=== PATIENT | female | born 1945 | race Caucasian/White ===

== ENCOUNTER 2024-03-13 17:18 | Outpatient (CLI) | payer MEDICARE, OTHER, SELFPAY ==
[2024-03-13 17:57] LABS: Appearance Urine Clear (Clear); Bacteria Urine None Seen /hpf; Bilirubin Urine Negative (Negative); Blood Urine Negative (Negative); Color Urine Yellow (Yellow); Glucose Urine UA Negative (Negative); Ketones Urine Negative (Negative); Leukocyte Esterase Ur Negative LEU/UL (Negative); Nitrate Urine Negative (Negative); Non Pathogenic Casts 0-2; Protein Urine Trace mg/dL (Negative); RBC Urine 0-2 /hpf (0-2); Specific Grav Ur 1.021 (1.001-1.035); Squamous Epithelial Cell Urine None Seen /hpf (Few); Urobilinogen Urine 0.2 mg/dL (<2.0); WBC Urine 0-5 /hpf (0-3); pH Urine 5.5 (5.0-9.0)
[2024-03-13 17:58] LABS: Add Urine Microscopic? YES
== END 2024-03-13 17:19 | disposition home or self-care (01) ==
LOC: ANHLAB 17:29
PROVIDERS: PCP Internal Medicine; Visit Provider Internal Medicine
DX: N18.30 Chronic kidney disease, stage 3 unspecified (principal); R30.0 Dysuria
CPT/HCPCS: 81001; 87086

== ENCOUNTER 2024-10-22 01:30 | Day surgery (SDC) | payer MEDICARE, OTHER, SELFPAY ==
[2024-10-16 12:23] VITALS: BMI 20.3
--- NOTE | 2024-10-16 12:46 | PC.NURSE ---
Spoke with PATIENT regarding medication WARFARIN. PATIENT verbalizes understanding that the last dose is to be taken on 10/17/2024 and the Endoscopist will instruct them when to restart after the procedure.
--- OUTSIDE RECORDS SUMMARY | 2024-10-22 01:33 | XMS_ITS | Encounter Summary ---
Author Organization [facility] Address [address] [place] [address] Care Team Providers Care Director [employer] Name Role Phone Lasha Mcallister MD Primary Care Provider [phone] Nathan Tyler MD Unavailable [phone] Encounter Details Date Type Department Care Team (Late st Contact Info) Description 03/02/2023 MyChart Message Enc [facility] [address] [place] [address] [facility], [facility] Provider Air Quality Message Social History Tobacco Use Types Packs/Day Years Used Date Smoking Tobacco: Former Cigarettes 0.5 5 1 967 - 1972 Smokeless Tobacco: Never Alcohol Use Standard Drinks/Week Comments Not Currently 0 (1 standard drink = 0.6 oz pur e alcohol) socially Humiliation, Afraid, Rape, and Kick questionnair e Answer Date Recorded Within the last year, have y ou been afraid of your partner or ex-partner? No 12/18/2022 Within the last year, have y ou been humiliated or emotionally abused in other ways by your partner or ex-partner? No Within the last year, have y ou been kicked, hit, slapped, or otherwise physically hurt by your partner or ex-partner? No 12/18/2022 Within the last year, have y ou been raped or forced to have any kind of sexual activity by your partner or ex-partner? No 12/18/2022 AUDIT-C Answer Date Recorded Frequency of Alcohol Consumption Monthly or less 10/09/2020 Average Number of Drinks Not on file 021 Frequency of Binge Drinking Not on file 12/2020 Overall Financial Resource Strain (CARDIA) Answe r Date Recorded How hard is it for you to pa y for the very basics like food, housing, medical care, and heating? Not hard at all 12/18/2022 PHQ-2 Answer Date Recorded PHQ-2 Score - If the patient scores above 3, please move on to questions 3-9 1 04/06/2021 Hunger Vital Sign Answer Date Recorded Within the past 12 months, y ou worried that your food would run out before you got the money to buy more. Never true 12/19/19 23 Within the past 12 months, t he food you bought just didn't last and you didn't have money to get more. Never true 12/18/2022 PRAPARE - Transportation Answer Date Re corded In the past 12 months, has l ack of transportation kept you from medical appointments or from getting medications? No 12/04 In the past 12 months, has l ack of transportation kept you from meetings, work, or from getting things needed for daily living? No 12/18/2022 Housing Stability Vital Sign Answer Warren e Recorded In the last 12 months, was t here a time when you were not able to pay the mortgage or rent on time? No 12/18/2022 In the last 12 months, how many places have you lived? 1 12/18/2022 In the last 12 months, was t here a time when you did not have a steady place to sleep or slept in a assisted (including now)? No 12/18/2022 Comments No Sex and Gender Information Value Date Recorded Sex Assigned at Female 12/17/2022 10:53 PM CDT Legal Sex Female 8:03 PM CDT Gender Identity Female 12/17/2022 10:53 PM CDT Sexual Orientation Straight 12/17/2022 10 :53 PM CDT Occupation Industry Job Start Date Job End Date Not on file Not on file Not on file Not on file documented as of this encounter Functional Status * Are you deaf or do you have serious difficulty hearing Answer Date of Assessment Author Status No 12/18/2022 4:54 AM CDT Yasmin Lopez RN Active * Are you blind or do you have serious difficulty seeing, even when wearing glasses? Answer Date of Assessment Author Status No 12/18/2022 4:54 AM CDT Yasmin Lopez RN Active * Do you have serious difficulty walking or climbing stairs? Answer Date of Assessment Author Status No 12/18/2022 4:54 AM CDT Yasmin Lopez RN Active * Do you have difficulty dressing or bathing? Answer Date of Assessment Author Status No 12/18/2022 4:54 AM CDT Yasmin Lopez RN Active * Because of a physical, mental, or emotional condition, do you have difficulty doing errands alone such as visiting a doctor's office or shopping? Answer Date of Assessment Author Status No 12/18/2022 4:54 AM CDT Yasmin Lopez RN Active documented as of this encounter Mental Status * Because of a physical, mental, or emotional condition, do you have serious difficulty concentrating, remembering, or making decisions? Answer Entry Date Author Status No 12/18/2022 4:54 AM CDT Yasmin Lopez RN Active documented in this encounter Plan of Treatment Upcoming Encounters Date Type Department Care Team (Late st Contact Info) Description 10/29/2024 9:45 AM AIRCRAFT INSTRUMENT REPAIRER Office Visit [facility] [phone] Josesito Torrez MD [facility]. [address] [id number] 01/21/2025 11:10 AM CDT [facility] [address] [id number] Josesito Torrez MD [facility]. [address] [phone] documented as of this encounter Visit Diagnoses Not on filedocumented in this encounter Additional Health Concerns Infection Onset Date Last Indicated Resolved Time COVID-19 Rule Out 05/30/2024 05/30/2024 05/30/2024 10:20 AM CDT C. difficile 07/12/2024 07/12/2024 Assessment Noted Time PHQ-9 Depression Total Score: 1 04/06/20 21 1:03 PM CDT documented as of this encounter Care Teams Director [employer] Relationship Specialty Start Date End Date Lasha Mcallister MD [address] [facility] [address] [place] [id number] PCP - General INTERNAL MEDICINE 07/06/17 Nathan Tyler MD [address] [facility] [address] [place] [address] Referring Physician 09/22/22 documented as of this encounter
--- OUTSIDE RECORDS SUMMARY | 2024-10-22 01:33 | XMS_ITS | Clinical Summary ---
Author Organization [facility] Address [address] [place] [address] Phone Care Team Providers Care Shear Tender Name Role Phone Lasha Mcallister MD Primary Care Provider [phone] Hugo Vo MD Unavailable [phone] Allergies Active Allergy Reactions Criticality Noted Date Comments Meperidine Vomiting,Unknown Low 03/03/2016 Potassium Chloride Diarrhea,Nausea 10/09/2020 Wheat Other (see Comments) 03/15/2024 Medications pantoprazole (PROTONIX) 40 MG Tablet Delayed Response Oral for 90 01/01/2023 Active warfarin (COUMADIN) 2.5 MG Tablet 1 tablet Oral Once a day 06/12/2024 Active buPROPion (WELLBUTRIN) 300 MG TABLET SR 24 HR XL tablet TAKE 1 TABLET BY MOUTH ONCE DAILY IN THE MORNING Oral 03/23/2022 Active amitriptyline (ELAVIL) 25 MG Tablet Take 50 mg by mouth. 12/01/2021 Active atorvastatin (LIPITOR) 20 MG Tablet 1 tablet Oral Once a day 01/22/2021 Active temazepam (RESTORIL) 15 MG Capsule Take 15 mg by mouth. 03/17/2024 Active spironolactone (ALDACTONE) 25 MG Tablet Take 0.5 Tablets by mouth daily. 07/01/2017 Active sotalol (BETAPACE) 120 MG Tablet SOTALOL HCL TABLET Active Multivitamin-Mi nerals (multiple vitamins-minera ls) Tablet Take 1 Tablet by mouth daily. 05/18/2017 Active latanoprost (XALATAN) 0.005 % Solution 08/03/2024 Active furosemide (LASIX) 40 MG Tablet Take 40 mg by mouth. 04/24/2024 Active cetirizine (ZyrTEC) 10 MG Tablet Take 10 mg by mouth daily. 05/30/2024 Active Calcium Carb-Cholecalci ferol (RA Calcium Plus Vitamin D) 600-5 MG-MCG Tablet Take 1 Tablet by mouth daily. 05/18/2017 Active benzonatate (TESSALON) 100 MG Capsule TAKE 1 CAPSULE BY MOUTH THREE TIMES DAILY NEEDED FOR COUGH 05/30/2024 Active albuterol 108 (90 Base) MCG/ACT Aerosol Solution take 2 Puffs by inhalation. 05/28/2021 Active Active Problems No known active problems Encounters Date Type Department Care Team Description 08/16/2024 1:45 PM EELER Office Visit [facility] [address] [address] Hugo Vo MD Iron deficiency anemia, unspecified iron deficiency anemia type (Primary Dx); Abnormal plasma viscosity 08/16/2024 Travel from Last 3 Months Family History Medical History Relation Name Comments Stroke Brother Chronic Obstructive Pulmonary Disease Father Stroke Sister 1 Relation Name Status Comments Brother Child 1 Alive Child 2 Alive Child 3 Alive Child 4 Alive Father Mother Sister 1 Sister 2 Alive Social History Tobacco Use Types Packs/Day Years Used Date Smoking Tobacco: Never Smokeless Tobacco: Never Tobacco Cessation:Counseling Given: Not Answered Alcohol Use Standard Drinks/Week Comments Not Currently 0 (1 standard drink = 0.6 oz pur e alcohol) Comments Unknown Sex and Gender Information Value Date Recorded Sex Assigned at Not on file Legal Sex Female 1:14 PM CDT Gender Identity Not on file Sexual Orientation Not on file Last Filed Vital Signs Vital Sign Reading Time Taken Comments Blood Pressure 124/70 08/16/2024 1:22 PM EELER Pulse 70 08/16/2024 1:22 PM EELER Temperature 35.9 C (96.6 F) 08/16/2024 1:22 PM EELER Respiratory Rate 18 08/16/2024 1:22 PM EELER Oxygen Saturation 99% 08/16/2024 1:22 PM EELER Inhaled Oxygen Concentration - - Weight 60 kg (132 lb 3.2 oz) 08/16/2024 1:22 PM EELER Height 170.2 cm (5' 7 ) 08/16/2024 1:22 PM EELER Body Mass Index 20.71 08/16/2024 1:22 PM EELER Plan of Treatment Upcoming Encounters Date Type Department Care Team (Late st Contact Info) Description 11/01/2024 2:00 PM EELER Office Visit [facility] [address] [address] Hugo Vo MD [address] [place] [address] Health Maintenance Due Date Last Done Comments Hepatitis C Virus (HCV) Screening 1945 TdaP Immunization 1945 Zoster Immunization (1 of 2) 1994 Respiratory Syncytial Virus (RSV) Immunization (Adult) (1 - 1-dose 75+ series) 2019 Pneumococcal Immunization (50+ years) (3 of 3 - PCV20 or PCV21) 11/30/2019 11/29/2014, 07/06/2000 Influenza Immunization (#1) 05/06/202406/05, 08/23/2021, 06/10/2020, Additional history exists SARS-COV-2 Immunization ( season) 2024 05/25/2022, 08/23/2021, 07/18/2021, Additional history exists DEXA Bone Density 07/14/2024 07/14/2022 Hepatitis B Immunization Aged Out No longer eligible based on patient's age to complete this topic Meningococcal Immunization (ACWY) Aged Out No longer eligible based on patient's age to complete this topic Rotavirus Immunization Aged Out No lo nger eligible based on patient's age to complete this topic Insurance MEDICARE [facility] Advance Directives Documents on File Type Date Recorded Patient Director Corporate Compliance Expl anation Power of Debt Collection Specialist for Health Care 04/27/2024 2:12 PM Care Teams Shear Tender Relationship Specialty Start Date End Date Lasha Mcallister MD [address] [address] PCP - General Internal Medicine 04/27/24 Hugo Vo MD [address] [address] Consulting Physician Oncology 04/27/24
--- OUTSIDE RECORDS SUMMARY | 2024-10-22 01:33 | XMS_ITS ---
Author Organization [facility] Address [address] [facility] [place] [address] Care Team Providers Care Health Information Director Name Role Phone REDD RICK MD Primary Care Provider Magdiel Schwab Unavailable [phone] REASON FOR VISIT Right Shoulder Pain MEDICATIONS Medication SIG (Take, Route, Frequency, Duration) Notes Start Date End Date Status Spironolactone 25 MG TAKE 1/2 (ONE-HALF) TABLET BY MOUTH ONCE DAILY Oral for 90 Active Pantoprazole Sodium 40 MG Oral for 90 Active Latanoprost 0.005 % INSTILL 1 DROP INTO EACH EYE AT BEDTIME Ophthalmic for 30 [id number],Aidei sharifa Active Furosemide 40 MG TAKE 1 TABLET BY MOUTH ONCE DAILY Oral for 90 Active buPROPion HCl ER (XL) 300 MG TAKE 1 TABLET BY MOUTH ONCE DAILY IN THE MORNING Oral Active Warfarin Sodium 2.5 MG 1 tablet Oral Onc e a day Active Temazepam 15 MG TAKE 1 CAPSULE BY MOUTH EVERY DAY AT BEDTIME Oral for 90 Active Atorvastatin Calcium 20 MG 1 tablet Oral Once a day Active VITAL SIGNS Blood pressure systolic 144 mm Hg 06/29/20 24 Blood pressure diastolic 59 mm Hg 024 Heart Rate 72 /min 06/29/2024 Respiratory Rate 18 /min 06/29/2024 Height 5 ft 7 in in 06/29/2024 Weight 141 lbs 06/29/2024 BMI 22.08 kg/m2 06/29/2024 Encounters Encounter Location Date Provider Diagnosis [facility] [address] [facility] [place] [address] 06/29/2024 Magdiel Lilly Primary osteoarthritis, right shoulder M19.011 ; Pain in right shoulder M25.511 and Bursitis of right shoulder M75.51 ASSESSMENTS Encounter Date Diagnosis Assessment Notes Treatment Notes Treatment Clinical Notes 06/29/2024 Primary osteoarthritis, right shoulder (ICD-10 - M19.011) 06/29/2024 Pain in right shoulder (ICD-10 - M25.511) 06/29/2024 Bursitis of right shoulder (ICD-10 - M75.51) PLAN OF TREATMENT Next Appt Details Follow Up: 2 Weeks opv, Reas on: Procedure Notes * Category Sub-Category Detail Notes Shoulder Joint Injection Under Fluoroscopy Locat ion: Right Anesthesia: Local without IV sed ation Operative Technique: After the risks, be nefits, alternative treatments and potential complications related to the procedure were discussed and written and informed consent was obtained, the patient was placed in the supine position on the fluoroscopy table. Standard ASA monitors were applied. The anterior surface of the right shoulder was prepped and draped in the usual sterile fashion with chlorhexidine 2%/IPA 70%. The subacromial space of the selected shoulder was identified under live x-ray guidance. A 25 gauge 1.5 inch needle was inserted in a gun barrel fashion under fluoroscopic guidance. The needle tip was placed into the subacromial space. The subcutaneous structures were anesthetized with 2 mL of 1% Preservative-Free lidocaine during needle placement. A solution of 10 mg of Preservative-Free Dexamethasone (10 mg/mL), plus 2 mL of 0.25% Preservative-Free bupivacaine was mixed and after negative aspiration 3 mL of this solution was slowly injected into the joint. The needle was removed, the skin was cleaned and a band-aid was placed over the puncture site. The patient tolerated the procedure well, was able to ambulate without difficulty and was monitored for 20 minutes. The patient remained hemodynamically and neurologically stable. No apparent complications were observed. Post-operative instructions were reviewed with the patient. The patient was then discharged home in good condition with a medical driver. X-ray time: 5 seconds Progress Notes * Examination Category Sub-Category Detail Notes Examination/ Pre-Anesthesia Assessment General: The patient is alert and franck ented X 3 in moderate distress secondary to pain HEENT: Normocephalic, atrau matic. PERRL. The oropharynx is clear Neck: There is full range of motion of the cervical spine Heart: Regular rate and rhy thm Chest: Clear to auscultatio n bilaterally Abdomen: Soft and benign with normal bowel sounds throughout Musculoskeletal and Extremities: There i s full range of motion of the bilateral upper and lower extremities. There is diffuse tenderness palpation about the right shoulder especially laterally over the deltoid. There is positive impingement at 90 degrees of abduction on the right. There is crepitus with range of motion testing of the right shoulder Neurological: There are no focal s trength deficits in the bilateral upper and lower extremities Skin: Clean, dry and intac t Psychiatric: Mood and affect are normal History and Physical Notes * HPI (History of Present Illness) Category Sub-Category Detail Notes Pain Management Radiographic Imaging An x-ray th oracic and lumbar spine done on 03/15/24 demonstrates minimal scoliosis convex towards the right in the mid thoracic spine and the left in the lower thoracic spine. There is multilevel DDD and spondylosis. There is diffuse DDD and spondylosis throughout the lumbar spine Assessment and Follow-up: Follow-up Plan documen jaron:: Yes MIPS Quality 2020: MIPS Documented:: Compliant
--- OUTSIDE RECORDS SUMMARY | 2024-10-22 01:33 | XMS_ITS | Patient Health Record ---
Author Organization [facility] Address [address] [place] [address] [place] [address] Care Team Providers Care Learning Disabilities Resource Teacher Name Role Phone REDD RICK MD Primary Care Provider Magdiel Schwab Unavailable [phone] ALLERGIES No Known Allergies REASON FOR REFERRAL No Information MEDICATIONS Medication SIG (Take, Route, Frequency, Duration) Notes Start Date End Date Status Furosemide 40 MG TAKE 1 TABLET BY MOUTH ONCE DAILY Oral for 90 Active buPROPion HCl ER (XL) 300 MG TAKE 1 TABLET BY MOUTH ONCE DAILY IN THE MORNING Oral Active Atorvastatin Calcium 20 MG 1 tablet Oral Once a day Active Temazepam 15 MG TAKE 1 CAPSULE BY MOUTH EVERY DAY AT BEDTIME Oral for 90 Active Spironolactone 25 MG TAKE 1/2 (ONE-HALF) TABLET BY MOUTH ONCE DAILY Oral for 90 Active Pantoprazole Sodium 40 MG Oral for 90 Active Latanoprost 0.005 % INSTILL 1 DROP INTO EACH EYE AT BEDTIME Ophthalmic for 30 [id number],Lisandra skaggs Active Warfarin Sodium 2.5 MG 1 tablet Oral Onc e a day Active SOCIAL HISTORY Tobacco Use: Social History Observation Description Date Details (start date - stop date) Never Smoker NA - NA Sex Assigned At : Social History Observation Description Sex Assigned At Unknown Tobacco Use/Smoking Question Answer Notes Are you a nonsmoker PROBLEMS Problem Type ICD Code Onset Dates Problem Status W/U Status Risk SNOMED Code Notes Problem Primary osteoarthriti s, right shoulder (M19.011) Active confirmed Localized, prim que osteoarthritis of the shoulder region (823930159) Problem Pain in right shoulder (M25.511) Active confirmed Pain of right shoulder region (finding) (2491365748) Problem Bursitis of right shoulder (M75.51) Active confirmed Bursitis of rig ht shoulder ([id number]) VITAL SIGNS Heart Rate 72 /min 06/29/2024 Respiratory Rate 18 /min 06/29/2024 Blood pressure diastolic 59 mm Hg 06/29/2024 Height 5 ft 7 in in 06/29/2024 Blood pressure systolic 144 mm Hg 06/29/2024 Weight 141 lbs 06/29/2024 BMI 22.08 kg/m2 06/29/2024 Encounters Encounter Location Date Provider Diagnosis [facility] [address] [place] [address] 06/14/2024 Magdiel Stynowick Primary osteoarthritis, right shoulder M19.011 ; Pain in right shoulder M25.511 and Bursitis of right shoulder M75.51 [facility] [address] [place] [address] 06/15/2024 Magdiel Stynowick Primary osteoarthritis, right shoulder M19.011 and Pain in right shoulder M25.511 [facility] [address] [place] [address] 06/29/2024 Magdiel Stynowick Primary osteoarthritis, right shoulder M19.011 ; Pain in right shoulder M25.511 and Bursitis of right shoulder M75.51 [facility] [address] [place] [address] 07/17/2024 Magdiel Stynowick Primary osteoarthritis, right shoulder M19.011 ; Pain in right shoulder M25.511 and Bursitis of right shoulder M75.51 ASSESSMENTS Encounter Date Diagnosis Assessment Notes Treatment Notes Treatment Clinical Notes 06/15/2024 Primary osteoarthritis, right shoulder (ICD-10 - M19.011) 06/15/2024 Pain in right shoulder (ICD-10 - M25.511) 06/29/2024 Primary osteoarthritis, right shoulder (ICD-10 - M19.011) 06/29/2024 Pain in right shoulder (ICD-10 - M25.511) 06/14/2024 Primary osteoarthritis, right shoulder (ICD-10 - M19.011) Schedule a right shoulder joint injection. The risks of this procedure including pain, bleeding, infection, nerve damage, insomnia, hyperglycemia, hair loss, muscle atrophy, skin depigmentation, weight gain, fluid retention, adrenal suppression, immunosuppression, osteoporosis resulting in fractures, avascular necrosis of the hip, cataracts, bleeding gastric ulcer, worsening pain and failure to relieve pain were discussed and the patient is agreeable to proceeding at this time. 06/14/2024 Pain in right shoulder (ICD-10 - M25.511) 07/17/2024 Primary osteoarthritis, right shoulder (ICD-10 - M19.011) 07/17/2024 Pain in right shoulder (ICD-10 - M25.511) 06/14/2024 Bursitis of right shoulder (ICD-10 - M75.51) 06/29/2024 Bursitis of right shoulder (ICD-10 - M75.51) 07/17/2024 Bursitis of right shoulder (ICD-10 - M75.51) PLAN OF TREATMENT No Information Insurance Providers Payer Name Payer Address Payer Phone Subscriber Number Group Number Insured Name Patient Relationship to Insured Coverage Start Date Coverage End Date Medicare [place] [address] [address] [place] [address] [id number] [place] Self - patient is the insured [employer] [address] [place], [place] [address] [id number] [place] Self - patient is the insured MEDICAL (GENERAL) HISTORY Medical History History ICD Code IBS Asthma GERD Diverticulitis Breast cancer Anemia Depression Migraine CHF AFIB Surgical History Surgery Date(Month/Year) Right mastectomy 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
--- OUTSIDE RECORDS SUMMARY | 2024-10-22 01:34 | XMS_ITS | Referral Summary ---
Author Organization [facility] Address [address] [place] [address] Care Team Providers Care Printmaker Name Role Phone Lasha Mcallister MD Primary Care Provider [phone] Source Comments [facility],non-owned Affiliates and Associated Physician Practices is amultiple site organization consisting of ambulatory clinics and hospital sitesin [place], [place], [place] and [place]. This disclosure is being madepursuant to the Care Everywhere program and may not contain all information available regarding this patient. Last updated 18.[facility] Allergies Active Allergy Reactions Criticality Noted Date Comments Meperidine Nausea and/or Vomiting Low 03/03/2016 Medications * Be aware that medications may not be up to date on this document. Alwaysverify current medications with the patient. Medication Sig Dispensed Refills Start Date End Date Status dabigatran (PRADAXA) 150 MG capsule Take 150 mg by mouth BID. 60 capsule 5 07/12/2017 Active amitriptyline (ELAVIL) 50 MG tablet Take 1 tablet by mouth DAILY. 04/26/2017 Active spironolactone (ALDACTONE) 25 MG tablet Take 25 mg by mouth DAILY. 30 tablet 6 07/01/2017 Active metoprolol tartrate (LOPRESSOR) 25 MG tablet Take 12.5 mg by mouth BID. 60 tablet 3 07/01/2017 Active potassium chloride (KLOR-CON M) 20 MEQ tablet Take 20 mEq by mouth BID. 60 tablet 3 06/03/2017 Active Multiple Vitamins-Minerals (MULTI-VITAMIN/MINERA LS) TABS Take 1 tablet by mouth DAILY. 05/18/2017 Active Calcium Carb-Cholecalciferol (CALCIUM + D3) 600-200 MG-UNIT Take 1 tablet by mouth. 05/18/2017 Active omeprazole (PRILOSEC) 10 MG capsule Take 20 mg by mouth. 05/18/2017 Active venlafaxine XR 24hr (EFFEXOR XR) 150 MG capsule Take 150 mg by mouth daily with breakfast. 04/27/2017 Active mometasone (ASMANEX 60 METERED DOSES) 220 MCG/INH inhaler 03/18/2017 Active Active Problems Problem Noted Date Diagnosed Date Abnormal results of thyroid function studies Shortness of breath 05/28/2017 Other specified postprocedural states 05/28/2017 Overview (12/05/2017): 05/27/2017 Pulmonary hypertension 05/28/2017 Overview (12/05/2017): Severe. 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 04/04/2017 Major depressive disorder, single episode 2016 Essential (primary) hypertension 07/03/2015 Dyspnea 07/03/2015 Palpitations 07/03/2015 Ventricular premature depolarization 07/02/2015 Overview (12/05/2017): Outflow tract PVCs QRS morphology negative in V1,V2 , AVR,AVL,and lead 1, positive in inferior leads, V3-V6 S/P Mid septal RVOT PVC ablation on 04-22-2015 Other malaise 06/19/2015 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 02/28/2015 Malignant neoplasm of female breast 02/28/2015 Noninfective gastroenteritis and colitis 015 Anxiety disorder 08/27/2014 Type 2 diabetes mellitus without complications 1 10/28/2013 Overview (12/05/2017): borderline Uncomplicated asthma 08/27/2014 Age-related osteoporosis wit hout current pathological fracture 08/27/2014 Social History Tobacco Use Types Packs/Day Years Used Date Smoking Tobacco: Former Cigarettes Q uit: 09/05/1970 Smokeless Tobacco: Never Alcohol Use Standard Drinks/Week Comments Yes 1.7 (1 standard drink = 0.6 oz p ure alcohol) Sex and Gender Information Value Date Recorded Sex Assigned at Not on file Gender Identity Not on file Sexual Orientation Not on file Last Filed Vital Signs Vital Sign Reading Time Taken Comments Blood Pressure 110/64 07/13/2017 10:18 AM TEXTILE CHEMIST Pulse 72 07/13/2017 10:18 AM TEXTILE CHEMIST Temperature 36.8 C (98.2 F) 07/01/2017 10:45 AM CDT Respiratory Rate 18 06/03/2017 1:20 PM CDT Oxygen Saturation 100% 07/01/2017 10:45 AM CDT Inhaled Oxygen Concentration - - Weight 64.4 kg (142 lb) 07/13/2017 10:18 AM TEXTILE CHEMIST Height 170.2 cm (5' 7 ) 07/13/2017 10:18 AM TEXTILE CHEMIST Body Mass Index 22.24 07/13/2017 10:18 AM TEXTILE CHEMIST Plan of Treatment Not on file Care Teams Printmaker Relationship Specialty Start Date End Date Lasha Mcallister MD [address] [place] [address] [phone] PCP - General 07/01/14
--- OUTSIDE RECORDS SUMMARY | 2024-10-22 01:34 | XMS_ITS ---
Author Organization [facility] Address [address] [place] [address] [place] [address] Care Team Providers Care Public Health Teacher Name Role Phone REDD RICK MD Primary Care Provider Magdiel Schwab Unavailable [phone] REASON FOR VISIT RT SHOULDER JOINT INJ (LATERAL DELTOID) MEDICATIONS Medication SIG (Take, Route, Frequency, Duration) Notes Start Date End Date Status Temazepam 15 MG TAKE 1 CAPSULE BY MOUTH EVERY DAY AT BEDTIME Oral for 90 Active Warfarin Sodium 2.5 MG 1 tablet Oral Onc e a day Active Pantoprazole Sodium 40 MG Oral for 90 Active Spironolactone 25 MG TAKE 1/2 (ONE-HALF) TABLET BY MOUTH ONCE DAILY Oral for 90 Active Latanoprost 0.005 % INSTILL 1 DROP INTO EACH EYE AT BEDTIME Ophthalmic for 30 [id number],Unavai lable Active Atorvastatin Calcium 20 MG 1 tablet Oral Once a day Active buPROPion HCl ER (XL) 300 MG TAKE 1 TABLET BY MOUTH ONCE DAILY IN THE MORNING Oral Active Furosemide 40 MG TAKE 1 TABLET BY MOUTH ONCE DAILY Oral for 90 Active Encounters Encounter Location Date Provider Diagnosis [facility] [address] [place] [address] 06/15/2024 Magdiel merlinmohsen Primary osteoarthritis, right shoulder M19.011 and Pain in right shoulder M25.511 ASSESSMENTS Encounter Date Diagnosis Assessment Notes Treatment Notes Treatment Clinical Notes 06/15/2024 Primary osteoarthritis, right shoulder (ICD-10 - M19.011) 06/15/2024 Pain in right shoulder (ICD-10 - M25.511) PLAN OF TREATMENT Next Appt Details Follow Up: 2 Weeks OPV, Reas on: Procedure Notes * Category Sub-Category [...] space. The subcutaneous structures were anesthetized with 3 mL of 1% Preservative-Free lidocaine during needle [...] discharged home in good condition with a refuse driver. X-ray time: 9 seconds Progress Notes * Examination Category Sub-Category [...] and Follow-up: Follow-up Plan documen jaron:: Yes [facility] Quality 2020: [facility] Documented:: Compliant
--- OUTSIDE RECORDS SUMMARY | 2024-10-22 01:34 | XMS_ITS | Patient Health Summary ---
Author Organization [facility] Address [address] [place] [address] Care Team Providers Care Coat Repair Inspector Name Role Phone Lasha Mcallister MD Primary Care Provider [phone] Note from [facility],non-owned Affiliates and Associated Physician Practices is amultiple site organization consisting of ambulatory clinics and hospital sitesin [place], [place], [place] and [place]. This disclosure is being madepursuant to the Care Everywhere program and may not contain all information available regarding this patient. Last updated 18.[facility] Allergies * Meperidine(Nausea and/or Vomiting) -Low Criticality Medications * Be aware that medications may not be up to date on this document. Alwaysverify current medications with the patient. * dabigatran (PRADAXA) 150 MG capsule(Started 07/12/2017) Take 150 mg by mouth BID. 5 refills left * amitriptyline (ELAVIL) 50 MG tablet(Started 04/26/2017) Take 1 tablet by mouth DAILY. * spironolactone (ALDACTONE) 25 MG tablet(Started 07/01/2017) Take 25 mg by mouth DAILY. 6 refills left * metoprolol tartrate (LOPRESSOR) 25 MG tablet(Started 07/01/2017) Take 12.5 mg by mouth BID. 3 refills left * potassium chloride (KLOR-CON M) 20 MEQ tablet(Started 06/03/2017) Take 20 mEq by mouth BID. 3 refills left * Multiple Vitamins-Minerals (MULTI-VITAMIN/MINERALS) TABS(Started 05/18/2017) Take 1 tablet by mouth DAILY. * Calcium Carb-Cholecalciferol (CALCIUM + D3) 600-200 MG-UNIT(Started 05/18/2017) Take 1 tablet by mouth. * omeprazole (PRILOSEC) 10 MG capsule(Started 05/18/2017) Take 20 mg by mouth. * venlafaxine XR 24hr (EFFEXOR XR) 150 MG capsule(Started 04/27/2017) Take 150 mg by mouth daily with breakfast. 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 Major depressive disorder, single episode 2016 Essential (primary) hypertension 07/03/2015 Dyspnea 07/03/2015 Palpitations 07/03/2015 Ventricular premature depolarization 07/02/2015 Other malaise 06/19/2015 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 02/28/2015 Malignant neoplasm of female breast 02/28/2015 Noninfective gastroenteritis and colitis 015 Anxiety disorder 08/27/2014 Type 2 diabetes mellitus without complications 1 10/28/2013 Uncomplicated asthma 08/27/2014 Age-related osteoporosis wit hout [...] Comments Blood Pressure 110/64 07/13/2017 10:18 AM [employer] Pulse 72 07/13/2017 10:18 AM [employer] Temperature 36.8 C (98.2 F) 07/01/2017 10:45 AM CDT Respiratory Rate 18 06/03/2017 1:20 PM CDT Oxygen Saturation 100% 07/01/2017 10:45 AM CDT Inhaled Oxygen Concentration - - Weight 64.4 kg (142 lb) 07/13/2017 10:18 AM [employer] Height 170.2 cm (5' 7 ) 07/13/2017 10:18 AM [employer] Body Mass Index 22.24 07/13/2017 10:18 AM [employer] Procedures * ECHO 2D ONLY WO COLOR OR DOPPLER(Performed 07/13/2017) * EKG 12-LEAD(Performed 07/04/2017) * TSH(Performed 07/01/2017) * T4 FREE(Performed 07/01/2017) * CBC W AUTO DIFFERENTIAL(Performed 07/01/2017) * BASIC METABOLIC PANEL (CALCIUM TOTAL)(Performed 07/01/2017) * MAGNESIUM BLOOD(Performed 07/01/2017) * XR CHEST 1VW PORTABLE(Performed 06/03/2017) * GLUCOSE ACCUCHECK(Performed 06/03/2017) * GLUCOSE ACCUCHECK(Performed 06/03/2017) * CBC W/O DIFFERENTIAL(Performed 06/03/2017) * BASIC METABOLIC PANEL (CALCIUM TOTAL)(Performed 06/03/2017) * PHOSPHORUS BLOOD(Performed 06/03/2017) * MAGNESIUM BLOOD(Performed 06/03/2017) * XR CHEST 1VW PORTABLE(Performed 06/03/2017) * GLUCOSE ACCUCHECK(Performed 06/02/2017) * GLUCOSE ACCUCHECK(Performed 06/02/2017) * URINALYSIS W/MICROSCOPIC NO CULTURE(Performed 06/02/2017) * URINALYSIS W/MICROSCOPIC NO CULTURE(Performed 06/02/2017) * CULTURE URINE(Performed 06/02/2017) * GLUCOSE ACCUCHECK(Performed 06/02/2017) * C DIFFICILE GDH AG + TOXIN A+B(Performed 06/02/2017) * GLUCOSE ACCUCHECK(Performed 06/02/2017) * XR CHEST 1VW PORTABLE(Performed 06/02/2017) * CBC W/O DIFFERENTIAL(Performed 06/02/2017) * BASIC METABOLIC PANEL (CALCIUM TOTAL)(Performed 06/02/2017) * PHOSPHORUS BLOOD(Performed 06/02/2017) * MAGNESIUM BLOOD(Performed 06/02/2017) * ECHO LIMITED OR FOLLOWUP(Performed 06/02/2017) * GLUCOSE ACCUCHECK(Performed 06/01/2017) * GLUCOSE ACCUCHECK(Performed 06/01/2017) * GLUCOSE ACCUCHECK(Performed 06/01/2017) * BASIC METABOLIC PANEL (CALCIUM TOTAL)(Performed 06/01/2017) * PHOSPHORUS BLOOD(Performed 06/01/2017) * MAGNESIUM BLOOD(Performed 06/01/2017) * CBC W/O DIFFERENTIAL(Performed 06/01/2017) * XR CHEST 1VW PORTABLE(Performed 06/01/2017) * GLUCOSE ACCUCHECK(Performed 06/01/2017) * GLUCOSE ACCUCHECK(Performed 05/31/2017) * GLUCOSE ACCUCHECK(Performed 05/31/2017) * GLUCOSE ACCUCHECK(Performed 05/31/2017) * BASIC METABOLIC PANEL (CALCIUM TOTAL)(Performed 05/31/2017) * CBC W/O DIFFERENTIAL(Performed 05/31/2017) * PHOSPHORUS BLOOD(Performed 05/31/2017) * MAGNESIUM BLOOD(Performed 05/31/2017) * XR CHEST 1VW PORTABLE(Performed 05/31/2017) * GLUCOSE ACCUCHECK(Performed 05/31/2017) * GLUCOSE ACCUCHECK(Performed 05/30/2017) * GLUCOSE ACCUCHECK(Performed 05/30/2017) * BASIC METABOLIC PANEL (CALCIUM TOTAL)(Performed 05/30/2017) * GLUCOSE ACCUCHECK(Performed 05/30/2017) * BASIC METABOLIC PANEL (CALCIUM TOTAL)(Performed 05/30/2017) * PHOSPHORUS BLOOD(Performed 05/30/2017) * MAGNESIUM BLOOD(Performed 05/30/2017) * CBC W/O DIFFERENTIAL(Performed 05/30/2017) * GLUCOSE ACCUCHECK(Performed 05/30/2017) * XR CHEST 1VW PORTABLE(Performed 05/30/2017) * EKG 12-LEAD(Performed 05/30/2017) * GLUCOSE ACCUCHECK(Performed 05/29/2017) * GLUCOSE ACCUCHECK(Performed 05/29/2017) * XR CHEST 1VW PORTABLE(Performed 05/29/2017) * XR CHEST 1VW PORTABLE(Performed 05/29/2017) * GLUCOSE ACCUCHECK(Performed 05/29/2017) * XR CHEST 1VW PORTABLE(Performed 05/29/2017) * SEROTONIN RELEASE ASSAY PANEL(Performed 05/29/2017) * HEPARIN PLATELET INDUCED ANTIBODY(Performed 05/29/2017) * CALCIUM IONIZED WHOLE BLOOD(Performed 05/29/2017) * MAGNESIUM BLOOD(Performed 05/29/2017) * GLUCOSE ACCUCHECK(Performed 05/29/2017) * XR CHEST 1VW PORTABLE(Performed 05/29/2017) * CALCIUM IONIZED WHOLE BLOOD(Performed 05/29/2017) * BASIC METABOLIC PANEL (CALCIUM TOTAL)(Performed 05/29/2017) * PHOSPHORUS BLOOD(Performed 05/29/2017) * MAGNESIUM BLOOD(Performed 05/29/2017) * CBC W/O DIFFERENTIAL(Performed 05/29/2017) * EKG 12-LEAD(Performed 05/29/2017) * GLUCOSE ACCUCHECK(Performed 05/28/2017) * GLUCOSE ACCUCHECK(Performed 05/28/2017) * GLUCOSE ACCUCHECK(Performed 05/28/2017) * GLUCOSE ACCUCHECK(Performed 05/28/2017) * GLUCOSE ACCUCHECK(Performed 05/28/2017) * GLUCOSE ACCUCHECK(Performed 05/28/2017) * GLUCOSE ACCUCHECK(Performed 05/28/2017) * GLUCOSE ACCUCHECK(Performed 05/28/2017) * XR CHEST 1VW PORTABLE(Performed 05/28/2017) * GLUCOSE ACCUCHECK(Performed 05/28/2017) * URINALYSIS W/MICROSCOPIC NO CULTURE(Performed 05/28/2017) * GLUCOSE ACCUCHECK(Performed 05/28/2017) * MAGNESIUM BLOOD(Performed 05/28/2017) * BLOOD GASES ARTERIAL(Performed 05/28/2017) * CALCIUM IONIZED WHOLE BLOOD(Performed 05/28/2017) * GLUCOSE ACCUCHECK(Performed 05/28/2017) * GLUCOSE ACCUCHECK(Performed 05/28/2017) * ECHO COMPLETE(Performed 05/28/2017) * EKG 12-LEAD(Performed 05/28/2017) * EKG 12-LEAD(Performed 05/28/2017) * EKG 12-LEAD(Performed 05/28/2017) * CULTURE BLOOD(Performed 05/27/2017) * CULTURE BLOOD(Performed 05/27/2017) * CULTURE URINE(Performed 05/27/2017) * CBC W/O DIFFERENTIAL(Performed 05/27/2017) * BASIC METABOLIC PANEL (CALCIUM TOTAL)(Performed 05/27/2017) * PHOSPHORUS BLOOD(Performed 05/27/2017) * MAGNESIUM BLOOD(Performed 05/27/2017) * SVO2 FOR RECALIBRATION(Performed 05/27/2017) * BLOOD GASES ARTERIAL(Performed 05/27/2017) * CALCIUM IONIZED WHOLE BLOOD(Performed 05/27/2017) * GLUCOSE ACCUCHECK(Performed 05/27/2017) * GLUCOSE ACCUCHECK(Performed 05/27/2017) * GLUCOSE ACCUCHECK(Performed 05/27/2017) * BLOOD GASES ARTERIAL(Performed 05/27/2017) * GLUCOSE ACCUCHECK(Performed 05/27/2017) * BLOOD GASES MARIA ELENA(Performed 05/27/2017) * SVO2 FOR RECALIBRATION(Performed 05/27/2017) * BLOOD GASES ARTERIAL(Performed 05/27/2017) * GLUCOSE ACCUCHECK(Performed 05/27/2017) * BLOOD GASES ARTERIAL(Performed 05/27/2017) * GLUCOSE ACCUCHECK(Performed 05/27/2017) * BLOOD GASES ARTERIAL(Performed 05/27/2017) * GLUCOSE ACCUCHECK(Performed 05/27/2017) * SVO2 FOR RECALIBRATION(Performed 05/27/2017) * GLUCOSE ACCUCHECK(Performed 05/27/2017) * XR CHEST 1VW PORTABLE(Performed 05/27/2017) * GLUCOSE ACCUCHECK(Performed 05/27/2017) * XR CHEST 1VW PORTABLE(Performed 05/27/2017) * SVO2 FOR RECALIBRATION(Performed 05/27/2017) * BLOOD GASES MARIA ELENA(Performed 05/27/2017) * CBC W/O DIFFERENTIAL(Performed 05/27/2017) * BASIC METABOLIC PANEL (CALCIUM TOTAL)(Performed 05/27/2017) * PHOSPHORUS BLOOD(Performed 05/27/2017) * MAGNESIUM BLOOD(Performed 05/27/2017) * PTT SLH(Performed 05/27/2017) * PT-INR SLH(Performed 05/27/2017) * SVO2 FOR RECALIBRATION(Performed 05/27/2017) * BLOOD GASES ARTERIAL(Performed 05/27/2017) * CALCIUM IONIZED WHOLE BLOOD(Performed 05/27/2017) * GLUCOSE ACCUCHECK(Performed 05/27/2017) * FIBRINOGEN ACTIVITY(Performed 05/27/2017) * PTT [facility](Performed 05/27/2017) * CBC W/O DIFFERENTIAL(Performed 05/27/2017) * PT-INR SL[facility](Performed 05/27/2017) * BLOOD GASES ART COMPLETE SLH OR(Performed 05/27/2017) * ACT - POCT (IP) SL[facility](Performed 05/27/2017) * ACT - POCT (IP) SLH(Performed 05/27/2017) * BLOOD GASES ART COMPLETE [facility] OR(Performed 05/27/2017) * ACT - POCT (IP) SL[facility](Performed 05/27/2017) * BLOOD GASES MARIA ELENA(Performed 05/27/2017) * BLOOD GASES ART COMPLETE [facility] OR(Performed 05/27/2017) * ACT - POCT (IP) [facility](Performed 05/27/2017) * CULTURE URINE(Performed 05/27/2017) * URINALYSIS W/MICROSCOPIC NO CULTURE(Performed 05/27/2017) * ACT - POCT (IP) SL[facility](Performed 05/27/2017) * BLOOD GASES MARIA ELENA(Performed 05/27/2017) * ACT - POCT (IP) SL[facility](Performed 05/27/2017) * CROSSMATCH RBC LEUKOREDUCED(Performed 05/27/2017) * GLUCOSE ACCUCHECK(Performed 05/27/2017) * TYPE + SCREEN PANEL(Performed 05/27/2017) * CBC W AUTO DIFFERENTIAL(Performed 05/27/2017) * CBC W AUTO DIFFERENTIAL(Performed 05/27/2017) * COMPLETE PFT W/WO BRONCHODILATOR(Performed 05/24/2017) * VAS CAROTID DUPLEX BILATERAL(Performed 05/24/2017) * CT CHEST WO CONTRAST(Performed 05/24/2017) * URINALYSIS W/MICROSCOPIC NO CULTURE(Performed 05/18/2017) * CULTURE URINE(Performed 05/18/2017) * TYPE + SCREEN PANEL(Performed 05/18/2017) * HEMOGLOBIN A1C(Performed 05/18/2017) * COMPREHENSIVE METABOLIC PANEL(Performed 05/18/2017) * MAGNESIUM BLOOD(Performed 05/18/2017) * PHOSPHORUS BLOOD(Performed 05/18/2017) * CBC W AUTO DIFFERENTIAL(Performed 05/18/2017) * PTT SLH(Performed 05/18/2017) * PT-INR SL[facility](Performed 05/18/2017) * CBC W AUTO DIFFERENTIAL(Performed 05/18/2017) * XR CHEST 2VW(Performed 05/18/2017) * ECHO JUANJO TRANSESOPHAGEAL(Performed 05/18/2017) * EKG 12-LEAD(Performed 05/18/2017) * PROC MOBILE CV TELEMETRY(Performed 04/08/2017) * CCL CATH RT LT HEART ARTERIES VENTRICLES(Performed 04/04/2017) * CBC W/O DIFFERENTIAL(Performed 04/04/2017) * BASIC METABOLIC PANEL (CALCIUM TOTAL)(Performed 04/04/2017) * PT-INR SL[facility](Performed 04/04/2017) * ECHO 2D ONLY WO COLOR OR DOPPLER(Performed 03/21/2017) * EKG 12-LEAD(Performed 03/18/2017) * TSH HI LOW REFLEX FREE T4(Performed 03/18/2017) * LAB HISTORICAL RESULTS-ONBASE(Performed 03/11/2017) * NM MYOCARD PERF REST STRESS(Performed 03/03/2016) * PT-INR SL[facility](Performed 02/27/2016) * EKG 12-LEAD(Performed 02/18/2016) * PT-INR [facility](Performed 02/09/2016) * PT-INR [facility](Performed 01/28/2016) * PT-INR [facility](Performed 01/21/2016) * PT-INR [facility](Performed 01/09/2016) * PT-INR [facility](Performed 12/30/2015) * PT-INR [facility](Performed 12/26/2015) * PT-INR [facility](Performed 12/17/2015) * HEMOGLOBIN A1C(Performed 12/08/2015) * VITAMIN B12(Performed 12/08/2015) * CBC W AUTO DIFFERENTIAL(Performed 12/08/2015) * PT-INR SL[facility](Performed 12/08/2015) * COMPREHENSIVE METABOLIC PNL PLASMA(Performed 12/08/2015) * URIC ACID BLOOD(Performed 12/08/2015) * METHYLMALONIC ACID + HOMOCYSTEINE(Performed 12/08/2015) * JOLANTA SCREEN IFA+RHEUMATOID ARTHRITIS PANEL(Performed 12/08/2015) * LIPID PROFILE(Performed 12/08/2015) * PT-INR SL[facility](Performed 11/14/2015) * PT-INR [facility](Performed 11/03/2015) * PT-INR [facility](Performed 10/31/2015) * PT-INR [facility](Performed 07/02/2015) * PT-INR [facility](Performed 06/11/2015) * PT-INR [facility](Performed 05/07/2015) * PT-INR [facility](Performed 04/28/2015) * EP ABLATION SVT(Performed 04/22/2015) * BASIC METABOLIC PANEL (CALCIUM TOTAL)(Performed 04/22/2015) * PT-INR SL[facility](Performed 04/22/2015) * CBC W AUTO DIFFERENTIAL(Performed 04/22/2015) * CBC W AUTO DIFFERENTIAL(Performed 04/22/2015) * PT-INR SL[facility](Performed 04/17/2015) * PT-INR [facility](Performed 04/09/2015) * PT-INR [facility](Performed 03/05/2015) * EKG 12-LEAD(Performed 02/28/2015) * PT-INR SL[facility](Performed 01/29/2015) * ECHO 2D ONLY WO COLOR OR DOPPLER(Performed 01/14/2015) * PT-INR [facility](Performed 01/08/2015) * PT-INR [facility](Performed 12/30/2014) * PT-INR [facility](Performed 12/11/2014) * PT-INR [facility](Performed 11/29/2014) * PT-INR [facility](Performed 11/22/2014) * PT-INR [facility](Performed 11/13/2014) * PT-INR [facility](Performed 11/13/2014) * PT-INR [facility](Performed 11/06/2014) * PT-INR [facility](Performed 10/28/2014) * PT-INR [facility](Performed 10/14/2014) * EVENT MONITOR(Performed 09/30/2014) * PT-INR [facility](Performed 09/20/2014) * PT-INR [facility](Performed 09/09/2014) * PT-INR [facility](Performed 08/30/2014) * EKG 12-LEAD(Performed 08/26/2014) * BUN(Performed 09/05/1998) * TSH(Performed 09/05/1998) * HEMOGLOBIN A1C(Performed 09/05/1998) * CALCIUM BLOOD(Performed 09/05/1998) * LIPID PROFILE(Performed 09/05/1998) * CREATININE BLOOD(Performed 09/05/1998) * PT-INR SL[facility](Performed 09/05/1998) * PT-INR [facility](Performed 09/05/1998) Results * ECHO 2D ONLY WO COLOR OR DOPPLER (07/13/2017 2:51 PM [employer]) Only the most recent of3 resultswithin the time period is included. Anatomical Region Laterality Modality Other Narrative 07/13/2017 2:51 PM [employer] [facility] CARDIOLOGY 2-D & M-Mode Echocardiogram Report Color Flow Doppler Report Patients Name: Lacie Perez : 1945 Age: 72 y.o. Gender: female Date of Test: 07/13/2017 Referring Physician: Carina Tang MD [address] [place] [address] Primary Care Physician: Lasha Mcallister Introduction: Lacie Perez is a 72 y.o. female s/p Mitral and Tricuspid valve repair. Indication: Dizzy Chamber Measurements LV Internal Dimension Systole (cm): 2.5 cm LV Internal Dimension Diastole (cm): 4.7 cm Septal Thickness (cm): 0.7 cm Posterior Wall Thickness (cm): 1 cm Aortic Root Measurement (cm): 2.9 cm Left Atrium Measurement (cm): 3 cm LVOT Diameter (cm): 1.9 cm Ejection Fraction 65% Color Flow and Doppler Waveform Analysis Aortic Velocities: AV Max (m/s): 1.6 m/s LVOT max (m/s): 1.2 m/s Mitral Velocities: E (m/s): 1.9 m/s Tricuspid Velocities: Max Tricuspid Valve Velocity (m/s): 1.1 m/s PulmonicVelocities: Max Pulmonic Valve Velocity (m/s): 1.3 m/s OVERALL INTERPRETATION: - Normal left ventricular size and systolic function. Ejection fraction is estimated to be 65%. - Normal right ventricular size and systolic function. - No abnormalities of the aorta or pericardium. - Normal aortic valve structure and velocities. - There is a mitral annuloplasty ring visualized, with normal mitral valve structure and velocities. Trivial mitral regurgitation. - There is a tricuspid annuloplasty ring visualized, with normal tricuspid valve structure and velocities. Mild tricuspid regurgitation. - Calculated right ventricular systolic pressure of < 35 mmHg, which is normal. - Normal pulmonary valve structure and velocities. Mild pulmonic regurgitation. Supervising Physician: Carina Tang M.D. Reading Physician: Benji Butts MD Procedure Note Provider, MD Win - 02/10/2018 [place] [id number] CARDIOLOGY 2-D & M-Mode Echocardiogram Report Color Flow Doppler Report Patients Name: Lacie Perez : 1945 Age: 72 y.o. Gender: female Date of Test: 07/13/2017 Referring Physician: Carina Tang MD [address] [facility] [address] [place] [address] Primary Care Physician: Lasha Mcallister Introduction: Lacie Perez is a 72 y.o. female s/p Mitral and Tricuspidvalve repair. Indication: Dizzy Chamber Measurements LV Internal Dimension Systole (cm): 2.5 cm LV Internal Dimension Diastole (cm): 4.7 cm Septal Thickness (cm): 0.7 cm Posterior Wall Thickness (cm): 1 cm Aortic Root Measurement (cm): 2.9 cm Left Atrium Measurement (cm): 3 cm LVOT Diameter (cm): 1.9 cm Ejection Fraction 65% Color Flow and Doppler Waveform Analysis Aortic Velocities: AV Max (m/s): 1.6 m/s LVOT max (m/s): 1.2 m/s Mitral Velocities: E (m/s): 1.9 m/s Tricuspid Velocities: Max Tricuspid Valve Velocity (m/s): 1.1 m/s PulmonicVelocities: Max Pulmonic Valve Velocity (m/s): 1.3 m/s OVERALL INTERPRETATION: - Normal left ventricular size and systolic function. Ejection fraction isestimated to be 65%. - Normal right ventricular size and systolic function. - No abnormalities of the aorta or pericardium. - Normal aortic valve structure and velocities. - There is a mitral annuloplasty ring visualized, with normal mitral valvestructure and velocities. Trivial mitral regurgitation. - There is a tricuspid annuloplasty ring visualized, with normal tricuspidvalve structure and velocities. Mild tricuspid regurgitation. - Calculated right ventricular systolic pressure of < 35 mmHg, which isnormal. - Normal pulmonary valve structure and velocities. Mild pulmonicregurgitation. Supervising Physician: Carina Tang M.D. Reading Physician: Benji Butts MD Carina Tang MD ECHOCARDIOGRAPHY RAD IANT * EKG 12-LEAD (07/04/2017 5:42 PM CDT) Only the most recent of11 resultswithin the time period is included. Margoth Forman MANAGER OF APPLICATIONS DEVELOPMENT-PASSENGER CAR CLEANING SUPERVISOR ECG ORDERAB LES [facility] RADIOLOGY * (ABNORMAL) CBC W AUTO DIFFERENTIAL (07/01/2017 2:13 PM CDT) Only the most recent of8 resultswithin the time period is included. WBC 5.9 3.8 - 10.8 Thousand/u L [facility]) RBC 3.10(L) 3.80 - 5.10 Million/uL [facility]) Hemoglobin 9.1(L) 11.7 - 15.5 g/dL [facility]) Hematocrit 28.3(L) 35.0 - 45.0 % [facility]) MCV 91.3 80.0 - 100.0 fL [facility]) MCH 29.4 27.0 - 33.0 pg [facility]) MCHC 32.2 32.0 - 36.0 g/dL [facility]) RDW-CV 14.0 11.0 - 15.0 % [facility]) Platelet 210 140 - 400 Thousand/u L [facility]) MPV 9.4 7.5 - 12.5 fL [facility]) Neutrophils Absolute 3,711 1,500 - 7,800 cells/uL [facility]) Lymphocyte Absolute Manual 1,387 850 - 3,900 cells/uL [facility]) Monocytes Absolute 330 200 - 950 cells/uL [facility]) Eosinophils Absolute 443 15 - 500 cells/uL [facility]) Basophil Absolute Manual 30 0 - 200 cells/uL [facility]) Neutrophils % 62.9 % [facility]) Lymphocytes % 23.5 % [facility]) Monocytes % 5.6 % [facility]) Eosinophils % 7.5 % [facility]) Basophil % 0.5 % [facility]) Comment: Test Performed at: [facility] [address] [id number] [place] [address] ARA TURPIN DO,MPH 07/01/2017 2:13 PM CDT 07/01/2017 2:14 PM CDT Margoth Forman APRN-PASSENGER CAR CLEANING SUPERVISOR LAB - HEMAT OLOGY ORDERABLES [facility]) * (ABNORMAL) BASIC METABOLIC PANEL (CALCIUM TOTAL) (07/01/2017 2:13 PM CDT) Only the most recent of12 resultswithin the time period is included. Glucose 167(H) 65 - 99 mg/dL [facility]) Comment: Fasting reference interval For someone without known diabetes, a glucose value >125 mg/dL indicates that they may have diabetes and this should be confirmed with a follow-up test. BUN 11 7 - 25 mg/dL [facility]) Creatinine 0.84 0.60 - 0.93 mg/dL [facility]) Comment: For patients >49 years of age, the reference limit for Creatinine is approximately 13% higher for people identified as -[place]. eGFR non- 69 > OR = 60 mL/min/1 .73m2 [facility]) eGFR 80 > OR = 60 mL/min/1 .73m2 [facility]) BUN/Creatinine Ratio NOT APPLICABLE 6 - 22 (calc) [facility]) Sodium 139 135 - 146 mmol/L [facility]) Potassium 4.0 3.5 - 5.3 mmol/L [facility]) Chloride 107 98 - 110 mmol/L [facility]) CO2 23 20 - 31 mmol/L [facility]) Calcium 9.3 8.6 - 10.4 mg/dL [facility]) Comment: Test Performed at: [facility] [place] [address] ARA TURPIN DO,MPH 07/01/2017 2:13 PM CDT 07/01/2017 2:14 PM CDT Margoth Forman APRN-PASSENGER CAR CLEANING SUPERVISOR LAB - CHEMI STRY ORDERABLES [facility]) * MAGNESIUM BLOOD (07/01/2017 2:13 PM CDT) Only the most recent of12 resultswithin the time period is included. Magnesium 2.2 1.5 - 2.5 mg/dL [facility]) Comment: Test Performed at: [place] [id number] [id number] ARA TURPIN DO,MPH 07/01/2017 2:13 PM CDT 07/01/2017 2:14 PM CDT Margoth Forman APRN-PASSENGER CAR CLEANING SUPERVISOR LAB - CHEMI STRY ORDERABLES [facility]) * (ABNORMAL) TSH (07/01/2017 2:13 PM CDT) Only the most recent of2 resultswithin the time period is included. TSH 0.12(L) 0.40 - 4.50 mIU/L [facility] ([facility]) Comment: REPORT COMMENT: FASTING:NO Test Performed at: [facility] [id number] [place] [address] ARA TURPIN DO,MPH 07/01/2017 2:13 PM CDT 07/01/2017 2:14 PM CDT Margoth Aldridges MANAGER OF APPLICATIONS DEVELOPMENT-PASSENGER [employer] SUPER[employer]OR LAB - CHEMI STRY ORDERABLES [facility] ([facility]) * T4 FREE (07/01/2017 2:13 PM CDT) T4 Free 1.2 0.8 - 1.8 ng/dL [facility] ([facility]) Comment: Test Performed at: [facility] [address] [address] ARA TURPIN DO,MPH 07/01/2017 2:13 PM CDT 07/01/2017 2:14 PM CDT Margoth Forman ANTHONY-PASSENGER [employer] SUPERVISOR LAB - CHEMI STRY ORDERABLES [facility] ([facility]) * XR CHEST 1VW PORTABLE (06/03/2017 11:58 AM CDT) Only the most recent of13 resultswithin the time period is included. Anatomical Region Laterality Modality Chest Other Impressions 06/03/2017 1:11 PM CDT IMPRESSION: Possible trace right apical pneumothorax post chest tube removal. This report was electronically signed by DAYSI BILLINGSLEY M.D. on 06/03/2017 1:11 PM . Narrative 06/03/2017 1:11 PM CDT Exam: PX CHEST 1 VW Date: 06/03/2017 11:58 AM History: s/p right pleural CT removal, pleural assessment FINDINGS: The right chest tube has been removed since the exam at 5:45 AM. Perhaps a trace right apical pneumothorax is seen with image manipulation. Small left pleural effusion is unchanged. There is no pulmonary consolidation. The pulmonary vasculature is upper limits of normal. The heart size is normal for technique. Mitral and tricuspid valvuloplasty are again seen. Sternal wires are intact and aligned. Mediastinal clips are noted. Clips are seen in the right axilla. Procedure Note Daysi Billingsley MD - 12/02/2017 Exam: PX CHEST 1 VW Date: 06/03/2017 11:58 AM History: s/p right pleural CT removal, pleural assessment FINDINGS: The right chest tube has been removed since the exam at 5:45 AM.Perhaps a trace right apical pneumothorax is seen with image manipulation.Small left pleural effusion is unchanged. There is no pulmonaryconsolidation. The pulmonary vasculature is upper limits of normal. The heart size is normal for technique. Mitraland tricuspid valvuloplasty are again seen. Sternal wires are intact andaligned. Mediastinal clips are noted. Clips are seen in the rightaxilla. IMPRESSION IMPRESSION: Possible trace right apical pneumothorax post chest tube removal. This report was electronically signed by DAYSI BILLINGSLEY M.D. on 06/03/20171:11 PM . Billie Almanzar PA-C DIAGNOSTIC IMAGING ORDERABLES * (ABNORMAL) GLUCOSE ACCUCHECK (06/03/2017 11:48 AM CDT) Only the most recent of45 resultswithin the time period is included. Pathologist [facility] Glucose, Fingerstick 124(H) 70-115mg/d L mg/dL [facility] (TERRY) Comment:Cartography Teacher: STEPHAN Sullivan 06/03/2017 11:4 8 AM CDT Zachary Hyde MD LAB - CHEMISTRY MICK CALDERON [facility] ([place]) * (ABNORMAL) CBC W/O DIFFERENTIAL (06/03/2017 6:20 AM CDT) Only the most recent of10 resultswithin the time period is included. Pathologist [facility] WBC 9.7 3.5 - 10.5 10 3/uL [facility] RBC 2.58(L) 3.90 - 5.00 10 6/uL [facility] Hemoglobin 7.6(L) 12.0 - 15.5 g/dL [facility] Hematocrit 23.2(L) 35.0 - 45.0 % [facility] MCV 89.9 81.0 - 97.0 fL [facility] MCH 29.5 28.0 - 34.0 pg [facility] MCHC 32.8 32.0 - 36.0 g/dL [facility] Platelet Count 141(L) 150 - 400 10 3/uL [facility] RDW-SD 46.9 36.0 - 50.0 fL [facility] RDW-CV 14.5 11.2 - 14.8 % [facility] MPV 10.0 9.3 - 12.8 fL [facility] Blood specimen (specimen) BLOOD SPECIMEN / Unknown 06/03/2017 6:20 AM CDT 06/03/2017 6:31 AM CDT Lacie Cummins APRNKIN LAB - HEMATOL OGY ORDERABLES [address] [phone] * PHOSPHORUS BLOOD (06/03/2017 6:20 AM CDT) Only the most recent of9 resultswithin the time period is included. Phosphorus 2.8 2.3 - 4.7 mg/dL [facility] Blood specimen (specimen) BLOOD SPECIMEN / Unknown 06/03/2017 6:20 AM CDT 06/03/2017 6:30 AM CDT Lacie Cummins APRNKIN LAB - COMPUTER OPERATIONS SPECIALIST RY ORDERABLES [address] [phone] * (ABNORMAL) URINALYSIS W/MICROSCOPIC NO CULTURE (06/02/2017 3:16 PM CDT) Only the most recent of5 resultswithin the time period is included. Color UA Yellow Straw, Yellow, Colorless, Light Yellow [facility] Clarity UA Hazy(A) Clear [facility] Specific Annabella UA 1.017 1.001 - 1.030 [facility] pH UA 5.5 5.0 - 8.0 [facility] Protein UA 20 <=20 mg/dL [facility] Glucose UA Negative Negative mg/dL [facility] Ketone UA 40(A) Negative mg/dL [facility] Bilirubin UA Negative Negative mg/dL [facility] Blood UA Moderate(A) Negative [facility] Nitrite UA Positive(A) Negative [facility] Leukocyte Esterase Large(A) Negative [facility] Urobilinogen UA <2.0 <2.0 mg/dL [facility] RBC UA 9(H) 0 - 8 /HPF [facility] WBC UA 45(H) 0 - 2 /HPF [facility] Bacteria UA Moderate(A) Rare, Occasional, None /HPF [facility] Squamous Epithelial Cells UA 3(H) 0 - 1 /HPF [facility] Hyaline Casts UA 2 0 - 2 /LPF [facility] Urine specimen (specimen) MISCELLANEOUS SAMPLES / Unknown 06/02/2017 3:16 PM CDT 06/02/2017 3:21 PM CDT Narrative [facility] - 06/02/2017 3:30 PM CDT Please straight cath for Ua sample Billie Almanzar PA-C LAB - URINALYSIS OR DERABLES Performing Organization Address City/State/[facility] Co de Phone Number [address] [phone] * (ABNORMAL) CULTURE URINE (06/02/2017 11:27 AM CDT) Only the most recent of4 resultswithin the time period is included. Culture Urine ESCHERICHIA COLI(A) [facility] Comment:>100,000 CFU/mL [facility] erichia Coli Culture Urine KLEBSIELLA PNEUMONIAE SSP PNEUMONIAE(A) [facility] Comment:50,000-100,000 CFU/m L Klebsiella Pneumoniae Ssp Pneumoniae Urine specimen (specimen) (Urine, Liriano Cath) 06/02/2017 11:27 AM CDT 06/02/2017 11:40 AM CDT Narrative [facility] - 06/05/2017 10:25 AM CDT Specimen Type->Urine Organism Antibiotic Method Susceptibility Escherichia coli Amikacin SUSCEPTIBILITY <=2: Sensitive Escherichia coli Ampicillin SUSCEPTIBILITY 4: Sensitive Escherichia coli Ampicillin-sulbactam SUSCEPTIBILITY 4: Sensitive Escherichia coli Cefazolin SUSCEPTIBILITY <=4: Sensitive Escherichia coli Cefepime SUSCEPTIBILITY <=1: Sensitive Escherichia coli Ceftazidime SUSCEPTIBILITY <=1: Sensitive Escherichia coli Ceftriaxone SUSCEPTIBILITY <=1: Sensitive Escherichia coli Ertapenem SUSCEPTIBILITY <=0.5: Sensitive Escherichia coli Gentamicin SUSCEPTIBILITY <=1: Sensitive Escherichia coli Imipenem SUSCEPTIBILITY <=0.25: Sensitive Escherichia coli Levofloxacin SUSCEPTIBILITY <=0.12: Sensitive Escherichia coli Nitrofurantoin SUSCEPTIBILITY <=16: Sensitive Escherichia coli Piperacillin-tazobactam SUSCEPTIBILIT Y <=4: Sensitive Escherichia coli Tobramycin SUSCEPTIBILITY <=1: Sensitive Escherichia coli Trimethoprim-sulfame thoxaz ole SUSCEPTIBILITY <=20: Sensitive Escherichia coli Extended-Spectrum Beta-Lactamase SUSCEPTIBILITY Neg: - Klebsiella pneumoniae ssp pneumoniae Amikacin SUSCEPTIBILITY <=2: Sensitive Klebsiella pneumoniae ssp pneumoniae Ampicillin SUSCEPTIBILITY >=32: Resistant Klebsiella pneumoniae ssp pneumoniae Ampicillin-sulbactam SUSCEPTIBILITY 4: Sensitive Klebsiella pneumoniae ssp pneumoniae Cefazolin SUSCEPTIBILITY <=4: Sensitive Klebsiella pneumoniae ssp pneumoniae Cefepime SUSCEPTIBILITY <=1: Sensitive Klebsiella pneumoniae ssp pneumoniae Ceftazidime SUSCEPTIBILITY <=1: Sensitive Klebsiella pneumoniae ssp pneumoniae Ceftriaxone SUSCEPTIBILITY <=1: Sensitive Klebsiella pneumoniae ssp pneumoniae Ertapenem SUSCEPTIBILITY <=0.5: Sensitive Klebsiella pneumoniae ssp pneumoniae Gentamicin SUSCEPTIBILITY <=1: Sensitive Klebsiella pneumoniae ssp pneumoniae Imipenem SUSCEPTIBILITY <=0.25: Sensitive Klebsiella pneumoniae ssp pneumoniae Levofloxacin SUSCEPTIBILITY <=0.12: Sensitive Klebsiella pneumoniae ssp pneumoniae Nitrofurantoin SUSCEPTIBILITY 32: Sensitive Klebsiella pneumoniae ssp pneumoniae Piperacillin-tazobactam SUSCEPTIBILITY <=4: Sensitive Klebsiella pneumoniae ssp pneumoniae Tobramycin SUSCEPTIBILITY <=1: Sensitive Klebsiella pneumoniae ssp pneumoniae Trimethoprim-sulfamethoxaz ole SUSCEPTIBILITY <=20: Sensitive Klebsiella pneumoniae ssp pneumoniae Extended-Spectrum Beta-Lactamase SUSCEPTIBILITY Neg: - Billie Almanzar PA-C LAB - MICROBIOLOGY ORDERABLES Performing Organization Address City/State/[facility] Co de Phone Number [address] [phone] * CLOSTRIDIUM DIFFICILE GD AG + TOXIN A+B (06/02/2017 11:11 AM CDT) C difficile Antigen Negative Negative [facility] C difficile Toxin Negative Negative [facility] Stool specimen (specimen) STOOL SPECIMEN / Unknown 06/02/2017 11:11 AM CDT 06/02/2017 11:20 AM CDT Narrative [facility] - 06/02/2017 8:06 PM CDT Specimen Type->Stool Resulting Lab: [facility] MICROBIOLOGY [address] [place] [address] PH: [phone] Asia Soni MANAGER OF APPLICATIONS DEVELOPMENT-PASSENGER CAR CLEANING SUPERVISOR LAB - MICR OBIOLOGY ORDERABLES [address] [phone] * ECHO FU OR LIMITED (06/02/2017 12:00 AM CDT) Anatomical Region Laterality Modality Other 06/02/2017 Asia Soni MANAGER OF APPLICATIONS DEVELOPMENT-PASSENGER CAR CLEANING SUPERVISOR ECHOCARDIO GRAPHY RADIANT * SEROTONIN RELEASE ASSAY PANEL (05/29/2017 10:00 AM CDT) [facility] [place] Low Dose Heparin 7 0 - 20 % [facility] (BEAKER) [place] High Dose Heparin 2 0 - 20 % [facility] (BEAKER) Interpretation [place] Comment S [facility] (BEAKER) Comment: [place] Result: NEGATIVE COMMENT: While these results argue against a diagnosis of heparin- induced-thrombocytopenia (HIT), they do not completely exclude the diagnosis. The result should be interpreted in conjunction with other HIT assays, and the context of all the clinical information including the platelet count, the type of heparin administered, the duration of heparin exposure, previous heparin exposure and any thrombotic history. The assay measures serotonin release from donor platelets in the presence of patient's serum and heparin. A positive result requires greater than or equal to 20% release in the presence of low dose (0.2 IU/mL) heparin and inhibition of serotonin release in the presence of high dose (100 IU/mL) heparin. This test was developed and its performance characteristics determined by [employer]. It has not been cleared or approved by the Food and Drug Administration. 05/29/2017 10:0 0 AM CDT 05/29/2017 10:03 AM CDT Narrative [facility] ([place]) - 06/02/2017 9:19 AM CDT Performed at: [address] [place] [address] [id number] Animal Handler: Ara Monte MD, Phone: [phone] Lacie Cummins APRNPASSENGER CAR CLEANING SUPERVISOR LAB - COMPUTER OPERATIONS SPECIALIST RY ORDERABLES Performing Organization Address City/[facility] Co de Phone Number [facility] ([facility]) * HEPARIN PLATELET INDUCED ANTIBODY (05/29/2017 10:00 AM CDT) Interpretation Heparin Platelet Antibody Negative Negative [facility] Comment: Heparin induced thrombocytopenia (HIT) is unlikely in the presence of a negative HIT antibody test result by EDUAR and low pretest probability for type II HIT (scoring system of [place]). It is suggested to verify positive HIT EDUAR antibody test results by HIT Antibody Serotonin Release Assay. HIT EDUAR Patient OD 0.202 <0.400 OD [facility] Blood specimen (specimen) BLOOD SPECIMEN / Unknown 05/29/2017 10:00 AM CDT 05/29/2017 10:03 AM CDT Lacie Cummins APRNBRIGHAM [facility] LAB - COMPUTER OPERATIONS SPECIALIST RY ORDERABLES [address] [phone] * (ABNORMAL) CALCIUM IONIZED WHOLE BLOOD (05/29/2017 5:19 AM CDT) Only the most recent of5 resultswithin the time period is included. Ionized Calcium Whole Blood 1.15 mmol/L [facility] Adjusted Ionized Calcium 1.14(L) 1.19 - 1.34 mmol/L [facility] pH Whole Blood 7.38 7.35 - 7.45 [facility] Blood specimen (specimen) BLOOD SPECIMEN / Unknown 05/29/2017 5:19 AM CDT 05/29/2017 5:28 AM CDT Zachary Hyde MD LAB - CHEMISTRY ORDE KVNG Performing Organization Address City/[facility]/ZIP Co de Phone Number [address] [phone] * (ABNORMAL) BLOOD GASES ART (05/28/2017 2:19 AM CDT) Only the most recent of7 resultswithin the time period is included. pH Arterial 7.35 7.35 - 7.45 [facility] pCO2 Arterial 34(L) 35 - 45 mmHg [facility] pO2 Arterial 160(H) 71 - 95 mmHg [facility] HCO3 Arterial 18.6(L) 22.0 - 26.0 mmol/L [facility] TCO2 Arterial 19.7(L) 25.0 - 29.0 mmol/L [facility] Base Excess Arterial -6.2(L) -2.0 - 2.0 mmol/L [facility] Hemoglobin Arterial 9.3(L) 12.0 - 15.5 g/dL [facility] Oxyhemoglobin Arterial 97.5 95.0 - 100.0 % [facility] Carboxyhemoglobin 0.3 0.0 - 3.0 % [facility] Methemoglobin 0.2 0.0 - 2.0 % [facility] FI O2 Arterial 27.0 % [facility] Blood specimen (specimen) BLOOD SPECIMEN / Unknown 05/28/2017 2:19 AM CDT 05/28/2017 2:22 AM CDT Zachary Hyde MD LAB - BLOOD GASES OR DERABLES Performing Organization Address City/[facility]/ZIP Co de Phone Number [address] [phone] * ECHO W DOPPLER AND COLOR FLOW (05/28/2017 12:00 AM CDT) Anatomical Region Laterality Modality Other 05/28/2017 Zachary Hyde MD ECHOCARDIOGRAPHY RAD IANT * CULTURE BLOOD (05/27/2017 10:28 PM CDT) Only the most recent of2 resultswithin the time period is included. Culture Blood No Growth at 5 days [facility] Blood specimen (specimen) (Blood Line - Arterial) 05/27/2017 10:28 PM CDT 05/27/2017 10:55 PM CDT Zachary Hyde MD LAB - MICROBIOLOGY O RDERABLES Performing Organization Address City/[facility]/ZIP [place] [address], [facility] [phone] * (ABNORMAL) SVO2 FOR RECALIBRATION (05/27/2017 10:23 PM CDT) Only the most recent of5 resultswithin the time period is included. [facility] SVO2 for Recalibration 60.9(L) 66.0 - 77.0 % [facility] Blood specimen (specimen) BLOOD SPECIMEN / Unknown 05/27/2017 10:23 PM CDT 05/27/2017 10:30 PM CDT Narrative [facility] - 05/27/2017 11:20 PM CDT Until pulmonary artery catheter discontinued Zachary Hyde MD LAB - CHEMISTRY ORDE RABLES Performing Organization Address [facility] [place] [address], [facility] [phone] * (ABNORMAL) BLOOD GASES MARIA ELENA (05/27/2017 4:58 PM CDT) Only the most recent of4 resultswithin the time period is included. pH Mixed Venous 7.24(L) 7.30 - 7.40 [facility] pCO2 Mixed Venous 56(H) 40 - 46 mmHg [facility] pO2 Mixed Venous 34(L) 35 - 42 mmHg [facility] HCO3 Mixed Venous 23.8 22.0 - 26.0 mmol/L [facility] TCO2 Mixed Venous 25.5 25.0 - 29.0 mmol/L [facility] Base Excess Venous -3.8(L) -2.0 - 2.0 mmol/L [facility] Hemoglobin Mixed Venous 9.9(L) 12.0 - 15.5 g/dL [facility] Oxyhemoglobin Mixed Venous 58.1(L) 66.0 - 77.0 % [facility] Carboxyhemoglobin Venous 0.3 0.0 - 3.0 % [facility] Methemoglobin 0.3 0.0 - 2.0 % [facility] FI O2 Mixed Venous 40.0 % [facility] Blood specimen (specimen) BLOOD SPECIMEN / Unknown 05/27/2017 4:58 PM CDT 05/27/2017 5:01 PM CDT Narrative [facility] - 05/27/2017 5:03 PM CDT [id number]->[id number] Billie Almanzar PA-C LAB - BLOOD GASES O RDERABLES Performing Organization Address City/[facility]/ZIP Co de Phone Number [address] [phone] * (ABNORMAL) PTT [facility] (05/27/2017 12:12 PM CDT) Only the most recent of3 resultswithin the time period is included. APTT 42.7(H) 23.0 - 38.4 Seconds [facility] Comment:Suggested therapeuti c range for full dose I.V. heparin therapy for venous thromboembolism is 66.0-91.0 seconds. Blood specimen (specimen) BLOOD SPECIMEN / Unknown 05/27/2017 12:12 PM CDT 05/27/2017 12:22 PM CDT Narrative [facility] - 05/27/2017 12:37 PM CDT Is patient on Heparin, Argatroban or Dabigatran?->Y Zachary Hyde MD LAB - COAGULATION OR DERABLES Performing Organization Address City/[facility]/ZIP Co de Phone Number [address] [phone] * (ABNORMAL) PT-INR [facility] (05/27/2017 12:12 PM CDT) Only the most recent of40 resultswithin the time period is included. PT 18.9(H) 12.1 - 14.8 Seconds [facility] INR 1.6 See Comment [facility] Comment: Suggested therapeutic range for low-intensity coumadin therapy for venous thromboembolism prophylaxis is an INR of 2.0-3.0. For high risk patients (Mitral Valve Prosthesis, Atrial Fibrillation, history of TIA/stroke), suggested prophylactic therapeutic range is an INR of 2.5-3.5. Blood specimen (specimen) BLOOD SPECIMEN / Unknown 05/27/2017 12:12 PM CDT 05/27/2017 12:22 PM CDT Narrative [facility] - 05/27/2017 12:36 PM CDT Is patient on Heparin, Argatroban or Dabigatran?->Y Zachary Hyde MD LAB - COAGULATION OR DERABLES Performing Organization Address City/State/[facility] Co de Phone Number [address] [phone] * (ABNORMAL) BLOOD GASES ART COMPLETE [facility] OR (05/27/2017 11:08 AM CDT) Only the most recent of3 resultswithin the time period is included. pH Arterial 7.39 7.35 - 7.45 [facility] pCO2 Arterial 37 35 - 45 mmHg [facility] pO2 Arterial 350(H) 71 - 95 mmHg [facility] HCO3 Arterial 21.4(L) 22.0 - 26.0 mmol/L [facility] TCO2 Arterial 22.5(L) 25.0 - 29.0 mmol/L [facility] Base Excess Arterial -3.3(L) -2.0 - 2.0 mmol/L [facility] Hemoglobin Arterial 8.7(L) 12.0 - 15.5 g/dL [facility] Oxyhemoglobin Arterial 97.4 95.0 - 100.0 % [facility] Carboxyhemoglobin 0.2 0.0 - 3.0 % [facility] Methemoglobin 0.8 0.0 - 2.0 % [facility] FI O2 Arterial 100.0 % [facility] Ionized Calcium Whole Blood 1.22 mmol/L [facility] Adjusted Ionized Calcium 1.21 1.19 - 1.34 mmol/L [facility] Sodium Whole Blood 139 135 - 145 mmol/L [facility] Potassium Whole Blood 3.9 3.5 - 5.5 mmol/L [facility] Chloride Whole Blood 110 101 - 111 mmol/L [facility] Glucose Whole Blood 146(H) 70 - 110 mg/dL [facility] Lactic Acid Whole Blood 2.5 0.5 - 3.4 mmol/L [facility] Blood specimen (specimen) 05/27/2017 11:08 AM CDT 05/27/2017 11:10 AM CDT Zachary Hyde MD LAB - BLOOD GASES OR DERABLES Performing Organization Address [facility]/ZIP Co de Phone Number [address] [phone] * FIBRINOGEN ACTIVITY (05/27/2017 11:08 AM CDT) Fibrinogen [place] 212 200 - 400 mg/dL [facility] Blood specimen (specimen) BLOOD SPECIMEN / Unknown 05/27/2017 11:08 AM CDT 05/27/2017 11:10 AM CDT Zachary Hyde MD LAB - COAGULATION OR DERABLES Performing Organization Address [facility] Co de Phone Number [address] [phone] * ACT - POCT (IP) [facility] (05/27/2017 11:05 AM CDT) Only the most recent of6 resultswithin the time period is included. Activated Clotting Time 113 sec [facility] Blood specimen (specimen) 05/27/2017 11:05 AM CDT Zachary Hyde MD LAB - POINT OF CARE ORDERABLES Performing Organization Address [facility] Co de Phone Number [facility] * CROSSMATCH RBC LEUKOREDUCED (05/27/2017 6:25 AM CDT) Unit RBC-WBCD [id number] transfused [facility] (BEAKER) Unit ABO A [facility] (BEAKER) Unit Rh POS [facility]LO[facility] (BEAKER) Unit Number [id number] [facility]LO[facility]ODU[facility] (BEAKER) Unit Status Transfused [facility] BLO OD BANK PRODUCTS (BEAKER) Unit RBC-WBCD [id number] returned [facility] BLOOD B[facility] PRODUCTS (BEAKER) Unit RBC-WBCD [id number] transfused [facility] BLOOD BANK PRODUCTS (BEAKER) Unit ABO A [facility] BLO[facility] B[facility] PRODUCTS (BEAKER) Unit Rh POS [facility] BLOOD B[facility] PRODUCTS (BEAKER) Unit Number [id number] [facility] BLOOD [facility]ANK PRODUCTS (BEAKER) Unit Status Transfused [facility] BLO OD BANK PRODUCTS (BEAKER) Unit RBC-WBCD [id number] returned [facility] BLOOD BANK PRODUCTS (BEAKER) 05/27/2017 6:25 AM CDT 05/27/2017 6:25 AM CDT Narrative [facility] BLOOD BANK PRODUCTS (BEAKER) - 05/27/2017 6:25 AM CDT For OR 10 # of Units->6 Zachary Hyde MD LAB - BLOOD BANK ORD ERABLES [facility]LO[facility] PRODUCTS (BEAKER) * TYPE + SCREEN PANEL (05/27/2017 6:01 AM CDT) Only the most recent of2 resultswithin the time period is included. Typem A POS [facility] BLOOD BANK LAB Antibody Screen NEG [facility]ANK LAB Blood specimen (specimen) 05/27/2017 6:01 AM CDT 05/27/2017 6:23 AM CDT Narrative [facility] BLOOD BANK LAB - 05/27/2017 7:03 AM CDT For OR 10 Zachary Hyde MD LAB - BLOOD BANK ORD ERABLES [facility] B[facility] LAB [address] * COMPLETE PFT W/WO BRONCHODILATOR (05/24/2017 10:39 AM CDT) Impressions [facility] RADIOLOGY - 05/24/2017 10:39 AM CDT [facility] DEPARTMENT OF PULMONARY, CRITICAL CARE, AND SLEEP MEDICINE PULMONARY FUNCTION TESTS Lacie Perez 05/25/2017 INTERPRETATION Please see technologist's comments mentioned above. SPIROMETRY: Forced vital capacity is normal. FEV1 is normal. FEV1/FVC ratio is normal. There is no significant response to bronchodilator administration. The inspection of the patient's flow-volume loops shows normal configuration of the inspiratory and expiratory limbs. LUNG VOLUMES: Lung volumes by body plethysmography are within normal limits. DLCO: Diffusing capacity adjusted for Hb and COHb is within normal limits. AIRWAY RESISTANCE: The airway resistance and the specific conductance are normal. ARTERIAL BLOOD GAS ANALYSIS: none IMPRESSION: 1. Normal Pulmonary Function Test 2. No significant response to bronchodilator therapy. 3. Adjusted diffusing capacity is normal. 4. There is no previous study available for comparison. Johny Bryan MD I have reviewed this study and agree with the interpretation by the Gold Buyer. Ghanshyam Lopez M.D. Intrusion Analyst of Internal Medicine Division of Pulmonary, Critical Care and Sleep Medicine [facility] Narrative Procedure Note Provider, MD Win - 02/10/2018 IMPRESSION [facility] DEPARTMENT OF PULMONARY, CRITICAL CARE, AND SLEEP MEDICINE PULMONARY FUNCTION TESTS Lacie Perez 05/25/2017 INTERPRETATION Please see technologist's comments mentioned above. SPIROMETRY: Forced vital capacity is normal. FEV1 is normal. FEV1/FVC ratio is normal. There is no significant response to bronchodilator administration. The inspection of the patient's flow-volume loops shows normalconfiguration of the inspiratory and expiratory limbs. LUNG VOLUMES: Lung volumes by body plethysmography are within normallimits. DLCO: Diffusing capacity adjusted for Hb and COHb is within normallimits. AIRWAY RESISTANCE: The airway resistance and the specific conductance arenormal. ARTERIAL BLOOD GAS ANALYSIS: none IMPRESSION: 1. Normal Pulmonary Function Test 2. No significant response to bronchodilator therapy. 3. Adjusted diffusing capacity is normal. 4. There is no previous study available for comparison. Johny Bryan MD I have reviewed this study and agree with the interpretation by thePulmonary Fellow. Ghanshyam Lopez M.D. Intrusion Analyst of Internal Medicine Division of Pulmonary, Critical Care and Sleep Medicine [facility] Zachary Hyde MD RESPIRATORY THERAPY ORDERABLES [facility] * VAS CAROTID DUPLEX BILATERAL (05/24/2017 10:37 AM CDT) Anatomical Region Laterality Modality Other Zachary Hyde MD VASCULAR LAB ORDERAB LES * CT CHEST WO CONTRAST (05/24/2017 9:56 AM CDT) Anatomical Region Laterality Modality Chest Other Impressions 05/24/2017 11:32 AM CDT IMPRESSION: No significant atherosclerotic calcifications detected in the aortic root or ascending aorta. Scattered atherosclerotic calcifications involving the aortic arch, descending thoracic aorta and coronary arteries. Dictated by Keily Finney MD (manager residential). I, Dr. RICARDO YUEN M.D. have personally reviewed and interpreted this examination/study. This report was electronically signed by RICARDO YUEN M.D. on 05/24/2017 11:32 AM . Narrative 05/24/2017 11:32 AM CDT EXAMINATION: Computed tomography of the chest without contrast HISTORY: 72-year-old female with coronary artery disease, preoperative evaluation for CABG. TECHNIQUE: Computed tomography of the chest was performed without intravenous contrast according to standard protocol. FINDINGS: No prior study is available for comparison. There is a left-sided three-vessel aortic arch. The aorta and main pulmonary arteries are normal in course and caliber. The ascending aorta is normal in size measuring approximately 3.3 cm in axial diameter. Scattered atherosclerotic calcifications involve the aortic arch, descending thoracic aorta and coronary arteries. No significant atherosclerotic calcifications within the ascending aorta. Minimal mitral annular calcifications are seen. The lungs are clear of pneumonic consolidation, suspicious pulmonary nodules, pleural effusion, or pneumothorax. Small calcified granuloma is seen in the left lower lobe. The heart size is normal without pericardial effusion. Scattered subcentimeter mediastinal lymph nodes are identified. The visualized upper abdomen appears normal. Scattered splenic microcalcifications are seen, likely the sequela of prior granulomatous infection. Bone windows demonstrate no suspicious lytic or blastic lesions. Scattered surgical clips are seen in the right axillary region. Right breast implant is noted. Procedure Note Ricardo Yuen MD - 12/02/2017 EXAMINATION: Computed tomography of the chest without contrast HISTORY: 72-year-old female with coronary artery disease, preoperativeevaluation for CABG. TECHNIQUE: Computed tomography of the chest was performed withoutintravenous contrast according to standard protocol. FINDINGS: No prior study is available for comparison. There is a left-sided three-vessel aortic arch. The aorta and mainpulmonary arteries are normal in course and caliber. The ascending aortais normal in size measuring approximately 3.3 cm in axial diameter.Scattered atherosclerotic calcifications involve the aortic arch, descending thoracic aorta and coronary arteries.No significant atherosclerotic calcifications within the ascending aorta.Minimal mitral annular calcifications are seen. The lungs are clear of pneumonic consolidation, suspicious pulmonarynodules, pleural effusion, or pneumothorax. Small calcified granuloma isseen in the left lower lobe. The heart size is normal without pericardial effusion. Scatteredsubcentimeter mediastinal lymph nodes are identified. The visualized upper abdomen appears normal. Scattered splenicmicrocalcifications are seen, likely the sequela of prior granulomatousinfection. Bone windows demonstrate no suspicious lytic or blastic lesions. Scatteredsurgical clips are seen in the right axillary region. Right breast implantis noted. IMPRESSION IMPRESSION: No significant atherosclerotic calcifications detected in the aortic rootor ascending aorta. Scattered atherosclerotic calcifications involving theaortic arch, descending thoracic aorta and coronary arteries. Dictated by Keily Finney MD (manager residential). I, Dr. RIACRDO YUEN M.D. have personally reviewed and interpreted thisexamination/study. This report was electronically signed by RICARDO YUEN M.D. on05/24/2017 11:32 AM . Zachary Hyde MD CT ORDERABLES * HEMOGLOBIN A1C (05/18/2017 3:48 PM CDT) Only the most recent of3 resultswithin the time period is included. Hemoglobin A1c 6.0 4.4 - 6.3 % [facility] Estimated Average Glucose 126 mg/dL [facility] Comment: HbA1c Interpretation: Treatment target values recommended by ADA and other clinical organizations should be used to evaluate metabolic control in patients. Treatment Target Values: Normal : < 5.7% Pre-diabetes: 5.7-6.4% Diabetes: Equal to or greater than 6.5% Reference: [place] [employer] Standards of Care in Diabetes -2014 In patients 70 years and older consider HbA1c target range of 7.0-7.5% Reference: Diabetes Mellitus in Older People: Position Statement on behalf of the International Association of Gerontology and Geriatrics (IAGG), the Diabetes Working Alliance Party for Older People (EDWPOP), and the International Task Force of Experts in Diabetes. Gorge Sullivan et al. J [place] [employer]. 2012 Test results diagnostic of diabetes should be repeated for confirmation. The Tosoh G8 assay for the measurement of HbA1c is a National Glycohemoglobin Standardization Program (NGSP)certified method. Results for patients with HbE disease should be interpreted with caution as this hemoglobinopathy has been shown to interfere with the Tosoh G8 assay. Blood specimen (specimen) BLOOD SPECIMEN / Unknown 05/18/2017 3:48 PM CDT 05/18/2017 4:03 PM CDT Zachary Hyde MD LAB - CHEMISTRY [facility] Organization Address City/State/ZIP Co de Phone Number [address] [phone] * (ABNORMAL) COMPREHENSIVE METABOLIC PANEL (05/18/2017 3:48 PM CDT) BUN 13 7 - 26 mg/dL [facility] Creatinine 0.7 0.6 - 1.2 mg/dL [facility] Sodium 138 136 - 145 mmol/L [facility] Potassium 4.1 3.5 - 4.5 mmol/L [facility] Chloride 103 98 - 107 mmol/L [facility] CO2 29 22 - 29 mmol/L [facility] Glucose 80 70 - 115 mg/dL [facility] Calcium 9.2 8.4 - 10.2 mg/dL [facility] Protein Total 7.5 6.0 - 8.3 g/dL [facility] Albumin 3.4 3.4 - 5.0 g/dL [facility] Bilirubin Total 0.4 0.2 - 1.2 mg/dL [facility] Alkaline Phosphatase 141 40 - 150 Units/L [facility] ALT 46 0 - 55 Units/L [facility] AST 33 5 - 34 Units/L [facility] Anion Gap 10 8 - 18 [facility] BUN/Creatinine Ratio 19 7 - 23 [facility] Osmolality Calculated 285 270 - 300 mOsm/kg [facility] Albumin/Globulin Ratio 0.8(L) 1.1 - 2.3 [facility] eGFR >60 >60 mL/min/1.7 3 m2 [facility] Blood specimen (specimen) BLOOD SPECIMEN / Unknown 05/18/2017 3:48 PM CDT 05/18/2017 4:03 PM CDT Zachary Hyde MD LAB - CHEMISTRY MICK CALDER[facility] [address] [place] [address] * XR CHEST 2VW (05/18/2017 12:58 PM CDT) Anatomical Region Laterality Modality Chest Other Impressions 05/20/2017 12:14 PM CDT Impression: No acute pulmonary process. Dictated by Shantell Cabrera MD (manager residential). Dr. ULISES Charles MD have personally reviewed and interpreted this examination/study. This report was electronically signed by ULISES SANDERSON MD on 05/20/2017 12:14 PM . Narrative 05/20/2017 12:14 PM CDT Exam: XR CHEST PA AND LATERAL Date: 05/18/2017 12:58 PM History: preop evaluation for cardiac surgery COMPARISON: None. Findings: The lungs are clear. There is no consolidation, pleural effusion, or pneumothorax. The cardiomediastinal silhouette is normal. Right axillary surgical clips are noted. Procedure Note Ulises Sanderson MD - 12/02/2017 Exam: XR CHEST PA AND LATERAL Date: 05/18/2017 12:58 PM History: preop evaluation for cardiac surgery COMPARISON: None. Findings: The lungs are clear. There is no consolidation, pleural effusion, orpneumothorax. The cardiomediastinal silhouette is normal. Right axillarysurgical clips are noted. IMPRESSION Impression: No acute pulmonary process. Dictated by Shantell Cabrera MD (manager residential). Dr. ULISES Charles MD have personally reviewed and interpreted thisexamination/study. This report was electronically signed by ULISES SANDERSON MD on 05/20/201712:14 PM . Zachary Hyde MD DIAGNOSTIC IMAGING O RDERABLES * ECHO JUANJO TRANSESOPHAGEAL (05/18/2017 12:00 AM CDT) Anatomical Region Laterality Modality Other 05/18/2017 Zachary Hyde MD ECHOCARDIOGRAPHY RAD IANT * PROC MOBILE CV TELEMETRY (04/08/2017 8:31 AM CDT) Narrative [facility] - 04/08/2017 8:31 AM CDT Lacie Perez underwent cardiac monitoring with a 14 day mobile telemetry. Results are as follows: Quality of Tracings: Fair, some baseline artifact present. Rhythm: Sinus. Rates: 49-119 with a mean of 70 bpm. Ectopy: None. Symptoms: None reported. Please feel free to contact me with any questions, thank you. Procedure Note ProviderWin MD - 02/10/2018 Lacie Perez underwent cardiac monitoring with a 14 day mobile telemetry.Results are as follows: Quality of Tracings: Fair, some baseline artifact present. Rhythm: Sinus. Rates: 49-119 with a mean of 70 bpm. Ectopy: None. Symptoms: None reported. Please feel free to contact me with any questions, thank you. Giacomo Najera CD PROCEDURE/MINOR SURG ICAL ORDERABLES [facility] * CCL CATH RT LT HEART ARTERIES VENTRICLES (04/04/2017 10:07 AM CDT) Anatomical Region Laterality Modality X-Ray Angiograph y Narrative 04/05/2017 8:11 AM CDT [facility] Cardiac Catheterization Procedure Note Patient: Lacie Perez Age: 72 y.o. Date of : 1945 Date of Admission: 04/04/2017 Procedure Date: 04/04/17 FELLOW / LAND SURVEYING MANAGER: Dr. Princess Hickey ATTENDING PHYSICIAN: Dr. Nathen Christian PREVIOUS STRESS STUDIES WITHIN 6 MONTHS: NA DIAGNOSTIC APPROPRIATENESS CRITERIA: Right heart cath: 98 and LHC:5 HISTORY: Patient is a 72 y.o. female with PMH of A-fib (s/p RFA 01/2010), RVOT PVC ablation in 04/19 HTN, asthma, DM who is c/o exertional SOB and palpitation referred to cardiac cath for worsening symptoms. Right heart cath for moderate MR, RV systolic pressure 75 mmHg ACCESS SITE(S): right femoral artery and right femoral vein PROCEDURAL OVERVIEW: After obtaining informed consent and positioning the patient on the catheterization table, a timeout was performed to confirm the patient s name, date of , and procedure. Sedation was initiated and the patient was prepped and draped using standard sterile technique. Lidocaine was used for local anesthesia over the access site, after which the vessel was accessed and a 6Fr sheath was placed using the modified Seldinger technique. Access was uncomplicated. At the conclusion of the procedure, hemostasis was achieved using manual compression after removal of all catheters, wires, and sheaths. SEDATION: Moderate sedation on this adult patient was ordered by me, administered intravenously in my presence, and monitored by the procedure nurse as an independent trained observer who was present throughout the procedure. The following parameters were monitored: oxygen saturation, heart rate, blood pressure, and response to care. Intra-service sedation start time was 09:45 am and end time was 10:07 am during which I was present. Total physician intra-service sedation time was 22 minutes. For details on pre-moderate sedation and post-moderate sedation patient evaluation, please review the evaluation forms in [facility]. For details on monitored clinical parameters during the intra-service sedation time, please review the procedure nurse documentation in [facility]. COMPLICATIONS: none HEMODYNAMIC FINDINGS: LVEDP: 10 mmHg AO: 120/65/86 mmHg Right heart cath: Measurements: RA: 7 mmHg RV: 52/9 mmHg PA: 52/18/31 mmHg PCWP: 12 mmHg V-wave: 40 mmHg Saturations: RA: 74.7% PA: 71.9% AO: 94.1% Calculations: CO: 5.78 L/min CI: 3.28 L/min/m2 SVR: 1176 Dynes sec cm-5. ANGIOGRAPHY: i. Left main: No angiographic finding of diease. It bifurcates in to LAD and Cx. ii. LAD: 30% stenosis in mid segment. It gives off small diagonals calibers without evidence of disease. iii. LCx: Non-dominant vessel with no angiographic finding of disease. It gives of OM1 with no evidence of disease. iv. RCA: Dominant vessel with 30% stenosis in mid segment. It gives off rPDA and rPL with no angiographic finding of disease. DOMINANCE: Right DIAGNOSTIC INTERPRETATIONS: 1. Nonobstructive CAD 2. Elevated pulmonary artery pressure and large V-wave pressure which is consistent with Mitral valve insufficiency. RECOMMENDATIONS AFTER DIAGNOSTIC CATHETERIZATION: 1. Medical management of nonobstructive CAD. 2. Aggressive modification of atherosclerotic risk factors. 3. Follow up with her Fur Scraper for further evaluation and management of mitral valve disease. Princess Hickey MD Batch Weigher 04/04/2017 I was present for the entirety of the described procedure. Nathen Christian MD 04/05/2017/8:15 AM Procedure Note Nathen Christian MD - 02/10/2018 [facility] Cardiac Catheterization Procedure Note Patient: Lacie Perez Age: 72 y.o. Date of : 1945 Date of Admission: 04/04/2017 Procedure Date: 04/04/17 FELLOW / LAND SURVEYING MANAGER: Dr. Princess Hickey ATTENDING PHYSICIAN: Dr. Nathen Christian PREVIOUS STRESS STUDIES WITHIN 6 MONTHS: NA DIAGNOSTIC APPROPRIATENESS CRITERIA: Right heart cath: 98 and LHC:5 HISTORY: Patient is a 72 y.o. female with PMH of A-fib (s/p RFA 01/2010),RVOT PVC ablation in 04/19 HTN, asthma, DM who is c/o exertional SOB andpalpitation referred to cardiac cath for worsening symptoms. Right heartcath for moderate MR, RV systolic pressure 75 mmHg ACCESS SITE(S): right femoral artery and right femoral vein PROCEDURAL OVERVIEW: After obtaining informed consent and positioning the patient on thecatheterization table, a timeout was performed to confirm the patient s name, date of , and procedure. Sedation was initiated and thepatient was prepped and draped using standard sterile technique. Lidocaine was used for local anesthesia over theaccess site, after which the vessel was accessed and a 6Fr sheath wasplaced using the modified Seldinger technique. Access was uncomplicated.At the conclusion of the procedure, hemostasis was achieved using manual compression after removal of allcatheters, wires, and sheaths. SEDATION: Moderate sedation on this adult patient was ordered by me, administeredintravenously in my presence, and monitored by the procedure nurse as anindependent trained observer who was present throughout the procedure. Thefollowing parameters were monitored: oxygen saturation, heart rate, blood pressure, and response tocare. Intra-service sedation start time was 09:45 am and end time was10:07 am during which I was present. Total physician intra-servicesedation time was 22 minutes. For details on pre-moderate sedation and post-moderate sedation patient evaluation,please review the evaluation forms in [facility]. For details on monitoredclinical parameters during the intra-service sedation time, please reviewthe procedure nurse documentation in [facility]. COMPLICATIONS: none HEMODYNAMIC FINDINGS: LVEDP: 10 mmHg AO: 120/65/86 mmHg Right heart cath: Measurements: RA: 7 mmHg RV: 52/9 mmHg PA: 52/18/31 mmHg PCWP: 12 mmHg V-wave: 40 mmHg Saturations: RA: 74.7% PA: 71.9% AO: 94.1% Calculations: CO: 5.78 L/min CI: 3.28 L/min/m2 SVR: 1176 Dynes sec cm-5. ANGIOGRAPHY: i. Left main: No angiographic finding of diease. It bifurcates in toLAD and Cx. ii. LAD: 30% stenosis in mid segment. It gives off small diagonalscalibers without evidence of disease. iii. LCx: Non-dominant vessel with no angiographic finding of disease.It gives of OM1 with no evidence of disease. iv. RCA: Dominant vessel with 30% stenosis in mid segment. It givesoff rPDA and rPL with no angiographic finding of disease. DOMINANCE: Right DIAGNOSTIC INTERPRETATIONS: 1. Nonobstructive CAD 2. Elevated pulmonary artery pressure and large V-wave pressure which isconsistent with Mitral valve insufficiency. RECOMMENDATIONS AFTER DIAGNOSTIC CATHETERIZATION: 1. Medical management of nonobstructive CAD. 2. Aggressive modification of atherosclerotic risk factors. 3. Follow up with her Fur Scraper for further evaluation and managementof mitral valve disease. Princess Hickey MD Batch Weigher 04/04/2017 I was present for the entirety of the described procedure. Nathen Christian MD 04/05/2017/8:15 AM Margoth Forman APRN-PASSENGER CAR CLEANING SUPERVISOR CARDIAC CAT H LAB RADIANT * TSH HI LOW REFLEX FREE T4 (03/18/2017 4:08 PM CDT) TSH 1.12 0.40 - 4.50 mIU/L [facility] Comment: Test Performed at: [facility] [id number] [place] [address] ARA TURPIN DO,MPH 03/18/2017 4:08 PM CDT 03/18/2017 4:08 PM CDT Margoth Forman MANAGER OF APPLICATIONS DEVELOPMENT-PASSENGER CAR CLEANING SUPERVISOR LAB - CHEMI STRY ORDERABLES [facility] * LAB HISTORICAL RESULTS-ONBASE (03/11/2017) 03/11/2017 Historical Provider LAB - CHEMISTRY O RDERABLES Performing Organization Address [facility] Co de Phone Number [address] * NM MYOCARD PERF REST STRESS (03/03/2016 12:13 PM CDT) Anatomical Region Laterality Modality Chest Other Impressions 03/03/2016 12:20 PM CDT Impression: 1. No evidence of myocardial infarction or stress-induced ischemia. 2. Normal left ventricular function with a calculated left ventricular ejection fraction of 85%. This report was approved by Duncan Galeano M.D on 03/03/2016 12:05 PM . I, Dr. LONNY BENNETT D.O. have personally reviewed and interpreted this examination/study. This report was electronically signed by LONNY BENNETT D.O. on 03/03/2016 12:20 PM . Narrative 03/03/2016 12:20 PM CDT Rest and Pharmacologic stress SPECT myocardial imaging with gating- 1 day protocol Referred by: Dr. Jessica Smith MD History: 70-year-old female with shortness of breath on exertion. Past medical history significant for diabetes, hypertension and A. fib. Procedure: The rest intravenous injection of 10.3 mCi of Tc-99m Myoview was administered IV in the left antecubital fossa. Myocardial perfusion imaging was performed 30 minutes post- injection. At the conclusion of the rest imaging, pharmacologic stress was performed with intravenous injection of 0.4 mg Regadenoson (LexiScan) under physician supervision. The patient experienced no chest pain. After approximately 10 seconds, the patient was injected with 32.1 mCi of Tc-99m Myoview IV in the left antecubital fossa. Gated SPECT myocardial perfusion imaging was performed 30 minutes post-injection. The heart rate at rest was 64 at baseline and increased to 72 beats per minute during the vasodilator infusion. The BP was 142/59 at rest and 142/59 after the stress procedure. A separate ECG report will be read by Cardiology. Findings: The image quality is technically excellent without significant motion or adjacent bowel activity. In the stress and rest SPECT images, the left ventricle is normal in size. The stress SPECT images show a normal pattern of myocardial perfusion. There is no significant change in the perfusion pattern at rest. Gated SPECT images show normal myocardial thickening and normal wall motion. The calculated left ventricular ejection fraction is 85%. Procedure Note Lonny Bennett, DO - 12/03/2017 Rest and Pharmacologic stress SPECT myocardial imaging with gating- 1 dayprotocol Referred by: Dr. Jessica Smith MD History: 70-year-old female with shortness of breath on exertion. Pastmedical history significant for diabetes, hypertension and A. fib. Procedure: The rest intravenous injection of 10.3 mCi of Tc-99m Myoviewwas administered IV in the left antecubital fossa. Myocardial perfusionimaging was performed 30 minutes post- injection. At the conclusion of therest imaging, pharmacologic stress was performed with intravenous injection of 0.4 mg Regadenoson (LexiScan)under physician supervision. The patient experienced no chest pain. Afterapproximately 10 seconds, the patient was injected with 32.1 mCi of Tc-99mMyoview IV in the left antecubital fossa. Gated SPECT myocardial perfusion imaging was minutes post-injection. The heart rate at rest was 64 at baseline and increased to 72 beats perminute during the vasodilator infusion. The BP was 142/59 at rest [id number] after the stress procedure. A separate ECG report will be read byCardiology. Findings: The image quality is technically excellent without significant motion oradjacent bowel activity. In the stress and rest SPECT images, the leftventricle is normal in size. The stress SPECT images show a normal patternof myocardial perfusion. There is no significant change in the perfusion pattern at rest. Gated SPECT images show normal myocardial thickening and normal wallmotion. The calculated left ventricular ejection fraction is 85%. IMPRESSION Impression: 1. No evidence of myocardial infarction or stress-induced ischemia. 2. Normal left ventricular function with a calculated left ventricularejection fraction of 85%. This report was approved by Duncan Galeano M.D on 03/03/2016 12:05 PM . I, Dr. LONNY BENNETT D.O. have personally reviewed and interpreted thisexamination/study. This report was electronically signed by LONNY BENNETT D.O. on 03/03/201612:20 PM . Historical Provider MD DANIELLE ORDERABLES * [place] SCREEN IFA+RHEUMATOID ARTHRITIS PANEL (12/08/2015 10:48 AM CDT) Pathologist [facility] [place] Screen NEGATIVE NEGATIVE [facility] Comment: Test Performed at: [facility] [id number] [place] [address] ARA TURPIN DO,MPH Rheumatoid Factor 9 <14 IU/mL [facility]) Cyclic Citrullinated Peptide Antibody <16 UNITS [facility] Comment: Reference Range Negative: <20 Weak Positive: 20-39 Moderate Positive: 40-59 Strong Positive: >59 Interpretation [facility] Comment: There is no serologic evidence for rheumatoid arthritis. The RF and CCP tests each have a sensitivity for established rheumatoid arthritis of approximately 65-70%. 12/08/2015 10:4 8 AM CDT 12/08/2015 10:50 AM CDT Lasha Mcallister MD LAB - SEROLOGY [facility] * COMPREHENSIVE METABOLIC PNL PLASMA (12/08/2015 10:48 AM CDT) Pathologist [facility] Glucose 98 65 - 99 mg/dL [facility] Comment: Fasting reference interval BUN 16 7 - 25 mg/dL [facility] Creatinine 0.66 0.60 - 0.93 mg/dL [facility] Comment: For patients >49 years of age, the reference limit for Creatinine is approximately 13% higher for people identified as -[place]. eGFR non- 89 > OR = 60 mL/min/1 .73m2 [facility] [facility] eGFR 103 > OR = 60 mL/min/1 .73m2 [facility] BUN/Creatinine Ratio NOT APPLICABLE 6 - 22 (calc) [facility] Sodium 139 135 - 146 mmol/L [facility] Potassium 3.8 3.4 - 4.8 mmol/L [facility] Chloride 103 98 - 110 mmol/L [facility] CO2 23 19 - 30 mmol/L [facility] Calcium 9.3 8.6 - 10.4 mg/dL [facility] Protein Total 7.4 6.4 - 8.4 g/dL [facility] Albumin 4.2 3.6 - 5.1 g/dL [facility] Globulin 3.2 2.2 - 4.0 g/dL (calc) [facility] Albumin/Globulin Ratio 1.3 0.9 - 2.3 (calc) [facility] Bilirubin Total 0.5 0.2 - 1.2 mg/dL [facility] Alkaline Phosphatase 114 33 - 130 U/L [facility] AST 21 10 - 35 U/L [facility] ALT 29 6 - 29 U/L [facility] Comment: Test Performed at: [facility] [id number] [place] [id number] ARA TURPIN DO,MPH 12/08/2015 10:4 8 AM CDT 12/08/2015 10:50 AM CDT Lasha Mcallister MD LAB - CHEMISTRY ORD ERABLES [facility] * METHYLMALONIC ACID + HOMOCYSTEINE (12/08/2015 10:48 AM CDT) Methylmalonic Acid 138 87 - 318 nmol/L [facility] Comment: Test Performed at: [facility] [address] [place] [address] EMMA PHILIP MD PHD Homocysteine 8.2 <10.4 umol/L [facility] Comment: Homocysteine is increased by functional deficiency of folate or vitamin B12. Testing for methylmalonic acid differentiates between these deficiencies. Other causes of increased homocysteine include renal failure, folate antagonists such as methotrexate and phenytoin, and exposure to nitrous oxide. 12/08/2015 10:4 8 AM CDT 12/08/2015 10:50 AM CDT Lasha Mcallister MD LAB - CHEMISTRY ORD ERABLES Performing Organization Address [facility] Co de Phone Number [facility] * URIC ACID BLOOD (12/08/2015 10:48 AM CDT) Uric acid 3.6 2.5 - 7.0 mg/dL [facility] Comment: Therapeutic target for gout patients: <6.0 mg/dL Test Performed at: [facility] [address] [facility] [address] ARA TURPIN DO,MPH 12/08/2015 10:4 8 AM CDT 12/08/2015 10:50 AM CDT Lasha Mcallister MD LAB - CHEMISTRY ORD ERABLES Performing Organization Address [facility] Co de Phone Number [facility] * VITAMIN B12 (12/08/2015 10:48 AM CDT) Vitamin B12 514 200 - 1,100 pg/mL [facility] Comment: Test Performed at: [facility] [address] [address] [email or web address] [address] ARA TURPIN DO,MPH 12/08/2015 10:4 8 AM CDT 12/08/2015 10:50 AM CDT Lasha Mcallister MD LAB - CHEMISTRY ORD ERABLES Performing Organization Address [facility] Co de Phone Number [facility] * LIPID PROFILE (12/08/2015 10:48 AM CDT) Only the most recent of2 resultswithin the time period is included. Cholesterol Total 156 125 - 200 mg/dL [facility] Comment: Test Performed at: [facility] [address] [facility] [place] [place] [address] ARA TURPIN DO,MPH HDL 95 > OR = 46 mg/dL [facility] Triglycerides 76 <150 mg/dL [facility] LDL Calculated 46 <130 mg/dL (calc) [facility] Comment: Desirable range <100 mg/dL for patients with CHD or diabetes and <70 mg/dL for diabetic patients with known heart disease. Chol/HDL Ratio 1.6 < OR = 5.0 (calc) [facility] Non HDL Cholesterol 61 mg/dL (calc) [facility] Comment: Target for non-HDL cholesterol is 30 mg/dL higher than LDL cholesterol target. 12/08/2015 10:4 8 AM CDT 12/08/2015 10:50 AM CDT Lasha Mcallister MD LAB - CHEMISTRY ORD ERABLES [facility] * EP ABLATION SVT (04/22/2015 12:07 PM CDT) Anatomical Region Laterality Modality Other Rosaura Grigsby MD ELECTROPHYS RADIANT * EVENT MONITOR (09/30/2014 8:07 AM [employer]ORTS [employer]ICINE MASSEUR) Narrative [facility] - 09/30/2014 8:07 AM SPORTS MEDICINE MASSEUR Lacie Perez underwent cardiac monitoring with a 30 day event monitor. Results are as follows: Quality of Tracings: Good. Rhythm: Sinus. Ectopy: Occasional unifocal PVC's and rare ventricular couplets. Symptoms: Short of breath, which correlated with sinus rhythm with PVC, rate 85 bpm and with sinus bradycardia, rate 51 bpm. Heart racing, which correlated with sinus rhythm with PVC, rate 60 bpm. Short of breath, dizzy, which correlated with sinus rhythm, rate 66 bpm. Lightheaded, heart racing which correlated with sinus rhythm, rate 80 bpm. Skipped beat, which correlated with sinus rhythm with PVC, rate 64-71 bpm. Please feel free to contact me with any questions, thank you. Procedure Note Provider, MD Win - 02/10/2018 Lacie Perez underwent cardiac monitoring with a 30 day event monitor.Results are as follows: Quality of Tracings: Good. Rhythm: Sinus. Ectopy: Occasional unifocal PVC's and rare ventricular couplets. Symptoms: Short of breath, which correlated with sinus rhythm with PVC,rate 85 bpm and with sinus bradycardia, rate 51 bpm. Heart racing, whichcorrelated with sinus rhythm with PVC, rate 60 bpm. Short of breath,dizzy, which correlated with sinus rhythm, rate 66 bpm. Lightheaded, heart racing which correlated withsinus rhythm, rate 80 bpm. Skipped beat, which correlated with sinusrhythm with PVC, rate 64- 71 bpm. Please feel free to contact me with any questions, thank you. Giacomo Najera CD CARDIAC SERVICES ORD ERABLES Performing Organization Address [facility] Co de Phone Number [facility] * CREATININE BLOOD (09/05/1998 12:00 AM [employer]ORTS MEDICINE MASSEUR) Creatinine 0.78 mg/dL [facility] 09/05/1998 Narrative [facility] - 09/05/1998 12:00 AM [employer] MEDICINE MASSEUR This external order was created through the Results Console. Historical Provider LAB - CHEMISTRY O BRADY Performing Organization Address [facility] Co de Phone Number [facility] * CALCIUM BLOOD (09/05/1998 12:00 AM [employer]IC[employer] MASSEUR) Calcium 9.8 mg/dL [facility] Blood specimen (specimen) BLOOD SPECIMEN / Unknown 09/05/1998 Narrative [facility] - 09/05/1998 12:00 AM [employer]ICINE MASSEUR This external order was created through the Results Console. Historical Provider LAB - CHEMISTRY O BRADY Performing Organization Address [facility] Co de Phone Number [facility] * BUN (09/05/1998 12:00 AM [employer]IC[employer]SEUR) BUN 12 mg/dL [facility] Blood specimen (specimen) BLOOD SPECIMEN / Unknown 09/05/1998 Narrative [facility] - 09/05/1998 12:00 AM [employer]ICINE MASSEUR This external order was created through the Results Console. Historical Provider LAB - CHEMISTRY O RDERABLES [facility] Care Teams Coat Repair Inspector Relationship Specialty Start Date End Date Lasha Mcallister MD [facility] [address] [place] [address] PCP - General 07/01/14
--- OUTSIDE RECORDS SUMMARY | 2024-10-22 01:34 | XMS_ITS | Encounter Summary ---
Author Organization [facility] Address [address] [place] [address] Care Team Providers Care Processing Spec Name Role Phone Lasha Mcallister MD Primary Care Provider [phone] Josesito Torrez MD Unavailable [phone] Carolyn Denson ANP-BC Unavailable Unavailab Nathan Sheriff MD Unavailable [phone] Encounter Details Date Type Department Care Team (Late st Contact Info) Description 08/03/2017 Abstract [facility] [address] [place] [address] , Monica Barbosa MD Social History Tobacco Use Types Packs/Day Years Used Date Smoking Tobacco: Never Assessed Comments Unknown Sex and Gender Information Value Date Recorded Sex Assigned at Female 12/17/2022 10:53 PM CDT Legal Sex Female 8:03 PM CDT Gender Identity Female 12/17/2022 10:53 PM CDT Sexual Orientation Straight 12/17/2022 10 :53 PM CDT documented as of this encounter Plan of Treatment Upcoming Encounters Date Type Department Care Team (Late Contact Info) Description 10/29/2024 9:45 AM [facility]PT[facility]RIST [facility] [address] [place] [phone] Josesito Torrez MD [facility]. [address] [phone] 01/21/2025 11:10 AM CDT Allied Health/Nurse Visit [facility] [address] [place] [address] Josesito Torrez MD [facility]. [facility] [address] [place], [place] [id number] documented as of this encounter Visit Diagnoses Not on filedocumented in this encounter Additional Health Concerns Infection Onset Date Last Indicated Resolved Time COVID-19 Rule Out 05/22/2021 05/22/2021 05/23/2021 10:58 AM CDT COVID-19 Rule Out 12/17/2022 12/18/2022 12/18/2022 1:21 AM CDT Norovirus 12/19/2022 12/20/2022 01/17/2023 12:3 2 AM CDT COVID-19 Rule Out 05/30/2024 05/30/2024 05/30/2024 10:20 AM CDT C. difficile 07/12/2024 07/12/2024 documented as of this encounter Care Teams Processing Spec Relationship Specialty Start Date End Date Lasha Mcallister MD [address] [facility] [address] [place] [address] PCP - General INTERNAL MEDICINE 07/06/17 Carolyn Denson ANP- PCP - [facility] - MSSP Attributed Provider 09/05/15 05/23/19 Josseito Torrez MD [facility]. [facility] [address] [place], [place] [phone] [facility] [employer] CARDIOVASCULAR DISEASE 07/06/17 09/21/22 Nathan Tyler MD [address] [address] Referring Physician 09/22/22 documented as of this encounter
--- OUTSIDE RECORDS SUMMARY | 2024-10-22 01:34 | XMS_ITS | Clinical Summary ---
Author Organization [facility] Address [address] [place] [address] Care Team Providers Care Slurry Control Tender Name Role Phone Lasha Mcallister MD Primary Care Provider [phone] Source Comments [facility],non-owned Affiliates and Associated Physician Practices is amultiple site organization consisting of ambulatory clinics and hospital sitesin [place], [place], [place] and [place]. This disclosure is being madepursuant to the Care Everywhere program and may not contain all information available regarding this patient. 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 Major [...] osteoporosis wit hout current pathological fracture 08/27/2014 Family History Medical History Relation Name Comments Asthma Brother CVA Brother Diabetes Brother Heart Disease Brother Hypertension Brother Asthma Daughter Depression Daughter Arthritis Father Asthma Father Elevated Lipids Father Hearing Loss Father Heart Disease Father Hypertension Father Arthritis Maternal Aunt Cancer Maternal Aunt Diabetes Maternal Aunt Heart Disease Maternal Aunt Alcohol abuse Maternal Grandfather Diabetes Maternal Grandfather Cancer Maternal Uncle Diabetes Maternal Uncle Arthritis Mother Cancer Mother Diabetes Mother Elevated Lipids Mother Heart Disease Mother Hypertension Mother Cancer Paternal Aunt Alcohol abuse Paternal Grandfather Alcohol abuse Paternal Uncle Asthma Sister CVA Sister Alcohol abuse Son Asthma Son Depression Son Relation Name Status Comments Brother Daughter Father Maternal Aunt Maternal Grandfather Maternal Uncle Mother Paternal Aunt Paternal Grandfather Paternal Uncle Sister Son Social History Tobacco Use Types Packs/Day Years [...] Comments Blood Pressure 110/64 07/13/2017 10:18 AM VINEYARDIST Pulse 72 07/13/2017 10:18 AM VINEYARDIST Temperature 36.8 C (98.2 F) 07/01/2017 10:45 AM CDT Respiratory Rate 18 06/03/2017 1:20 PM CDT Oxygen Saturation 100% 07/01/2017 10:45 AM CDT Inhaled Oxygen Concentration - - Weight 64.4 kg (142 lb) 07/13/2017 10:18 AM VINEYARDIST Height 170.2 cm (5' 7 ) 07/13/2017 10:18 AM VINEYARDIST Body Mass Index 22.24 07/13/2017 10:18 AM VINEYARDIST Plan of Treatment Health Maintenance Due Date Last Done Comments BONE DENSITY TESTING 1944 DTAP/TDAP/TD VACCINES (1 - Tdap) 1963 PNEUMOCOCCAL VACCINE 50+ (1 of 2 - PCV) 1963 ZOSTER VACCINE (1 of 2) 1994 Respiratory Syncytial Virus (RSV) Vaccine Pt: or over 60 yrs (1 - 1-dose 75+ series) 2019 COVID-19 VACCINE (1 - 2023-2 5 season) 2024 INFLUENZA VACCINE (#1) 2024 DEPRESSION SCREENING 09/05/2024 HEPATITIS B VACCINE Aged Out No longe r eligible based on patient's age to complete this topic HIB VACCINE Aged Out No longer eligi ble based on patient's age to complete this topic HPV VACCINE Aged Out No longer eligi ble based on patient's age to complete this topic MENINGOCOCCAL (Group B) VACCINE Aged Out No longer eligible based on patient's age to complete this topic MENINGOCOCCAL VACCINE Aged Out No girish aurelio eligible based on patient's age to complete this topic Care Teams Slurry Control Tender Relationship Specialty Start Date End Date Lasha Mcallister MD [address] [place] [address] PCP - General 07/01/14
--- OUTSIDE RECORDS SUMMARY | 2024-10-22 01:34 | XMS_ITS | Clinical Summary ---
Author Organization [facility] Address [address] [place] [address] Care Team Providers Care Watch Repair Person Name Role Phone Redd Mcallister MD Primary Care Provider [phone] Nathan Tyler MD Unavailable Allergies Active Allergy Reactions Criticality Noted Date Comments Meperidine Unknown 10/05/2017 Potassium Chloride Diarrhea,Nausea Only 021 Tape Unknown 10/05/2017 Wheat GI Upset 03/15/2024 Medications * This document contains information received from the source organization and may not represent a complete record from that organization. Calcium Carb-Cholecalcif yamil (CALCIUM CARBONATE-VITAMI N D) 600-200 MG-UNIT tablet Take 1 tablet by mouth daily. Active multi vitamin/minerals tablet Take 1 tablet by mouth daily. Active albuterol sulfate HFA 108 (90 Base) MCG/ACT inhalerIndicatio ns:GLASER (dyspnea on exertion) Inhale 2 puffs into the lungs every 6 (six) hours as needed for Wheezing. 18 g 3 1 Active amitriptyline 25 MG tablet Take 2 tablets (50 mg total) by mouth nightly at bedtime. 2 Active buPROPion XL (WELLBUTRIN XL) 300 MG 24 hr tablet Take 1 tablet (300 mg total) by mouth every morning. 2 Active diphenoxylate-at ropine (LOMOTIL) 2.5-0.025 MG tablet Take 1 tablet by mouth 4 (four) times daily as needed for Diarrhea. 3 Active pantoprazole EC (PROTONIX) 40 MG tablet Take 1 tablet (40 mg total) by mouth daily. 3 Active spironolactone (ALDACTONE) 25 MG tablet Take 0.5 tablets (12.5 mg total) by mouth daily. 45 tablet 2 4 Active latanoprost (XALATAN) 0.005 % ophthalmic solution Place 1 drop into both eyes nightly. 4 Active temazepam (RESTORIL) 15 MG capsuleIndicatio ns:Insomnia, unspecified type Take 1 capsule (15 mg total) by mouth nightly as needed for Sleep. 5 capsule 4 Active cetirizine (ZYRTEC) 10 MG tablet Take 1 tablet (10 mg total) by mouth daily. 15 tablet 4 Active albuterol sulfate HFA 108 (90 Base) MCG/ACT inhaler Inhale 2 puffs into the lungs every 6 (six) hours as needed for Wheezing. 18 g 4 Active warfarin (COUMADIN) 2.5 MG tablet TAKE 3 TABLETS (7.5MG) BY MOUTH ONCE DAILY ON TUESDAY, TUESDAY AND TUESDAY THEN 2 TABLETS (5MG) ON ALL OTHER DAYS. 210 tablet 4 Active atorvastatin (LIPITOR) 20 MG tablet Take 1 tablet (20 mg total) by mouth nightly at bedtime. 90 tablet 1 4 Active furosemide (LASIX) 40 MG tablet Take 1 tablet (40 mg total) by mouth daily. 90 tablet 4 Active Active Problems Problem Noted Date Diagnosed Date CHF (congestive heart failure) ([facility]) 03/15/2024 PNA (pneumonia) 12/18/2022 Acute bronchitis 12/14/2022 Cough 12/07/2022 Diarrhea 12/07/2022 Vitamin D deficiency 12/07/2022 Hyperglycemia 12/07/2022 Balance problem 06/15/2022 Pacemaker 05/03/2022 Sinoatrial node dysfunction ([facility]) JAMISON on CPAP 03/07/2019 Valvular heart disease 03/07/2019 Diabetes mellitus ([facility]) 03/06/2019 Overview (03/06/2019): Overview: borderline Osteoporosis 03/06/2019 Dyspnea on exertion 09/18/2018 Bilateral carotid artery stenosis 12/27/2017 Abnormal results of thyroid function studies Abnormal TSH 07/04/2017 Other specified postprocedural states 05/28/2017 Overview (03/06/2019): Overview: 05/27/2017 Personal history of other di seases of the circulatory system 05/28/2017 Overview (03/06/2019): Overview: 05/27/2017 S/P Maze operation for atrial fibrillation 05/28 Overview (03/06/2019): Overview: 05/27/2017 S/P TVR (tricuspid valve repair) 05/28/2017 Overview (03/06/2019): Overview: 05/27/17 Overview: 05/27/17 Pulmonary hypertension ([facility]/HCC [facility]/HCC) 017 Overview (03/06/2019): Overview: Severe. RVSP 75 mmHg Overview: Severe. 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) 08/27/2014 Overview (03/06/2019): Overview: borderline Uncomplicated asthma ([facility]) 08/27/2014 Palpitations 08/26/2014 Essential (primary) hypertension 08/26/2014 Chest pain 07/26/2014 Breast disorder 06/02/2011 Malignant neoplasm of female breast ([facility]) 04/28/2011 Carcinoma in situ of breast 12/27/2007 Gastroesophageal reflux disease 12/27/2007 Irritable bowel syndrome 12/27/2007 Migraine headache 12/27/2007 A-fib ([facility]) CAD (coronary artery disease) Hypertension, essential Mitral valve regurgitation Tricuspid valve regurgitation Dyslipidemia Resolved Problems Problem Noted Date Diagnosed Date Resolved Date Wears glasses 03/27/2018 05/16/2020 Encounter for preventive health examination 03/13/2018 05/16/2020 Encounters Date Type Department Care Team Description 10/18/2024 8:30 AM PARTS COUNTER SPECIALIST Allied Health/Nurse Visit [facility], [address] [address] Josesito Torrez MD Remote Device Check 10/18/2024 Scan [facility], [address] [id number] Celina Hyde RN Information (CRMD form) 10/18/2024 Telephone [facility], [address] [id number] Celina Hyde RN Remote Device Check 10/11/2024 Anti-Coag Telephone Call [facility], [address] [id number] Tere Brady RN Anticoagulation (Warfarin hold for procedure) 10/10/2024 Telephone [facility], [address] [phone] Josesito Torrez MD Surgical Clearance 09/27/2024 12:40 PM PARTS COUNTER SPECIALIST - 09/27/2024 11:59 PM PARTS COUNTER SPECIALIST Hospital Encounter [facility] [id number] [place] [address] Josesito Torrez MD Discharge Disposition: Home or Self Care (Routine Discharge) 09/27/2024 Anti-Coag Telephone Call [facility], [address] [address] Tere Brady, KIM Anticoagulation (INR) 09/27/2024 Travel 09/13/2024 11:00 AM PARTS COUNTER SPECIALIST - 09/13/2024 11:59 PM PARTS COUNTER SPECIALIST Hospital Encounter [facility] [address] [place] [id number] Josesito Torrze MD Discharge Disposition: Home or Self Care (Routine Discharge) 09/13/2024 Anti-Coag Telephone Call [facility], [address] [address] Tere Brady RN Anticoagulation (INR) 09/13/2024 Travel 09/11/2024 Anti-Coag Telephone Call [facility], [address] [address] Tere Brady RN Anticoagulation (INR) 09/07/2024 3:25 PM PARTS COUNTER SPECIALIST - 09/07/2024 11:59 PM PARTS COUNTER SPECIALIST Hospital Encounter [facility] [id number] [place] [address] Josesito Torrez MD Discharge Disposition: Home or Self Care (Routine Discharge) 09/07/[address] [facility] [place] [address] Monica Berman MD Results (INR was 4.47.) 09/07/2024 Orders Only [facility] [address] [place] [address] Josesito Torrez MD 09/07/2024 Travel 08/24/2024 4:00 PM PARTS COUNTER SPECIALIST - 08/24/2024 4:01 PM PARTS COUNTER SPECIALIST Hospital Encounter [facility] [address] [place] [address] Martha Castano, APGRACIELA Discharge Disposition: Home or Self Care (Routine Discharge) 08/24/2024 Anti-Coag Telephone Call [facility] [address] [place] [address] Lacie Peters, RN Anticoagulation (protime) 08/24/2024 Orders Only [facility] [address] [place] [address] Martha Castano, APGRACIELA 08/24/2024 Orders Only [facility] [address] [place] [address] Martha Castano, KIET 08/24/2024 Travel 08/23/2024 Telephone [facility] [address] [address] Josesito Torrez MD Refill Request (FUROSEMIDE) 08/17/2024 2:50 PM PARTS COUNTER SPECIALIST - 08/17/2024 11:59 PM PARTS COUNTER SPECIALIST Hospital Encounter [facility] [address] [place] [address] Martha Castano, KIET Discharge Disposition: Home or Self Care (Routine Discharge) 08/17/2024 2:49 PM PARTS COUNTER SPECIALIST Hospital Encounter [facility] [address] [place] [address] Josesito Torrez MD Discharge Disposition: Home or Self Care (Routine Discharge) 08/17/2024 Anti-Coag Telephone Call [facility] [address] [place] [address] Tere Brady RN Anticoagulation (INR) 08/17/2024 Telephone [facility], [address] [address] Osiris España CMA Refill Request (atorvastatin) 08/17/2024 Orders Only [facility] [address] [place], [place] [id number] Josesito Torrez MD 08/17/2024 Orders Only [facility] [address] [place] [address] Martha Castano APNP 08/17/2024 Travel from Last 3 Months Immunizations Name Administration Dates Next Due Fluzone High Dose - >Age 65 (Prefilled Syringe) 06/21/2022,08/23/2021 Influenza (Generic) 06/21/2018,06/05/2018,2012 Influenza Adult (Generic) 06/10/2020,,06/04/2016,2014,06/14/2014 MODERNA COVID-19 (12+) MRNA, LNP-S, PF, 100 MCG/ 0.5 ML DOSE 08/23/2021,07/18/2021,10/31/2020,2020 PFIZER COVID-19 (ORIGINAL FORMULATION, PURPLE CAP) mRNA, LNP-S, PF, 30 MCG/0.3 ML DOSE 05/25/2022 Pneumococcal (Pneumovax 23) 07/06/2000 Pneumococcal (Prevnar 13) 11/29/2014 Family History Medical History Relation Comments Asthma Father Diabetes Father Heart Father Diabetes Mother Heart Mother Relation Status Comments Father Mother Social History Tobacco Use Types Packs/Day Years Used Date Smoking Tobacco: Former Cigarettes 0.5 5 1 967 - 1972 Smokeless Tobacco: Never Tobacco Cessation:Counseling Given: Yes Alcohol Use Standard Drinks/Week Comments Not Currently 0 (1 standard drink = 0.6 oz pur e alcohol) socially B1300 Health Literacy Answer Date Recor ded How often do you need to hav e someone help you when you read instructions, pamphlets, or other written material from your doctor or pharmacy? Never 03/15/2024 [facility] Utilities Answer Date Recorded In the past 12 months has th e electric, gas, oil, or water company threatened to shut off services in your home? No 03/15/2024 Humiliation, Afraid, Rape, and Kick questionnair e Answer Date Recorded Within the last year, have y ou been afraid of your partner or ex-partner? No 03/15/2024 Within the last year, have y ou been humiliated or emotionally abused in other ways by your partner or ex-partner? No Within the last year, have y ou been kicked, hit, slapped, or otherwise physically hurt by your partner or ex-partner? No 03/15/2024 Within the last year, have y ou been raped or forced to have any kind of sexual activity by your partner or ex-partner? No 03/15/2024 AUDIT-C Answer Date Recorded Frequency of Alcohol Consumption Monthly or less 10/09/2020 Average Number of Drinks Not on file 021 Frequency of Binge Drinking Not on file 12/2020 Overall Financial Resource Strain (CARDIA) Answe r Date Recorded How hard is it for you to pa y for the very basics like food, housing, medical care, and heating? Not hard at all 03/15/2024 PHQ-2 Answer Date Recorded Patient Health Questionnaire-2 Score 0 05/11/2024 Hunger Vital Sign Answer Date Recorded Within the past 12 months, y ou worried that your food would run out before you got the money to buy more. Never true 03/15/20 24 Within the past 12 months, t he food you bought just didn't last and you didn't have money to get more. Never true 03/15/2024 PRAPARE - Transportation Answer Date Re corded In the past 12 months, has l ack of transportation kept you from medical appointments or from getting medications? No 03/05 In the past 12 months, has l ack of transportation kept you from meetings, work, or from getting things needed for daily living? No 03/15/2024 Housing Stability Vital Sign Answer Warren e [...] place to sleep or slept in a care home (including now)? No 12/18/2022 Housing Stability Vital Sign Answer Warren e Recorded In the last 12 months, was t here a time when you were not able to pay the mortgage or rent on time? No 03/15/2024 In the past 12 months, how m any times have you moved where you were living? 0 03/15/2024 At any time in the past 12 m [facility], were you homeless or living in a care home (including now)? No 03/15/2024 Comments No Sex and Gender Information Value Date Recorded Sex Assigned at Female 12/17/2022 10:53 PM CDT Legal Sex Female 8:03 PM CDT Gender Identity Female 12/17/2022 10:53 PM CDT Sexual Orientation Straight 12/17/2022 10 :53 PM CDT Occupation Industry Job Start Date Job End Date Not on file Not on file Not on file Not on file Last Filed Vital Signs Vital Sign Reading Time Taken Comments Blood Pressure 138/56 05/30/2024 11:29 AM CDT Pulse 82 05/30/2024 11:29 AM CDT Temperature 37.1 C (98.7 F) 05/30/2024 11:29 AM CDT Respiratory Rate 16 05/30/2024 11:2 9 AM CDT Oxygen Saturation 98% 05/30/2024 11: 29 AM CDT Inhaled Oxygen Concentration - - Weight 62.1 kg (136 lb 14.5 oz) 05/30/2024 9:57 AM CDT Height 170.2 cm (5' 7 ) 05/30/2024 9:57 AM CDT Body Mass Index 21.44 05/30/2024 9:57 AM CDT Plan of Treatment Upcoming Encounters Date Type Department Care Team (Late st Contact Info) Description 10/29/2024 9:45 AM PARTS COUNTER SPECIALIST [facility] [address] [place] [address] Josesito Torrez MD [facility]. [address] [address] 01/21/2025 11:10 AM CDT Allied Health/Nurse Visit [facility], [address] [address] Josesito Torrez MD [facility]. [address] [address] Health Maintenance Due Date Last Done Comments Kidney Health Evaluation 1944 Diabetes: Retinopathy Eye Exam 1962 DTaP, Tdap and Td Vaccines (1 - Tdap) 1963 Zoster Vaccines (1 of 2) 1994 Annual Medicare Wellness Visit 2009 Pneumococcal Vaccine: 65+ Years (3 of 3 - PPSV23 or PCV20) 11/30/2015 11/29/2014, 07/06/2000 RSV Immunization or 60+ Years (1 - 1-dose 75+ series) 2019 COVID-19 Vaccine ( season) 2024 05/25/2022, 08/23/2021, 07/18/2021, Additional history exists Influenza Adult (#1) 2024 06/21/2022, 08/23/2021, 06/10/2020, Additional history exists PHQ-2 (Physician [place]) 09/05/2024 05/11/2024 Hemoglobin A1C 09/16/2024 03/16/2024, 03/05, 10/12/2021, Additional history exists Lipid Panel 02/05/2025 02/06/2024, 04/05, 02/16/2022, Additional history exists Dexa Scan (General) Completed 07/14/2022 Meningococcal B Vaccine Aged Out No l onger eligible based on patient's age to complete this topic Meningococcal Vaccine Aged Out No girish aurelio eligible based on patient's age to complete this topic RSV Immunizations Under 20 Months Aged Out No longer eligible based on patient's age to complete this topic Goals Goal Patient Goal Type Associated Problems Recent Progress Patient-Stated? Author Health - patient able to perform ADLs independently Lifestyle David Reyes RN Medical Devices Implanted Type Area Supervisor Sound Technician Device Identifier Shelf Expiration Date Model / Serial / Lot Rv-Lead-05/03 Implanted:Qt y: 1 on 05/03/2022 by Brennen Awad MD Lead Implant Right: Ventricle [employer] [id number] 04/20/2024 [id number] / [id number] / Atrial-Lead- 05/03/2022 Implanted:Qt y: 1 on 05/03/2022 by Brennen Awad MD Lead Implant Right: Atrium [employer] [id number] 01/30/2024 [id number] / [id number] / Pacemaker [employer]- Implanted:Qt y: 1 on 05/03/2022 by Brennen Awad MD Pacemaker Left: Chest [employer] [id number] 04/07/2024 [id number] / [id number] / Procedures Procedure Name Priority Date/Time Associated Diagnosis Comments PROTHROMBIN TIME, FINGERSTICK Routine 09/27/2024 12:58 PM PARTS COUNTER SPECIALIST PAF (paroxysmal atrial fibrillation) ([facility]) residential (current) use of anticoagulants PROTHROMBIN TIME, FINGERSTICK Routine 09/13/2024 11:15 AM PARTS COUNTER SPECIALIST PAF (paroxysmal atrial fibrillation) ([facility]/HCC) residential (current) use of anticoagulants PROTHROMBIN TIME, VENOUS Routine 09/07/2024 3:36 PM PARTS COUNTER SPECIALIST residential current use of anticoagulant PROTHROMBIN TIME, FINGERSTICK Routine 08/24/2024 4:15 PM PARTS COUNTER SPECIALIST PAF (paroxysmal atrial fibrillation) ([facility]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 CLOSTRIDIUM DIFFICILE Routine 08/17/2024 3:16 PM PARTS COUNTER SPECIALIST Irritable bowel syndrome with diarrhea Enterocolitis due to Clostridium difficile, not specified as recurrent CALPROTECTIN FECAL Routine 08/17/2024 3: 16 PM PARTS COUNTER SPECIALIST Irritable bowel syndrome with diarrhea Enterocolitis due to Clostridium difficile, not specified as recurrent PROTHROMBIN TIME, VENOUS Routine 08/17/2024 3:04 PM PARTS COUNTER SPECIALIST PAF (paroxysmal atrial fibrillation) (CMS/HCC HHS/HCC) SED RATE, ERYTHROCYTE (ESR) Routine 08/17/2024 3:04 PM PARTS COUNTER SPECIALIST Irritable bowel syndrome with diarrhea Enterocolitis due to Clostridium difficile, not specified as recurrent C-REACTIVE PROTEIN Routine 08/17/2024 3: 04 PM PARTS COUNTER SPECIALIST Irritable bowel syndrome with diarrhea Enterocolitis due to Clostridium difficile, not specified as recurrent CELIAC DISEASE COMP PANEL Routine 08/17/2024 3:04 PM PARTS COUNTER SPECIALIST Irritable bowel syndrome with diarrhea Enterocolitis due to Clostridium difficile, not specified as recurrent HEMOGLOBIN, GLYCOSYLATED Routine 03/16/2024 7:23 AM CDT LIPID PANEL Routine 02/06/2024 12:25 PM CDT Mixed hyperlipidemia BONE DENSITY/DEXA Routine 07/14/2022 3:2 6 PM PARTS COUNTER SPECIALIST Age-related osteoporosis without current pathological fracture from Last 3 Months or Most Recently Relevant to Health Maintenance Results * PROTIME/INR, FINGERSTICK (09/27/2024 12:58 PM PARTS COUNTER SPECIALIST) Only the most recent of3 resultswithin the time period is included. INR WHOLE BLOOD 1.6 1:00 PM PARTS COUNTER SPECIALIST [facility] Comment: Recommend INR ranges for Oral Anticoagulant Therapy: Mechanical Cardiac Values 2.5-3.5 All others indication 2.0-3.0 09/27/2024 12:5 8 PM PARTS COUNTER SPECIALIST us Josesito Torrez MD LABORATORY Final Resul t [facility] [address] [place] [address], [place] [phone] * (ABNORMAL) PROTIME/INR, VENOUS (09/07/2024 3:36 PM PARTS COUNTER SPECIALIST) Only the most recent of2 resultswithin the time period is included. Pathologist [facility] PROTIME 49.0(H) 9.1 - 12.4 SEC 09/07/2024 5:21 PM PARTS COUNTER SPECIALIST [facility] INR 4.5(HH) 09/07/2024 5:21 PM PARTS COUNTER SPECIALIST [facility] Comment: ALERT VALUE CALLED TO AND READ BACK BY: DR NICOLA BLEDSOE ON [id number] AT 1720. JDJ Recommend INR ranges for Oral Anticoagulant Therapy: Mechanical Cardiac Values 2.5-3.5 All others indication 2.0-3.0 CRITICAL VALUE, CHECKED AND CALLED 09/07/2024 3:36 PM PARTS COUNTER SPECIALIST Josesito Torrez MD LABORATORY Final Resul t Performing Organization Address [facility]UST Co de Phone Number [facility] [address] [place] [address], * CLOSTRIDIUM DIFFICILE (08/17/2024 3:16 PM PARTS COUNTER SPECIALIST) [facility] GDH ANTIGEN NEGATIVE NEGATIVE 08/17/2024 4:24 PM PARTS COUNTER SPECIALIST [facility] C DIFFICILE TOXIN A&B (STOOL) NEGATIVE NEGATIVE 08/17/2024 4:24 PM PARTS COUNTER SPECIALIST [facility] COMMENT GDH NEGATIVE/TOXI N A & B NEGATIVE: NEGATIVE FOR TOXIGENIC C. DIFFICILE. GDH NEGATIVE/TOXI N A & B NEGATIVE: NEGATIVE FOR TOXIGENIC C. 08/17/2024 4:24 PM PARTS COUNTER SPECIALIST [facility] STOOL SPECIMEN / Unknown 08/17/2024 3:16 PM PARTS COUNTER SPECIALIST Martha SANTA BODY FLUIDS AND STOOLS ORDER FATIMAH Final Result Performing Organization Address [facility]/ZIP Co de Phone Number [facility] (H) [facility] [address] [place] [address], [place] [phone] * (ABNORMAL) CALPROTECTIN FECAL (08/17/2024 3:16 PM PARTS COUNTER SPECIALIST) CALPROTECTIN (STOOL) 170(H) mcg/g 08/24/2024 6:57 PM PARTS COUNTER SPECIALIST [facility] Comment: Reference Range: <50 Normal 50-120 Borderline >120 Elevated Calprotectin in Crohn's disease and ulcerative colitis can be five to several thousand times above the reference population (50 mcg/g or less). Levels are usually 50 mcg/g or less in healthy patients and with irritable bowel syndrome. Repeat testing in 4-6 weeks is suggested for borderline values. Test performed by [facility] [address] [place] [address] Turning Machine Operator Helper: Daisy Lay MD,PHD,PIPPA Test Reported by Merlin Young, [employer] [place], [address] [place], [place] Carmelo Snow M.D., Ph.D., Director of Laboratories , [facility] [id number] STOOL SPECIMEN / Unknown 08/17/2024 3:16 PM PARTS COUNTER SPECIALIST Martha SANTA BODY FLUIDS AND STOOLS ORDER FATIMAH Final Result Performing Organization Address [facility]/ZIP Co de Phone Number [facility] [address] [place], [place] , * CELIAC DISEASE COMP PANEL (08/17/2024 3:04 PM PARTS COUNTER SPECIALIST) INTERPRETATION REPORT 08/23/2024 9:02 AM PARTS COUNTER SPECIALIST [facility] EDDIE MONTEZ Comment: No serological evidence for celiac disease is present. tTG may normalize in individuals with celiac disease who maintain a gluten free diet. If high suspicion of celiac disease, consider HLA DQ2 and DQ8 testing to rule out celiac disease. TISSUE TRANSGLUTAMINASE IGA AB <1.0 <15.0 U/mL 08/23/2024 9:02 AM PARTS COUNTER SPECIALIST [facility] EDDIE MONTEZ Comment: Value Interpretation <15.0 Antibody not detected > or = 15.0 Antibody detected IGA 206 70 - 320 mg/dL 08/23/2024 9:02 AM PARTS COUNTER SPECIALIST [facility] EDDIE MONTEZ Comment: Test Performed by [facility], [facility], [address] [place], [place] Carmelo Snow M.D., Ph.D., Director of Laboratories , [place] [id number] 08/17/2024 3:04 PM PARTS COUNTER SPECIALIST Martha SANTA LABORATORY Final Result Performing Organization Address [facility]/ZIP Co de Phone Number [facility] [address] [place], [place] , [place] [phone] * SED RATE, ERYTHROCYTE (ESR) (08/17/2024 3:04 PM PARTS COUNTER SPECIALIST) Pathologist [facility] ESR 17 0 - 20 MM/HR 08/17/2024 3:34 PM PARTS COUNTER SPECIALIST [facility] 08/17/2024 3:04 PM PARTS COUNTER SPECIALIST Martha SANTA LABORATORY Final Result [facility] [facility] [address] [place] [address], [place] [phone] * C-REACTIVE PROTEIN (08/17/2024 3:04 PM PARTS COUNTER SPECIALIST) C-REACTIVE PROTEIN <0.29 <0.29 mg/dL 08/17/2024 9:53 PM PARTS COUNTER SPECIALIST [facility] 08/17/2024 3:04 PM PARTS COUNTER SPECIALIST Martha [facility] Final Result [facility] [address] [place] [address], [place] [phone] * (ABNORMAL) HEMOGLOBIN, GLYCOSYLATED (03/16/2024 7:23 AM CDT) HGB A1C 6.2(H) <5.7 % 03/16/2024 10:18 AM CDT [facility] Comment: ADA GUIDELINES 2010 5.7 TO 6.4% INCREASED RISK OF DIABETES > OR = 6.5% CONSISTENT WITH DIABETES ESTIMATED AVG GLUCOSE 131 mg/dL 03/16/2024 10:18 AM CDT [facility] 03/16/2024 7:23 AM CDT Debora Thomson MD LABORATORY Final Result [facility] [address] [place] [address], [place] [phone] * LIPID PANEL (02/06/2024 12:25 PM CDT) CHOLESTEROL 178 <200.0 MG/DL 02/06/2024 2:02 PM CDT [facility] TRIGLYCERIDES 44 <150 MG/DL 02/06/2024 2:02 PM CDT [facility] HDL 137 >40.0 MG/DL 02/06/2024 2:02 PM CDT [facility] LDL (CALCULATED) 32 <100 MG/DL 02/06/20 2:02 PM CDT [facility] NON HDL CHOLESTEROL 41 <130 MG/DL 02/05 2:02 PM CDT [facility] CHOL/HDL RATIO 1.3 0.0 - 4.5 02/06/2024 2:02 PM CDT [facility] VLDL CALCULATION 9 5 - 55 MG/DL 02/06/2024 2:02 PM CDT [facility] LIPID INTERPRETATION 02/06/2024 2:02 PM CDT [facility] Comment: NIH CONCENSUS REPORT RECOMMENDATIONS: ADULT CHILD LOW RISK: CHOLESTEROL <200 <170 TRIGLYCERIDE <150 --- HDL >=60 --- LDL <100 <110 BORDERLINE: CHOLESTEROL 200-239 170-199 TRIGLYCERIDE 150-199 --- HDL 40-59 --- LDL 100-159 110-129 HIGH RISK: CHOLESTEROL >=240 >=200 TRIGLYCERIDE >=200 --- HDL <40 --- LDL >=160 >=130 02/06/2024 12:2 5 PM CDT Padmini [facility] Final Result Performing Organization Address City/State/RUST Co de Phone Number [facility] [address] [place] [address], * BONE DENSITY/DEXA (07/14/2022 3:26 PM PARTS COUNTER SPECIALIST) Anatomical Region Laterality Modality Bone Bone Density 07/14/2022 3:47 PM PARTS COUNTER SPECIALIST Narrative 07/14/2022 3:48 PM PARTS COUNTER SPECIALIST IMAGING STUDIES: BONE DENSITY/DEXA DATE: 07/14/2022 3:00 PM CLINICAL HISTORY: Age-related osteoporosis without current pathological fracture . 69-year-old female with menopause at age 46. No calcium therapy. FINDINGS: LUMBAR SPINE L2-L4: BMD: 0.910 g/sq cm T-SCORE: -1.5 WHO CLASSIFICATION: Moderate osteopenia FRACTURE RISK: Low LEFT FEMORAL NECK: BMD: 0.545 T-SCORE: -2.7 WHO CLASSIFICATION: Mild osteoporosis FRACTURE RISK: Moderate Recommendation. Instigation of calcium replacement therapy with repeat imaging in one year. I would rely on the left femoral neck findings. Lumbar findings are elevated due to degenerative change. Ordered By: REDD Wenally Signed By: Jude Ray on 07/14/2022 3:48 PM Interpreted By: Jude Ray, 07/14/2022 3:47 PM Procedure Note Tariq Ray MD - 07/14/2022 IMAGING STUDIES: BONE DENSITY/DEXA DATE: 07/14/2022 3:00 PM CLINICAL HISTORY: Age-related osteoporosis without current pathologicalfracture . 69-year-old female with menopause at age 46. Nocalcium therapy. FINDINGS: LUMBAR SPINE L2-L4: BMD: 0.910 g/sq cm T-SCORE: -1.5 WHO CLASSIFICATION: Moderate osteopenia FRACTURE RISK: Low LEFT FEMORAL NECK: BMD: 0.545 T-SCORE: -2.7 WHO CLASSIFICATION: Mild osteoporosis FRACTURE RISK: Moderate Recommendation. Instigation of calcium replacement therapy with repeatimaging in one year. I would rely on the left femoral neck findings. Lumbar findings areelevated due to degenerative change. Ordered By: REDD MCALLISTER Interpreted By: Jude Ray, 07/14/2022 3:47 PM Redd Mcallister MD DEXA Final Result from Last 3 Months or Most Recently Relevant to Health Maintenance Additional Health Concerns Infection Onset Date Last Indicated C. difficile 07/12/2024 07/12/2024 Insurance [facility] MEDIC[facility] Advance Directives Documents on File Type Date Recorded Patient Contact Center Agent Expl anation Advance Directives and Livin g Will 03/21/2024 12:04 PM * Full Code (Latest Code Status on File) Date Activated Date Inactivated Comments 03/15/2024 8:48 PM 03/17/2024 5:50 PM * Full Code Date Activated Date Inactivated Comments 12/18/2022 1:27 PM 12/22/2022 1:43 PM * Full Code Date Activated Date Inactivated Comments 05/03/2022 4:34 PM 05/03/2022 8:56 PM Care Teams Watch Repair Person Relationship Specialty Start Date End Date Redd Mcallister MD [address] [place] [address] PCP - General INTERNAL MEDICINE 07/06/17 Nathan Tyler MD [address] [place] [address] Referring Physician 09/22/22
--- OUTSIDE RECORDS SUMMARY | 2024-10-22 01:34 | XMS_ITS | Encounter Summary ---
Author Organization [facility] Address [address] [place] [address] Care Team Providers Care Full Fashioned Garment Knitter Name Role Phone Lasha Mcallister MD Primary Care Provider [phone] Josesito Torrez MD Unavailable [phone] Carolyn Denson ANP-BC Unavailable Unavailab Nathan Sheriff MD Unavailable [phone] Encounter Details Date Type Department Care Team (Late st Contact Info) Description 06/06/2017 Abstract [facility] CON[facility] [address] [place] [address] , Monica Barbosa MD Social [...] (Late Contact Info) Description 10/29/2024 9:45 AM SALVATIONIST [facility] [address] [place] [phone] Josesito Torrez MD [facility]. [address] [id number] 01/21/2025 11:10 AM CDT Allied Health/Nurse Visit [facility] THREE [facility], [facility] [address] [place] [address] Josesito Torrez MD Three [facility]. [facility] [address] [place], [place] [address] documented as of this encounter Visit Diagnoses [...] documented as of this encounter Care Teams Full Fashioned Garment Knitter Relationship Specialty Start Date End Date Lasha Mcallister MD [address] [facility] [address] [place] [address] PCP - General INTERNAL MEDICINE 07/06/17 Carolyn Denson ANP- PCP - [place] - MSSP Attributed Provider 09/05/15 05/23/19 Josesito Torrez MD Three [facility]. [facility] [address] [place], [place] [address] [place] Jig Maker CARDIOVASCULAR DISEASE 07/06/17 09/21/22 Nathan Tyler MD [address] [address] Referring Physician 09/22/22 documented as of this encounter
--- OUTSIDE RECORDS SUMMARY | 2024-10-22 01:34 | XMS_ITS | Encounter Summary ---
Author Organization [facility] Address [address] [place] [address] Care Team Providers Care Pencil Maker Name Role Phone Lasha Mcallister MD Primary Care Provider [phone] Josesito Torrez MD Unavailable [phone] Carolyn Denson ANP-BC Unavailable Unavailab Nathan Sheriff MD Unavailable [phone] Encounter Details Date Type Department Care Team (Late st Contact Info) Description 11/15/2016 Abstract [facility] CONVERSION [address] [place] [address] , Monica Barbosa MD Social [...] (Late Contact Info) Description 10/29/2024 9:45 AM FOUR ROLL CALENDER OPERATOR [facility] [address] [place] [address] Josesito Torrez MD [facility]. [address] [id number] 01/21/2025 11:10 AM CDT Allied Health/Nurse Visit [facility] [facility], [facility] [address] [place] [address] Josesito Torrez MD Three [facility]. [facility] [address] [place], [place] [address] documented as of this encounter Visit Diagnoses [...] documented as of this encounter Care Teams Pencil Maker Relationship Specialty Start Date End Date Lasha Mcallister MD [address] [facility] [address] [place] [address] PCP - General INTERNAL MEDICINE 07/06/17 Carolyn Denson ANP- PCP - [place] - MSSP Attributed Provider 09/05/15 05/23/19 Josesito Torrez MD Three [facility]. [facility] [address] [place], [place] [address] [place] Repair Supervisor CARDIOVASCULAR DISEASE 07/06/17 09/21/22 Nathan Tyler MD [address] [address] Referring Physician 09/22/22 documented as of this encounter
--- OUTSIDE RECORDS SUMMARY | 2024-10-22 01:34 | XMS_ITS | Encounter Summary ---
Author Organization [facility] Address [facility] [place] [address] Care Team Providers Care Stem Roller Operator Name Role Phone Lasha Mcallister MD Primary Care Provider [phone] Josesito Torrez MD Unavailable [phone] Carolyn Denson Unavailable Unavailab Nathan Sheriff MD Unavailable [phone] Encounter Details Date Type Department Care Team (Late st Contact Info) Description 10/10/2017 Abstract [facility] at [address] [address] Susan Rdz MA Social History Tobacco Use Types Packs/Day Years Used Date Smoking Tobacco: Former Cigarettes Q uit: 1972 Smokeless Tobacco: Never Alcohol Use Standard Drinks/Week Comments Yes 0 (1 standard drink = 0.6 oz pur e alcohol) seldom Comments Unknown Sex and Gender Information Value Date Recorded Sex Assigned at Female 12/17/2022 10:53 PM CDT Legal Sex Female 8:03 PM CDT Gender Identity Female 12/17/2022 10:53 PM CDT Sexual Orientation Straight 12/17/2022 10 :53 PM CDT documented as of this encounter Progress Notes * MYRNA Lira - 10/10/2017 2:34 PM CST PG pt send letter continue current meds HOUSE KILN OPERATOR documented in this encounter Plan of Treatment Upcoming Encounters Date Type Department Care Team (Late st Contact Info) Description 10/29/2024 9:45 AM MALT HOUSE KILN OPERATOR Office Visit [facility] [address] [place] [address] Josesito Torrez MD Three [facility]. [facility] [address] [place], [place] [id number] 01/21/2025 11:10 AM CDT Allied Health/Nurse [facility] THREE [facility], [facility] [address] [place] [address] Josesito Torrez MD Three [facility]. [facility] [address] [place], [place] [id number] documented as of this encounter Procedures Procedure Name Priority Date/Time Associated Diagnosis Comments BASIC METABOLIC PANEL Routine 06/23/2017 CBC (OUTSIDE LAB) Routine 06/20/2017 documented in this encounter Results * BASIC METABOLIC PANEL (06/23/2017) SODIUM S/P/B 136 POTASSIUM S/P/B 4.0 CO2 20 CHLORIDE S/P/B 107 GLUCOSE 171 mg/dL CALCIUM S/P/B 9.5 BUN 12 CREATININE S/P/B 0.85 0.5 - 1.0 EGFR NON-AFR. AMER. >60 <=90 06/23/2017 us Doc [facility] LABORATORY Final Result * CBC (OUTSIDE LAB) (06/20/2017) WBC 6.5 HGB 9.6 HCT 29.2 PLT 167 06/20/2017 us Doc [facility] Abstract LAB-OUTSIDE/ABSTRACTED Final Result documented in this encounter Visit Diagnoses Not on filedocumented [...] documented as of this encounter Care Teams Stem Roller Operator Relationship Specialty Start Date End Date Lasha Mcallister MD [address] [facility] [address] [place] [address] PCP - General INTERNAL MEDICINE 07/06/17 Carolyn Denson ANP- PCP - [place] [facility] Attributed Provider 09/05/15 05/23/19 Josesito Torrez MD [facility] [address] [place] [address] Artie Straightener Hand CARDIOVASCULAR DISEASE 07/06/17 09/21/22 Nathan Tyler MD 30 [facility] 1 [place] [address] Referring Physician 09/22/22 documented as of this encounter
--- OUTSIDE RECORDS SUMMARY | 2024-10-22 01:34 | XMS_ITS ---
Author Organization [facility] Address [address] [place] [address] [place] [address] Care Team Providers Care Roads Supervisor Name Role Phone REDD RICK MD Primary Care Provider Magdiel Schwab Unavailable [phone] ALLERGIES No Known Allergies REASON FOR VISIT FOLLOW UP MEDICATIONS Medication SIG (Take, Route, Frequency, Duration) [...] EACH EYE AT BEDTIME Ophthalmic for 30 [id number],Lisandra skaggs Active Warfarin Sodium 2.5 MG 1 tablet Oral Onc e a day Active Furosemide 40 MG TAKE 1 TABLET BY MOUTH ONCE DAILY Oral for 90 Active buPROPion HCl ER (XL) 300 MG TAKE 1 TABLET BY MOUTH ONCE DAILY IN THE MORNING Oral Active Atorvastatin Calcium 20 MG 1 tablet Oral Once a day Active SOCIAL HISTORY Tobacco Use: Social History Observation Description Date Details (start date - stop date) Never Smoker NA - NA Sex Assigned At : Social History Observation Description Sex Assigned At Unknown Tobacco Use/Smoking Question Answer Notes Are you a nonsmoker Encounters Encounter Location Date Provider Diagnosis [facility] [address] [facility] [place] [address] 07/17/2024 Magdiel Vijaya Primary osteoarthritis, right shoulder M19.011 ; Pain in right shoulder M25.511 and Bursitis of right shoulder M75.51 ASSESSMENTS Encounter Date Diagnosis Assessment Notes Treatment Notes Treatment Clinical Notes 07/17/2024 Primary osteoarthritis, right shoulder (ICD-10 - M19.011) 07/17/2024 Pain in right shoulder (ICD-10 - M25.511) 07/17/2024 Bursitis of right shoulder (ICD-10 - M75.51) PLAN OF TREATMENT No Information Progress Notes * Examination Category Sub-Category Detail [...]
[2024-10-22 11:52] VITALS: BP 135/75; PULSE 71; RESP 18; TEMP 36.1; O2SAT 100
[2024-10-22] MEDS: LACTATED RINGERS 1,000 ML 150 ML IV CONT (12:00)
--- NOTE | 2024-10-22 12:08 | WPDANESEPPF ---
Anes - Initial Pre Proc Eval Procedure: Operation Date: 10/22/24 14:30 Proposed Procedures p Esophagogastroduodenoscopy & Colonoscopy - Manjit Lubin MD Date/Time: 10/22/24 12:08 Surgeon: Manjit Lubin MD Pre Op Diagnosis: GERD, Enterocolitis, abnormal findings Patient Data Age: 79 Gender: F Height: 1.7 m Weight: 58.3 kg Last Vital Signs Temp 36.1 C L 10/22/24 11:52 Pulse 71 10/22/24 11:52 Resp 18 10/22/24 11:52 BP 135/75 10/22/24 11:52 Pulse Ox 100 10/22/24 11:52 O2 Del Method Room Air 10/22/24 11:52 Allergies Allergy/AdvReac Type Severity Reaction Status Date / Time albuterol AdvReac Unknown RAPID Verified 10/22/24 11:43 HR/NERVOUS Home Medications ?Medication ?Instructions ?Recorded ?Confirmed ?Type albuterol 90 mcg/actuation aerosol 90 mcg inhalation Q4-6H PRN 12/03/19 10/16/24 History inhaler shortness of breath or wheezing amitriptyline 50 mg tablet 50 mg PO ONCE 12/03/19 10/16/24 History potassium chloride 10 mEq 10 meq PO DAILY 12/03/19 10/22/24 History tablet,extended release atorvastatin 20 mg tablet See Rx Instructions .Route 04/23/22 10/22/24 Rx .COMPLEX #90 tabs bupropion HCl 300 mg 24 hr tablet, 300 mg PO QAM 08/16/24 10/22/24 History extended release furosemide 20 mg tablet 20 mg PO .QOD PRN edema 08/16/24 10/16/24 History ascorbic acid (vitamin C) 500 mg 500 mg PO DAILY 10/16/24 10/22/24 History capsule calcium carb-mag ox-zinc gluc 2 tablet PO BID 10/16/24 10/22/24 History latanoprost 0.005 % eye drops 1 drp EACH EYE QPM 10/16/24 10/22/24 History loperamide 2 mg capsule 2 mg PO TID PRN diarrhea 10/16/24 10/16/24 History (Anti-Diarrheal (loperamide)) warfarin 2.5 mg tablet 7.5 mg PO .AKOSUA BALBUENASAT 10/16/24 10/22/24 History pantoprazole 40 mg tablet,delayed 40 mg PO DAILY 10/22/24 10/22/24 History release Patient hx anesthesia problems: none Family hx anesthesia problems: none Results Review: All pre-operative results and documents have been reviewed as part of the pre-operative evaluation. [facility], [facility] Past Medical History Medical History (Updated 10/22/24 @ 12:09 by Ulises Pichardo DO) History of breast cancer JAMISON (obstructive sleep apnea) Gall bladder disease Heart murmur Headache, migraine Elevated lipids Diabetes Hypertension Colitis Bleeding tendency Surgical History Surgical History Heart valve replaced H/O: hysterectomy Family History Family History Mother Diabetes mellitus Father Family history of cardiovascular disease Social History Social History Smoking status: Never smoker Alcohol intake: current Substance use: never Substance use type: does not use Living arrangements: with family Spiritual care concerns: No Anes - Eval Final PreProcedure Day of Procedure 10/22/24 12:08 Patient weight: normal Heart: regular rate and rhythm Lungs: clear to auscultation and normal air movement Airway: Mallampati scale class II Neurological: alert and oriented Last oral intake: >/= 8 hours ASA classification: III Emergent: no Anesthetic plan: proceed Anesthesia type and monitoring: general GIVS and standard monitoring Results Review: All pre-operative results and documents have been reviewed as part of the pre-operative evaluation. Informed Consent: The patient's anesthetic plan and its attendant risks and benefits were discussed with the patient/family/POA. Questions were solicited and answers provided to the satisfaction of the patient/family/POA.
--- NOTE | 2024-10-22 12:20 | PM.HPGS ---
History of Present Illness History of Present Illness Consent: Risks, benefits, and alternatives have been discussed and questions answered. Patient agrees to proceed with procedure. Chief complaint: GERD, Enterocolitis, abnormal findings Narrative: Lacie Perez is a 79 year old female with recent episode of more diarrhea than baseline with C diff colitis (she normally tends to have loose stools since had cholecystectomy many years ago), also gerd. ESR/CRP normal, celiac panel negative. Review of Systems Review of Systems: All systems reviewed & are unremarkable except as noted in HPI and below PMFSH Past Medical History Medical History (Updated 10/22/24 @ 12:09 by Ulises Pichardo, ) History of breast cancer JAMISON (obstructive sleep apnea) Gall bladder disease Heart murmur Headache, migraine Elevated lipids Diabetes Hypertension Colitis Bleeding tendency Surgical History Surgical History Heart valve replaced H/O: hysterectomy Family History Family History Mother Diabetes mellitus Father Family history of cardiovascular disease Social History Social History Smoking status: Never smoker Alcohol intake: current Substance use: never Substance use type: does not use Living arrangements: with family Spiritual care concerns: No Meds Home Medications and Allergies Home Medications ?Medication ?Instructions ?Recorded ?Confirmed ?Type albuterol 90 mcg/actuation aerosol 90 mcg inhalation Q4-6H PRN 12/03/19 10/16/24 History inhaler shortness of breath or wheezing amitriptyline 50 mg tablet 50 mg PO ONCE 12/03/19 10/16/24 History potassium chloride 10 mEq 10 meq PO DAILY 12/03/19 10/22/24 History tablet,extended release atorvastatin 20 mg tablet See Rx Instructions .Route 04/23/22 10/22/24 Rx .COMPLEX #90 tabs bupropion HCl 300 mg 24 hr tablet, 300 mg PO QAM 08/16/24 10/22/24 History extended release furosemide 20 mg tablet 20 mg PO .QOD PRN edema 08/16/24 10/16/24 History ascorbic acid (vitamin C) 500 mg 500 mg PO DAILY 10/16/24 10/22/24 History capsule calcium carb-mag ox-zinc gluc 2 tablet PO BID 10/16/24 10/22/24 History latanoprost 0.005 % eye drops 1 drp EACH EYE QPM 10/16/24 10/22/24 History loperamide 2 mg capsule 2 mg PO TID PRN diarrhea 10/16/24 10/16/24 History (Anti-Diarrheal (loperamide)) warfarin 2.5 mg tablet 7.5 mg PO .TURICARDO,AKOSUA,SAT 10/16/24 10/22/24 History pantoprazole 40 mg tablet,delayed 40 mg PO DAILY 10/22/24 10/22/24 History release Allergies Allergy/AdvReac Type Severity Reaction Status Date / Time albuterol AdvReac Unknown RAPID Verified 10/22/24 11:43 HR/NERVOUS Vital Signs Vital Signs - 24 hr 10/22/24 11:52 Temperature 97 F L Pulse Rate 71 Respiratory Rate 18 Blood Pressure 135/75 Pulse Oximetry 100 Oxygen Delivery Room Air Exam Const: General: comfortable and no acute distress HENMT: Face/Nose/Sinus: Normal nares present Eyes: General: appearance normal, both eyes and all related structures Neck: Neck: no JVD Resp: Auscultation: clear to auscultation bilaterally Cardio: Rate: regular rate Rhythm: regular rhythm GI: Inspection: non-distended GI Palp: Yes Soft to palpation Skin: General skin exam: normal color Neuro: Speech: normal speech Extrem: General: normal to inspection Psych: Mental Status: mental status grossly normal Assessment and Plan Assessment and plan (1) GERD (gastroesophageal reflux disease): Code(s): K21.9 - Gastro-esophageal reflux disease without esophagitis Status: Acute Assessment and Plan: egd (2) Irritable bowel syndrome with diarrhea: Code(s): K58.0 - Irritable bowel syndrome with diarrhea Status: Acute Assessment and Plan: colonoscopy
--- NOTE | 2024-10-22 12:33 | SUR.OPER ---
EGD start 1227 end 1232, Colonoscopy start 1235
[2024-10-22 13:09] VITALS: BP 129/52; PULSE 69; RESP 23; O2SAT 100
[2024-10-22 13:19] VITALS: BP 121/57; PULSE 70; RESP 20; O2SAT 100
[2024-10-22 13:29] VITALS: BP 140/66; PULSE 70; RESP 22; O2SAT 100
== END 2024-10-22 13:35 | disposition home or self-care (01) ==
PROVIDERS: PCP Internal Medicine; Referring Provider Nurse Practitioner; Visit Provider Internal Medicine Gastroenterology
PROC: 0DJ08ZZ Inspection of Upper Intestinal Tract, Via Natural or Artificial Opening Endoscopic (ICD-10-PCS; CPT 45378; principal; 2024-10-22 14:30)
DX: R19.7 Diarrhea, unspecified (principal); D12.3 Benign neoplasm of transverse colon; D12.5 Benign neoplasm of sigmoid colon; K57.30 Diverticulosis of large intestine without perforation or abscess without bleeding; K21.9 Gastro-esophageal reflux disease without esophagitis; K29.50 Unspecified chronic gastritis without bleeding
CPT/HCPCS: 43239; 45385; 88305; J2003; J2704; J7120

== ENCOUNTER 2025-09-03 16:59 | Outpatient (CLI) | payer MEDICARE, OTHER, SELFPAY ==
--- OUTSIDE RECORDS SUMMARY | 2025-09-03 17:03 | XMS_ITS | Encounter Summary ---
Author Organization [facility] Address [address] [place] [address] Care Team Providers Care Uc Architect Name Role Phone Lasha Mcallister MD Primary Care Provider [phone] Josesito Torrez MD Unavailable [phone] Carolyn Denson ANP- Unavailable Unavailab Nathan Sheriff MD Unavailable [phone] Encounter Details Date Type Department Care Team (Late st Contact Info) Description 06/06/2017 Abstract [facility] CONVERSION [address] [place] [address] , Generic Conversion, Social History Tobacco Use Types Packs/Day Years [...] Department Care Team (Late Contact Info) Description 09/09/2025 9:40 AM EMPLOYMENT INTERVIEWER Office Visit [facility] - [address], [address] [place] [address] Niak Beauchamp MD [address] [place] [address] 10/18/2025 12:00 PM EMPLOYMENT INTERVIEWER Appointment [facility] [address] Nika Beauchamp MD [address] [place] [address] 10/28/2025 11:40 AM EMPLOYMENT INTERVIEWER Allied Health/[facility] THREE [facility], [address] [address] Josesito Torrez MD Three [facility]. [address] [address] 11/11/2025 10:45 AM CDT Office Visit [facility] [address] [address] Josesito Torrez MD Three [facility]. [address] [address] documented as of this encounter Visit Diagnoses Not on filedocumented in this encounter Additional Health Concerns Infection Onset Date Last Indicated Resolved Time COVID-19 Rule Out 05/22/2021 05/22/2021 05/23/2021 10:58 AM CDT COVID-19 Rule Out 12/17/2022 12/18/2022 12/18/2022 1:21 AM CDT Norovirus 12/19/2022 12/20/2022 01/17/2023 12:3 2 AM CDT COVID-19 Rule Out 05/30/2024 05/30/2024 05/30/2024 10:20 AM CDT C. difficile 07/12/2024 07/12/2024 COVID-19 Rule Out 06/09/2025 06/09/2025 06/09/2025 12:28 PM CDT Respiratory Rule Out 06/09/2025 06/09/2025 025 12:28 PM CDT documented as of this encounter Care Teams Uc Architect Relationship Specialty Start Date End Date Lasha Mcallister MD [address] [facility] [address] [place] [address] PCP - General INTERNAL MEDICINE 07/06/17 Carolyn Denson, ANP- PCP - [place] - [facility] Attributed Provider 09/05/15 05/23/19 Josesito Torrez MD Three [facility]. [facility] [address] [place] [address] [employer] Revenue Enforcement Collection Agent CARDIOVASCULAR DISEASE 07/06/17 09/21/22 Nathan Tyler MD [address] [place] [facility] 1 [place] [address] Referring Physician 09/22/22 documented as of this encounter
--- OUTSIDE RECORDS SUMMARY | 2025-09-03 17:03 | XMS_ITS | Encounter Summary ---
Author Organization [facility] Address [address] [place] [address] Care Team Providers Care Carpet Repairer Name Role Phone Lasha Mcallister MD Primary Care Provider [phone] Josesito Torrez MD Unavailable [phone] Carolyn Denson Unavailable Unavailab Nathan Sheriff MD Unavailable [phone] Encounter Details Date Type Department Care Team (Late st Contact Info) Description 10/10/2017 Abstract [facility] at [address] [address] Susan Rdz MA Social History [...] PG pt send letter continue current meds ICE ORDER DISPATCHER documented in this encounter Plan of Treatment Upcoming Encounters Date Type Department Care Team (Late st Contact Info) Description 09/09/2025 9:40 AM SERVICE ORDER DISPATCHER Office Visit [facility] Multispecialty Care - [facility] [address] [facility], [address] [place] [address] Nika Beauchamp MD [address] [facility] [place] [address] 10/18/2025 12:00 PM SERVICE ORDER DISPATCHER Appointment [facility] MRI ONE [facility] [place] [address] Nika Beauchamp MD 3 [place] [address] 10/28/2025 11:40 AM SERVICE ORDER DISPATCHER Allied Health/Nurse Visit [facility] THREE [facility] [address], [address] [place] [address] Josesito Torrez MD Three [facility]. [facility] [address] [place] [address] 11/11/2025 10:45 AM CDT Office Visit [facility] [address] [place] [address] Josesito Torrez MD Three [facility]. [facility] [address] [place] [address] documented as of this encounter Procedures Procedure [...] documented as of this encounter Care Teams Carpet Repairer Relationship Specialty Start Date End Date Lasha Mcallister MD [address] [address] PCP - General INTERNAL MEDICINE 07/06/17 Carolyn Denson, ANP- PCP - [place] - [facility] Attributed Provider 09/05/15 05/23/19 Josesito Torrez MD Three [facility]. [facility] [address] [place] [address] [place] Clip On Sunglasses Inspector CARDIOVASCULAR DISEASE 07/06/17 09/21/22 Nathan Tyler MD [address] [facility] 1 [place], [place] [id number] Referring Physician 09/22/22 documented as of this encounter
--- OUTSIDE RECORDS SUMMARY | 2025-09-03 17:03 | XMS_ITS | Encounter Summary ---
Author Organization [facility] Address [address] [place] [address] Care Team Providers Care Insulation Helper Name Role Phone Lasha Mcallister MD Primary Care Provider [phone] Josesito Torrez MD Unavailable [phone] Carolyn Denson ANP- Unavailable Unavailab Nathan Sheriff MD Unavailable [phone] Encounter Details Date Type Department Care Team (Late st Contact Info) Description 08/03/2017 Abstract [facility] CONVERSION [address] [place] [address] , Generic Conversion, Social History [...] (Late Contact Info) Description 09/09/2025 9:40 AM TRANSPORT ENGINEER Office Visit [facility] Multispecialty Care - [address], [address] [place] [address] Nika Beauchamp MD [address] [place] [address] 10/18/2025 12:00 PM TRANSPORT ENGINEER Appointment [place] [address] Nika Beauchamp MD 3 [place] [address] 10/28/2025 11:40 AM TRANSPORT ENGINEER Allied Health/Nurse [facility] THREE [facility], [address] [address] Josesito Torrez MD Three [facility]. [address] [address] 11/11/2025 10:45 AM CDT Office Visit [facility] [address] [address] Josesito Torrez MD Three [facility]. [address] [address] documented as of this encounter Visit Diagnoses [...] documented as of this encounter Care Teams Insulation Helper Relationship Specialty Start Date End Date Lasha Mcallister MD 2043 [facility] [address] [place] [address] PCP - General INTERNAL MEDICINE 07/06/17 Carolyn Denson, ANP- PCP - [place] - [facility] Attributed Provider 09/05/15 05/23/19 Josesito Torrez MD Three [facility]. [facility] [address] [place] [address] [place] Learning Support Assistant CARDIOVASCULAR DISEASE 07/06/17 09/21/22 Nathan Tyler MD [address] [facility] 1 [place] [address] Referring Physician 09/22/22 documented as of this encounter
--- OUTSIDE RECORDS SUMMARY | 2025-09-03 17:03 | XMS_ITS | Clinical Summary ---
Author Organization [facility] Address [address], [address] [place] [address] Phone Care Team Providers Care Ict Sales Representative Name Role Phone Lasha Mcallister MD Primary Care Provider [phone] Hugo Vo MD Unavailable Allergies Active Allergy Reactions Criticality [...] take 2 Puffs by inhalation. 05/28/2021 Active colestipol (COLESTID) 1 GM Tablet Take 1 g by mouth 2 times daily. Active prednisoLONE acetate (PRED FORTE) 1 % Suspension 1 Drop. 04/15/2025 Active potassium chloride SA (KLORCON M) 20 MEQ Tablet Controlled Release Take 20 mEq by mouth. 06/03/2017 Active moxifloxacin (VIGAMOX) 0.5 % Solution 1 Drop. 04/15/2025 Active Mometasone Furoate (ASMANEX) 220 MCG/ACT AEROSOL POWDER, BREATH ACTIVATED 03/18/2017 Active loperamide (IMODIUM) 2 MG Capsule Take 2 mg by mouth. 01/22/2025 Active Bromfenac Sodium 0.07 % Solution 04/16/2025 Active diphenoxylate-a tropine (LOMOTIL) 2.5-0.025 MG Tablet Take 1 Tablet by mouth. 12/07/2022 Active Active Problems Problem Noted Date Diagnosed Date Iron deficiency anemia 05/23/2025 Anemia due to stage 3b chronic kidney disease Encounters Date Type Department Care Team Description 06/06/2025 10:30 AM CDT Clinical Support [facility] [address] [address] Anemia due to stage 3b chronic kidney disease (Primary Dx) 06/06/2025 Travel from Last 3 Months Family History [...] Sign Reading Time Taken Comments Blood Pressure 146/64 06/06/2025 11:15 AM CDT Pulse 60 06/06/2025 11:15 AM CDT Temperature 36.8 C (98.2 F) 06/06/2025 11:15 AM CDT Respiratory Rate 18 06/06/2025 11:15 AM CDT Oxygen Saturation 95% 06/06/2025 11:15 AM CDT Inhaled Oxygen Concentration - - Weight 60.6 kg (133 lb 9.6 oz) 05/23/2025 1:42 P M CDT Height 170.2 cm (5' 7) 05/23/2025 1:42 PM CDT Body Mass Index 20.92 05/23/2025 1:42 PM CDT Plan of Treatment Upcoming Encounters Date Type Department Care Team (Late st Contact Info) Description 09/19/2025 1:30 PM VICE PRESIDENT PRECISION MARKET INSIGHTS Office Visit [facility] [address] [address] Hugo Vo MD [address] [place] [address] Health Maintenance Due Date Last Done Comments Hepatitis C Virus (HCV) Screening 1945 TdaP Immunization 1945 Zoster Immunization (1 of 2) 1994 Medicare Initial AWV G0438 03/05/2010 Pneumococcal Immunization (50+ years) (3 of 3 - PCV20 or PCV21) 01/24/2015 11/29/2014, 07/06/2000 Respiratory Syncytial Virus (RSV) Immunization (Adult) (1 - 1-dose 75+ series) 2019 DEXA Bone Density 07/14/2024 07/14/2022 Influenza Immunization (#1) 05/06/202506/05, 08/23/2021, 06/10/2020, Additional history exists SARS-COV-2 Immunization ( season) 2025 05/25/2022, 08/23/2021, 07/18/2021, Additional history exists Hepatitis B Immunization Aged Out No longer eligible based on patient's age to complete this topic Human Papillomavirus (HPV) Immunization (No Doses Required) Completed Meningococcal Immunization (ACWY) Aged Out No longer eligible based on patient's age to complete this topic Rotavirus Immunization Aged Out No lo nger eligible based on patient's age to complete this topic Insurance MEDICARE [facility] [id number] Advance Directives Documents on File Type Date Recorded Patient Rn Licensed Practical Expl anation Power of Erector Operator for Health Care 04/27/2024 2:12 PM Care Teams Ict Sales Representative Relationship Specialty Start Date End Date Lasha Mcallister MD 2043 [facility] 23 [place] [address] PCP - General Internal Medicine 04/27/24 Hugo Vo MD [address] [phone] Consulting Physician Oncology 04/27/24
--- OUTSIDE RECORDS SUMMARY | 2025-09-03 17:03 | XMS_ITS | Encounter Summary ---
Author Organization [facility] Address [address] [place] [address] Care Team Providers Care Filenet Admin Name Role Phone Lasha Mcallister MD Primary Care Provider [phone] Josesito Torrez MD Unavailable [phone] Carolyn Denson ANP- Unavailable Unavailab Nathan Sheriff MD Unavailable [phone] Encounter Details Date Type Department Care Team (Late st Contact Info) Description 11/15/2016 Abstract [facility] CONVERSION [address] [place] [address] , Generic Conversion, Social History [...] (Late Contact Info) Description 09/09/2025 9:40 AM REFINISH TECHNICIAN Office Visit [facility] Medical Group Multispecialty Care - [address], [address] [place] [address] Nika Beauchamp MD [address] [place] [address] 10/18/2025 12:00 PM REFINISH TECHNICIAN Appointment [facility] [address] Nika Beauchamp MD [address] [place] [address] 10/28/2025 11:40 AM REFINISH TECHNICIAN Allied Health/Nurse Visit [facility] THREE [facility], [address] [address] Josesito Torrez MD Three [facility]. [address] [address] 11/11/2025 10:45 AM CDT Office Visit [facility] [address] [address] Josesito Torrez MD Three [facility]. [address] [address] documented as of this encounter Visit Diagnoses [...] documented as of this encounter Care Teams Filenet Admin Relationship Specialty Start Date End Date Lasha Mcallister MD 2043 [facility] 23 [place] [address] PCP - General INTERNAL MEDICINE 07/06/17 Carolyn Denson, ANP- PCP - [place] - [facility] Attributed Provider 09/05/15 05/23/19 Josesito Torrez MD Three [facility]. [facility] [address] [place] [address] [place] Insulation Setter CARDIOVASCULAR DISEASE 07/06/17 09/21/22 Nathan Tyler MD 30 [facility] 1 [place] [address] Referring Physician 09/22/22 documented as of this encounter
--- OUTSIDE RECORDS SUMMARY | 2025-09-03 17:03 | XMS_ITS | Encounter Summary ---
Author Organization [facility] Address [address] [place] [address] Care Team Providers Care Integration Analyst Name Role Phone Lasha Mcallister MD Primary Care Provider [phone] Nathan Tyler MD Unavailable [phone] Encounter Details Date Type Department Care Team (Late st Contact Info) Description 03/02/2023 MyChart Message Enc [facility] Medical [facility] [address] [place] [address] N-Sided, [facility] Provider Air Quality Message Social History [...] place to sleep or slept in a fpc (including now)? No 12/18/2022 Comments No Sex [...] Assessment Author Status No 12/18/2022 4:54 AM Yasmin Atkinson RN Active * Are you blind or do you have serious difficulty seeing, even when wearing glasses? Answer Date of Assessment Author Status No 12/18/2022 4:54 AM Yasmin Atkinson RN Active * Do you have serious difficulty walking or climbing stairs? Answer Date of Assessment Author Status No 12/18/2022 4:54 AM Yasmin Atkinson RN Active * Do you have difficulty dressing or bathing? Answer Date of Assessment Author Status No 12/18/2022 4:54 AM Yasmin Atknison RN Active * Because of a physical, mental, or emotional condition, do you have difficulty doing errands alone such as visiting a doctor's office or shopping? Answer Date of Assessment Author Status No 12/18/2022 4:54 AM Yasmin Atkinson RN Active documented as of this encounter Mental Status * Because of a physical, mental, or emotional condition, do you have serious difficulty concentrating, remembering, or making decisions? Answer Entry Date Author Status No 12/18/2022 4:54 AM Yasmin Atkinson RN Active documented in this encounter Plan of Treatment Upcoming Encounters Date Type Department Care Team (Late st Contact Info) Description 09/09/2025 9:40 AM PAPER MACHINE OPERATOR Office Visit [facility] Medical Group Multispecialty Care - [facility] [address] [facility], [address] [place] [address] Nika Beauchamp MD 3 [place] [address] 10/18/2025 12:00 PM PAPER MACHINE OPERATOR Appointment [facility] [place] [address] Nika Beauchamp MD 3 [place] [address] 10/28/2025 11:40 AM PAPER MACHINE OPERATOR Allied Health/Nurse Visit [facility] THREE [facility], [address] [place] [address] Josesito Torrez MD Three [facility]. [facility] [address] [place] [address] 11/11/2025 10:45 AM CDT Office Visit [facility] [address] [place] [address] Josesito Torrez MD Three [facility]. [facility] [address] [place], [place] [address] documented as of this encounter Visit Diagnoses Not on filedocumented in this encounter Additional Health Concerns Infection Onset Date Last Indicated Resolved Time COVID-19 Rule Out 05/30/2024 05/30/2024 05/30/2024 10:20 AM CDT C. difficile 07/12/2024 07/12/2024 COVID-19 Rule Out 06/09/2025 06/09/2025 06/09/2025 12:28 PM CDT Respiratory Rule Out 06/09/2025 06/09/2025 12:28 PM CDT Assessment Noted Time PHQ-9 Depression Total Score: 1 04/06/20 21 1:03 PM CDT documented as of this encounter Care Teams Integration Analyst Relationship Specialty Start Date End Date Lasha Mcallister MD [address] [place] [address] [address] [place] [phone] PCP - General INTERNAL MEDICINE 07/06/17 Nathan Tyler MD [address] [place] [address] [address] Referring Physician 09/22/22 documented as of this encounter
--- OUTSIDE RECORDS SUMMARY | 2025-09-03 17:03 | XMS_ITS | Encounter Summary ---
Author Organization [facility] Address [address] [place] [address] Phone Care Team Providers Care Operations Asst Name Role Phone Lasha Mcallister MD Primary Care Provider [phone] Hugo Vo MD Unavailable [phone] Encounter Details Date Type Department Care Team (Late st Contact Info) Description 11/01/2024 Telephone [facility] [address] [place] [address] Hugo Vo MD [address] [place] [address] Social History Tobacco Use Types Packs/Day Years Used Date Smoking Tobacco: Never Smokeless Tobacco: Never Alcohol Use Standard Drinks/Week Comments Not Currently 0 (1 standard drink = 0.6 oz pur e alcohol) Comments Unknown Sex and Gender Information Value Date Recorded Sex Assigned at Not on file Legal Sex Female 1:14 PM CDT Gender Identity Not on file Sexual Orientation Not on file documented as of this encounter Miscellaneous Notes * Telephone Encounter - Cynthia Franklin - 11/01/2024 2:28 PM CST Didn't get an answer when I called about missed appt. IDE FURNACE OPERATOR documented in this encounter Plan of Treatment Upcoming Encounters Date Type Department Care Team (Late st Contact Info) Description 09/19/2025 1:30 PM CYANIDE FURNACE OPERATOR Office Visit [facility] [address] [place] [address] Hugo Vo MD [address] [place] [phone] documented as of this encounter Visit Diagnoses Not on filedocumented in this encounter Care Teams Operations Asst Relationship Specialty Start Date End Date Lasha Mcallister MD [address] [facility] [address] [place] [address] PCP - General Internal Medicine 04/27/24 Hugo Vo MD [address] [facility] [address] [place] [address] Consulting Physician Oncology 04/27/24 documented as of this encounter
--- OUTSIDE RECORDS SUMMARY | 2025-09-03 17:03 | XMS_ITS | Clinical Summary ---
Author Organization [facility] [address] [facility] Address [address] [place] [address] Care Team Providers Care Mine Technician Name Role Phone Lasha Mcallister MD Primary Care Provider Allergies Active Allergy Reactions Criticality Noted Date Comments Meperidine Nausea And Vomiting Low 03/03/2016 Medications fluticasone propion-salmetero L (Advair Diskus) 250-50 mcg/dose diskus inhalerIndication s:Bronchospasm Prevention with COPD,Maintenance Therapy for Asthma Inhale 1 puff 2 (two) times a day Hasn't used in a year Active albuterol HFA (PROVENTIL HFA,VENTOLIN HFA,PROAIR HFA) 90 mcg/actuation inhalerIndication s:Bronchospasm Prevention,Chroni c Obstructive Pulmonary Disease Inhale 2 puffs every 6 (six) hours as needed for wheezing or shortness of breath Hasn't used in months 1 Active ALPRAZolam (Xanax) 0.25 mg tabletIndications :anxiety Take 1 tablet (0.25 mg total) by mouth 3 (three) times a day as needed for anxiety 8 Active warfarin (COUMADIN) 2.5 mg tabletIndications :atrial fibrillation Take 1 half tablet (2.5 mg total) by mouth as directed 7.5 mg Wed & Sat 5mg Mon, Tues, Thurs, Fri, Sun Active temazepam (RESTORIL) 15 mg capsuleIndication s:Insomnia Take 1 capsule (15 mg total) by mouth nightly as needed for sleep 4 Active spironolactone (ALDACTONE) 25 mg tabletIndications :hypertension Take 0.5 tablets (12.5 mg total) by mouth regional project manager before breakfast Active potassium chloride ER 20 mEq CR tabletIndications :supplement Take 1 tablet (20 mEq total) by mouth 2 (two) times a day [address] (PROTONIX) 40 mg EC tabletIndications :Treatment of Non-Bleeding Gastric Disorder Take 1 tablet (40 mg total) by mouth regional project manager before breakfast Active loperamide (IMODIUM) 2 mg capsuleIndication s:diarrhea Take 1 capsule (2 mg total) by mouth 4 (four) times a day as needed for diarrhea 5 Active latanoprost (XALATAN) 0.005 % ophthalmic solutionIndicatio ns:ocular hypertension,open angle glaucoma Administer 1 drop into the left eye nightly Active furosemide (LASIX) 40 mg tabletIndications :Edema,hypertensi on Take 1 tablet (40 mg total) by mouth every other day 4 Active cetirizine (ZyrTEC) 10 mg tabletIndications :Allergic Conjunctivitis,Al lergic Rhinitis Take 1 tablet (10 mg total) by mouth daily as needed for allergies 4 Active calcium carbonate-vitamin D3 1500 mg (600 mg elemental) -200 units per tabletIndications :Prevention of Vitamin D Deficiency Take 1 tablet by mouth regional project manager before breakfast 7 Active buPROPion XL (WELLBUTRIN XL) 300 mg 24 hr tabletIndications :Anxiety with Depression Take 1 tablet (300 mg total) by mouth every morning Active benzonatate (TESSALON) 100 mg capsuleIndication s:Cough Take 2 capsules (200 mg total) by mouth 2 (two) times a day as needed for cough 4 Active atorvastatin (LIPITOR) 20 mg tabletIndications :hyperlipidemia Take 1 tablet (20 mg total) by mouth nightly Active multivitamin with minerals (Multiple Vitamin-Minerals) tabletIndications :Mineral Deficiency Prevention,Vitami n Deficiency Prevention Take 1 tablet by mouth regional project manager before breakfast Active ascorbic acid (ascorbic acid with nellie hips) 500 mg tablet,chewableIn dications:supplem ent Take 1 tablet/chew tab (500 mg total) by mouth regional project manager before breakfast Active magnesium gluconate 200 mg tabletIndications :hypomagnesemia Take 1 tablet (200 mg total) by mouth nightly Active methazolAMIDE (NEPTAZANE) 50 mg tablet Take 1 tablet (50 mg total) by mouth 2 (two) times a day 3 tablet 5 Active bromfenac 0.07 % drops 5 Active diphenoxylate-atr opine (LOMOTIL) 2.5-0.025 mg per tabletIndications :diarrhea Take 1 tablet by mouth 3 (three) times a day 5 Active moxifloxacin (VIGAMOX) 0.5 % ophthalmic solutionIndicatio ns:post op drop Administer 1 drop into the right eye 4 (four) times a day 5 Active prednisoLONE acetate (PRED FORTE) 1 % ophthalmic suspensionIndicat ions:post op drop Administer 1 drop into the right eye 4 (four) times a day 5 Active Active Problems Problem Noted Date Diagnosed Date Primary open angle glaucoma of left eye, mild st age 0703/27/2025 Shortness of breath 07/26/2014 Chest pain 07/26/2014 Atrial fibrillation 07/26/2014 Disorder of breast 06/02/2011 Malignant neoplasm of breast 04/28/2011 Resolved Problems Problem Noted Date Diagnosed Date Resolved Date Nuclear sclerotic cataract of right eye 03/27/2025 04/24/2025 Nuclear sclerotic cataract of left eye 03/27/2025 05/08/2025 Low-tension glaucoma of left eye, moderate stage 03/27/2025 05/08/2025 Surgical History Surgery Date Site/Laterality Comments BREAST BIOPSY 09/05/1999 - 09/04/2000 Right MALIGNANT REDUCTION MAMMAPLASTY 09/05/2009 - 09/04/2010 Left LIFT INSERT / REPLACE / REMOVE PACEMAKER 2021 - 05/05/2022 Left [employer]. Left Chest MITRAL VALVE SURGERY 09/05/2017 - 09/04/2018 tricuspid & mitral valve repair & replacement with ring BREAST LUMPECTOMY 09/05/2004 - 09/04/2005 Right with implant BREAST SURGERY 09/05/2009 - 09/04/2010 Right breast implant replacement CHOLECYSTECTOMY 09/05/1962 - 09/04/1963 HYSTERECTOMY 09/05/1982 - 09/04/1983 GARCIA-MAZE MICROWAVE ABLATION 09/05/2017 - 09/04/2018 CATARACT EXTRACTION W/ INTRA OCULAR LENS IMPLANT AND ENDOCYCLOPHOTOCOAGULATION 04/24/2025 Eye/Right Procedure: EXTRACTION CATARACT LASER ASSISTED WITH LENS IMPLANT.; Surgeon: Juan Carlos Barber MD; Location: [facility] OR POD [facility]; Service: Ophthalmology; Laterality: Right; Medical devices from this surgery are in the Medical Devices section. CATARACT EXTRACTION W/ INTRA OCULAR LENS IMPLANT AND ENDOCYCLOPHOTOCOAGULATION 05/08/2025 Eye/Left Procedure: EXTRACTION CATARACT LASER ASSISTED WITH LENS IMPLANT.; Surgeon: Juan Carlos Barber MD; Location: [facility] OR [facility]OD 4; Service: Ophthalmology; Laterality: Left; Medical devices from this surgery are in the Medical Devices section. Medical History Medical History Date Comments Breast cancer (HCC) RIGHT - JACKI GNANCY CAD (coronary artery disease) 2018 mi ld/nonobstructive, from cath prior to valve repair. Atrial fibrillation (HCC) underw ent MAZE procedure during valve surgery but did not have left atrial appendage ligation. Remains on lifelong anticoagulation with warfarin. HTN (hypertension) HLD (hyperlipidemia) Pacemaker 04/2022 [employer] dual lead PM 2021 SSS (sick sinus syndrome) (HCC) Asthma Sleep apnea mouth guard nigh tly; no machine CKD (chronic kidney disease) Anxiety Depression GERD (gastroesophageal reflu x disease) IBS (irritable bowel syndrome) Pre-diabetes Chronic right-sided CHF (con gestive heart failure) (HCC) PONV (postoperative nausea a nd vomiting) Family History Medical History Relation Name Comments Heart disease Father Family history of cardiac disorder - (Added by TW Conv) Breast cancer Father's Sister Heart disease Mother Family history of cardiac disorder - (Added by TW Conv) Breast cancer Mother's Sister Breast cancer Niece Anesthesia problems Neg Hx Relation Name Status Comments Father Father's Sister Mother Mother's Sister Niece Social History Tobacco Use Types Packs/Day Years Used Date Smoking Tobacco: Former Cigarettes 0.5 35 1 970 - 2005 Smokeless Tobacco: Never Tobacco Cessation:Counseling Given: Not Answered Alcohol Use Standard Drinks/Week Comments Yes 0 (1 standard drink = 0.6 oz pur e alcohol) AUDIT-C Answer Date Recorded Q1: How often do you have a drink containing alc ohol? Monthly or less 04/29/2025 Q2: How many drinks containi ng alcohol do you have on a typical day when you are drinking? 1 or 2 04/29/2025 Q3: How often do you have si x or more drinks on one occasion? Never 04/29/2025 Personal Safety Answer Date Recorded Have you ever been in or are you currently in a harmful physical or emotional relationship or is someone making you feel afraid or unsafe? Denies 05/08/2025 Comments No Sex and Gender Information Value Date Recorded Sex Assigned at Not on file Legal Sex Female 12:18 PM LIME HIDE INSPECTOR Gender Identity Not on file Sexual Orientation Not on file Obstetrics History Para Term AB IAB SAB Ectopic Multiple Livin g Live Births 5 4 4 Date Outcome GA Total Labor Labor/2nd/3rd Weight Sex Type Anes PTL Mary A1 A5 Name Clin Term Term Term Term Last Filed Vital Signs Vital Sign Reading Time Taken Comments Blood Pressure 132/59 05/08/2025 12:40 PM CDT Pulse 61 05/08/2025 12:40 PM CDT Temperature 36.3 C (97.3 F) 05/08/2025 12:15 PM CDT Respiratory Rate 18 05/08/2025 12:40 PM CDT Oxygen Saturation 98% 05/08/2025 12:40 PM CDT Inhaled Oxygen Concentration - - Weight 59 kg (130 lb) 05/08/2025 8:55 AM CDT Height 170.2 cm (5' 7) 05/08/2025 8:55 AM CDT Body Mass Index 20.36 05/08/2025 8:55 AM CDT Plan of Treatment Health Maintenance Due Date Last Done Comments Depression Screening 1944 DTaP/Tdap/Td Vaccine (1 - Tdap) 1955 Hepatitis B Screening 1962 Zoster Vaccine (1 of 2) 1994 Well Visit 65+ 2009 Pneumococcal vaccine 65+ (3 of 3 - PCV20 or PCV21) 11/30/2019 11/29/2014, 07/06/2000 Osteoporosis Screening-Bone Density Scan 07/14/2024 07/14/2022 Covid-19 Vaccine (6 - 2024-2 6 season) 2025 05/25/2022, 08/23/2021, 07/18/2021, Additional history exists Influenza Vaccine (#1) 2025 , 07/24/2019, 06/21/2018, Additional history exists Fall Risk Assessment 05/08/2026 05/08/2025 Medical Devices Implanted Type Area Site Physician Device Identifier Shelf Expiration Date Model / Serial / Lot [employer] Lens Tecnis Eyhance Iol [id number] - [id number] - [id number] Implanted:Qty: 1 on 04/24/2025 by Juan Carlos Barber MD at [facility] Lens Right: Eye [employer] [id number] 01/01/2028 [id number] 15 / [id number] / [place] [employer] Lens Iol Monofocal Posterior Biconvex Optic Single Piece Tecnis Eyhance 6.0x13.0 +23.5d Hydrophobic Acrylic [id number] - [id number] - [id number] Implanted:Qty: 1 on 05/08/2025 by Juan Carlos Barber MD at [facility] Lens Left: Eye [employer] [id number] 07/06/2027 [id number] 35 / [id number] / Pacemaker-2021 Implanted:05/03 (Quantity not on file) Pacemaker Left: Chest Wall [employer] MODEL #[id number] / DEVICE SERIAL #[id number] / Description:unknown date & m anufacturer [place] Stent Ophthalmic [place] Micro Bypass Istent Infinite Is-3 - [id number] - [id number] Implanted:Qty: 1 on 04/24/2025 by Juan Carlos Barber MD at [facility] Right: Eye [employer] 10/05/2025 IS-3 / [id number] [employer] Stent Ophthalmic [place] Micro Bypass Istent Infinite Is-3 - [id number] - [id number] Implanted:Qty: 1 on 05/08/2025 by Juan Carlos Barber MD at [facility] Left: Eye [employer] [id number] 12/03/2025 IS-3 / [id number] Description:Infinite Insurance [place] [employer] [place] [employer] [employer] [place] [facility] Advance Directives For more information, please contact: [phone] * Full Code (Latest Code Status on File) Date Activated Date Inactivated Comments 05/08/2025 8:27 AM 05/08/2025 4:55 PM * Full Code Date Activated Date Inactivated Comments 04/24/2025 8:50 AM 04/24/2025 5:29 PM Care Teams Mine Technician Relationship Specialty Start Date End Date Lasha Mcallister MD PCP - General 05/30/18
--- OUTSIDE RECORDS SUMMARY | 2025-09-03 17:03 | XMS_ITS | Patient Health Record ---
Author Organization [facility] Address [address] [place] [address] Phone [phone] Care Team Providers Care Title Coordinator Name Role Phone REDD RICK MD Primary Care Provider Lisandra Lilly MD, [facility] Allergies No Known Allergies Reason For Referral No Information Medications Medication SIG (Take, Route, Frequency, Duration) Notes Start Date End Date Diagnosis (ICD Code) Status Furosemide 40 MG Tablet TAKE 1 TABLET BY MOUTH ONCE DAILY Oral; Duration: 90 Active buPROPion HCl ER (XL) 300 MG Tablet Extended Release 24 Hour TAKE 1 TABLET BY MOUTH ONCE DAILY IN THE MORNING Oral Active Atorvastatin Calcium 20 MG Tablet 1 tablet Oral Once a day Active Temazepam 15 MG Capsule TAKE 1 CAPSULE BY MOUTH EVERY DAY AT BEDTIME Oral; Duration: 90 Active Spironolactone 25 MG Tablet TAKE 1/2 (ONE-HALF) TABLET BY MOUTH ONCE DAILY Oral; Duration: 90 Active Pantoprazole Sodium 40 MG Tablet Delayed Release Oral; Duration: 90 Active Latanoprost 0.005 % Solution INSTILL 1 DROP INTO EACH EYE AT BEDTIME Ophthalmic; Duration: 30 [id number],Un available Active Warfarin Sodium 2.5 MG Tablet 1 tablet Oral Once a day Active Social History Tobacco Use: Social History Observation Description Date Details (start date - stop date) Never Smoker NA - NA Sex Observation Social History Observation Description Sex Observation Female Social History Tobacco Use: Social Info Question Answer Notes Tobacco Use/Smoking Are you a nonsmoker Section Notes: The patient is a retired catarino se. 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 The patient denies tobacco, alcohol, or illicit drug abuse. Problems Problem Type SNOMED Code ICD Code Dates Problem Status W/U Status Risk Notes Problem Localized, primary osteoarthritis of the shoulder region (560780770) Primary osteoarthrit is, right shoulder (M19.011) Added On:2023 Active confirmed Problem Pain of right shoulder region (finding) (0577420603) Pain in right shoulder (M25.511) Added On:2023 Active confirmed Problem Bursitis of right shoulder (394849191755424) Bursitis of right shoulder (M75.51) Added On:2023 Active confirmed Plan Of Treatment No Information Insurance Providers Payer Name Payer Address Payer Phone Subscriber Number Group Number Insured Name Patient Relationship to Insured Coverage Start Date Coverage End Date [place] [address] [address] [place] [address] [id number] [place] Self - patient is the insured [place] [address] [place] [id number] [place] Self - patient is the insured Medical (General) History Medical History History ICD Code IBS Asthma GERD Diverticulitis Breast cancer Anemia Depression Migraine CHF AFIB Surgical History Surgery Date(Month/Year) Right mastectomy 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
[2025-09-03 18:01] LABS: Toxigenic C. Diff NEGATIVE (NEGATIVE)
== END 2025-09-03 17:00 | disposition home or self-care (01) ==
PROVIDERS: PCP Internal Medicine; Visit Provider Nurse Practitioner
DX: K58.0 Irritable bowel syndrome with diarrhea (principal)
CPT/HCPCS: 87493